=== PATIENT | male | born 1965 | race Hispanic/Latino ===

== ENCOUNTER 2021-12-19 16:02 | Inpatient (IN) | payer SELFPAY ==
--- NOTE | 2021-12-19 16:48 | Emergency Department Report ---
History of Present Illness - General Chief Complaint: Psych Stated Complaint: OD/SUICIDAL Time Seen by Provider: 12/19/21 16:14 Source: EMS Mode of arrival: Stretcher Limitations: No Limitations - History of Present Illness Initial Comments: 56-year male with a past medical history schizophrenia and depression presents to the hospital complaining of suicide attempt, depression, and drug relapse. Patient drink alcohol at 1 AM and smokes crack cocaine. He was distraught due to his relapse and around 6 AM took a bolus ingestion of Tylenol PM. Dose of acetaminophen 500 mg and dose of diphenhydramine 25 mg. Patient presents with a empty 50 capsule bottle and estimates he took 25 to 30 tablets this morning. Complains of some mild nausea without vomiting and some mild drowsiness but patient is easily arousable. No pain reported. Patient denies hallucinations and is not currently taking any other prescribed medication - Related Data Allergies Allergy/AdvReac Type Severity Reaction Status Date / Time No Known Allergies Allergy Unverified 02/23/20 02:39 ED Review of Systems ROS: Stated complaint: OD/SUICIDAL Other details as noted in HPI Comment: All other systems reviewed and negative ED Past Medical Hx - Surgical History Additional Surgical History: Cervical Discectomy. Tonsillectomy. Left Knee - Social History Smoking Status: Current Some Day Smoker Substance Use Type: Alcohol, Cocaine, Marijuana ED Physical Exam - General Limitations: No Limitations - Other Other exam information: General: No acute distress Head: Atraumatic Eyes: normal appearance ENT: Moist mucous membranes Neck: Normal appearance, no midline tenderness Chest: Clear to auscultation bilaterally CV: Regular rate and rhythm Abdomen: Soft, normal bowel sounds, nontender, nondistended, no rebound or guarding Back: Normal inspection Extremity: Normal inspection, full range of motion Neuro: Alert O x 3, no facial asymmetry, speech clear, no gross motor sensory deficit Psych: Appropriate behavior Skin: No rash ED Course Vital Signs 12/19/21 12/19/21 12/19/21 16:06 17:59 18:56 Temperature 98.0 F 97.8 F Pulse Rate 100 H 88 72 Respiratory 18 21 14 Rate Blood Pressure 109/76 126/86 132/56 [Right] O2 Sat by Pulse 98 100 99 Oximetry 12/19/21 12/19/21 20:01 20:03 Temperature 98.5 F Pulse Rate 78 Respiratory 20 Rate Blood Pressure 142/92 [Right] O2 Sat by Pulse 100 100 Oximetry - Reevaluation(s) Reevaluation #1: 12/19/21 17:39 RN called to expedite ordered IV NAC given elevated tylenol and lft's - Consultations Consultation #1: 12/19/21 16:59 RAMOS consulted at poison control. agree with Acetadote treatment based on unclear time of ingestion and single ingestion greater than 150 mg/kg. Recommends 2 hours prior to completion of the final infusion of Acetadote (third bag) recommends repeat AST, ALT, Tylenol, and INR to evaluate for the following parameters AST< 100 ALT < 100 INR < 1.5 tylenol < 10 If the results are greater than the parameters provided above (check 2 hours before completion of the final 16-hour infusion of Acetadote) then you need to repeat another 16-hour infusion of Acetadote. May call poison control for further clarification as needed Also recommend monitoring for anticholinergic poisoning given Benadryl overdose 12/19/21 17:40 Case discussed with poison control regarding elevated Tylenol and LFTs. Agree with current management to start NAC. 12/19/21 17:46 Received call back from poison control at this time who recommends a dose of fomepizole 15 mg/kg x 1 dose. Indication is that Tylenol level X ALT level is greater than 10,000 ED Medical Decision Making - Lab Data Result diagrams: 12/19/21 Unknown 12/19/21 Unknown - EKG Data -: EKG Interpreted by [facility] EKG shows normal: sinus rhythm, intervals Rate: normal - Medical Decision Making 56-year-old male presents to the hospital with depression, polysubstance abuse, and intentional overdose. Patient admits to drinking alcohol, crack use, and a bolus ingestion of Tylenol with diphenhydramine at approximately 6 AM. Bolus ingestion is greater than 150 mg/kg therefore NAC was ordered. Tylenol level and LFTs were elevated with normal INR. Poison control was contacted with recommendation to initiate NAC and to repeat the recommended labs 2 hours prior to completion of 16-hour infusion to determine if infusion needs to be continued for an additional 16 hours. Fomepizole x1 dose has also been ordered as recommended by poison control. patient also had ingestion of Benadryl however, no signs of anticholinergic poisoning at this time.These recommendations were placed in my note on the consults. We will continue to monitor. Patient will be admitted to the hospitalist service for further treatment. 1013 was signed Critical Care Time: Yes Critical care time in (mins) excluding proc time.: 35 Critical care attestation.: If time is entered above; I have spent that time in minutes in the direct care of this critically ill patient, excluding procedure time. Critical Care Time: 35 Minutes of critical care time excluding procedures were used in the care of the patient. I came immediately to the bedside upon patient's arrival. I obtained history from EMS at the bedside. I discussed treatment plan with the nursing team members. I reviewed electronic record. I spoke with family to obtain medical history. Patient required multiple interventions and reassessments. Spoke with posion control several times. hospitalist informed for admission ED Disposition Clinical Impression: Tylenol overdose, Suicidal ideation, Cocaine abuse, Depression, Anticholinergic drug overdose, Schizophrenia Disposition: ADMITTED INPATIENT Is pt being admited?: Yes Condition: Stable Time of Disposition: 18:02
[2021-12-19 17:00] LABS: Basophils % (Auto) 0.4 % (0.0-1.8); Eosinophils # (Auto) 0.1 K/mm3 (0.0-0.4); Eosinophils % (Auto) 0.5 % (0.0-4.3); Hematocrit 42.3 % (35.5-45.6); Hemoglobin 14.7 gm/dl (11.8-15.2); Lymphocytes # (Auto) 1.4 K/mm3 (1.2-5.4); Lymphocytes % (Auto) 13.4 % (13.4-35.0); Mean Corpuscular HGB Conc 35 % (32-34); Mean Corpuscular Volume 89 fl (84-94); Monocytes # (Auto) 0.9 K/mm3 (0.0-0.8); Platelet Count 232 K/mm3 (140-440); Red Blood Count 4.75 M/mm3 (3.65-5.03); Red Cell Distribution Width 13.1 % (13.2-15.2)
[2021-12-19] MEDS ORDERED: WATER IV ONE ×3 (17:00→22:00)
[2021-12-19] MEDS ORDERED: DEXTROSE 5% IV ONE ×3 (17:00→22:00)
[2021-12-19] MEDS ORDERED: ACETADOTE IV ONE ×3 (17:00→22:00)
[2021-12-19 17:19] LABS: INR 1.03 (0.87-1.13)
[2021-12-19 17:20] LABS: Partial Thromboplastin Time 31.4 Sec. (24.2-36.6)
[2021-12-19 17:24] LABS: Alanine Aminotransferase 216 units/L (7-56); Albumin 4.5 g/dL (3.9-5); BUN/Creatinine Ratio 17; Bilirubin,Direct 0.8 mg/dL (0-0.2); Blood Urea Nitrogen 15 mg/dL (9-20); Calcium 9.2 mg/dL (8.4-10.2); Hemolysis Index 5
[2021-12-19] MEDS ORDERED: SUCCINYLCHOLINE CHLORIDE 200 MG/10 ML INJ MDV ONE (17:37)
[2021-12-19] MEDS ORDERED: ALBUTEROL 2.5 MG/3 ML NEBU IH PRN (18:04)
[2021-12-19] MEDS ORDERED: HYDROmorphone 1 MG/1 ML INJ IV PRN (18:04)
[2021-12-19] MEDS ORDERED: MORPHINE 2 MG/1 ML INJ IV PRN (18:04)
--- NOTE | 2021-12-19 18:04 | History and Physical Report ---
History of Present Illness Chief complaint: I was trying to kill myself History of present illness: 56 YO Male with MDD, Schizophrenia, PSA, Cocaine Dependence, OA, Nicotine Dependence, ETOH Dependence presents to ED for evaluation. Patient reports "I was trying to kill myself". Patient states that he has been feeling depressed over the past several days and subsequently began drinking alcohol at 1 AM and ingested crack cocaine. Patient states that he subsequently became distraught due to his relapse and at approximately 6 AM the patient ingested approximately 25-30 acetaminophen 500 mg tablets and a dose of diphenhydramine 25 mg and attempt to take his own life. EMS was notified and upon arrival the patient was found to be in distress and subsequently transported to [facility] for further care and evaluation of the aforementioned symptoms. The patient was seen and evaluated in the emergency department. All lab and imaging studies reviewed. Poison control notified. Patient treated with Acetadote as per poison control recommendations and admitted to [facility]. Patient is lethargic but arousable at the time my evaluation and has a positive gag reflex and is able protect his airway without difficulty. No reports of fever, chills, chest pain, palpitation, productive cough, skin rash, recent contact, trauma, known exposure to COVID-19. No prior admission for review. No medication listed at time of admission for reconciliation. Advanced care planning conducted in ED. 1013 placed in the emergency department. Mental health team consulted in ED. Past History Past Medical History: other (See HPI) Past Surgical History: total knee replacement, tonsillectomy, Other (Cervical discectomy) Social history: single, alcohol abuse Family history: hypertension Medications and Allergies Allergies Allergy/AdvReac Type Severity Reaction Status Date / Time No Known Allergies Allergy Unverified 02/23/20 02:39 Active Meds: Active Medications Acetylcysteine 9,510 mg/ (Dextrose) 247.55 mls @ 200 mls/hr IV ONCE ONE Stop: 12/19/21 18:14 Last Admin: 12/19/21 17:38 Dose: 200 mls/hr Acetylcysteine 3,170 mg/ (Dextrose) 515.85 mls @ 125 mls/hr IV ONCE ONE Stop: 12/19/21 22:07 Acetylcysteine 6,340 mg/ (Dextrose) 1,031.7 mls @ 62.5 mls/hr IV ONCE ONE Stop: 12/20/21 14:30 Fomepizole 950 mg/ Sodium (Chloride) 100.95 mls @ 200 mls/hr IV ONCE ONE Stop: 12/19/21 19:15 Review of Systems Constitutional: no weight loss, no weight gain, no fever, no chills Ears, nose, mouth and throat: no ear pain, no tinnitis, no nose pain, no nasal congestion Cardiovascular: no chest pain, no palpitations, no syncope Respiratory: no cough, no excessive sputum, no shortness of breath, no dyspnea on exertion Gastrointestinal: nausea, no abdominal pain, no diarrhea, no constipation, no hematemesis Genitourinary Male: no hematuria, no flank pain, no discharge, no urinary frequency, no urinary hesitancy, no nocturia Rectal: no pain, no incontinence, no bleeding Musculoskeletal: no neck pain, no shooting arm pain, no arm numbness/tingling, no low back pain, no shooting leg pain Integumentary: no rash, no redness, no sores, no jaundice Neurological: no head injury, no weakness, no parathesias, no seizures, no syncope, no tremors, no lack of coordination Psychiatric: suicidal ideation, depression, hopelessness, sadness/tearfullness, mood swings, no anxiety Endocrine: no cold intolerance, no heat intolerance, no excessive thirst, no polyuria, no nocturia, no weight change Hematologic/Lymphatic: no easy bruising, no easy bleeding Allergic/Immunologic: no urticaria, no allergic rhinitis, no wheezing Exam - Constitutional Vitals: Temp Pulse Resp BP Pulse Ox 98.0 F 100 H 18 109/76 98 12/19/21 16:06 12/19/21 16:06 12/19/21 16:06 12/19/21 16:06 12/19/21 16:06 General appearance: Present: mild distress - EENT Eyes: Present: PERRL ENT: hearing intact, clear oral mucosa - Neck Neck: Present: supple, normal ROM - Respiratory Respiratory effort: normal Respiratory: bilateral: CTA - Cardiovascular Heart Sounds: Present: S1 & S2. Absent: rub, click - Extremities Extremities: pulses symmetrical, No edema Peripheral Pulses: within normal limits - Abdominal General gastrointestinal: Present: soft, non-tender, non-distended, normal bowel sounds Male genitourinary: Present: normal - Integumentary Integumentary: Present: clear, warm, dry - Musculoskeletal Musculoskeletal: generalized weakness - Psychiatric Psychiatric: no appropriate mood/affect, intact judgment & insight, agitated - Neurologic Neurologic: CNII-XII intact, moves all extremities Results - Labs CBC & Chem 7: 12/19/21 Unknown 12/19/21 Unknown Labs: Abnormal lab results 12/19/21 12/19/21 12/19/21 Range/Units Unknown Unknown Unknown MCHC 35 H (32-34) % RDW 13.1 L (13.2-15.2) % [place] % (Auto) 8.0 H (0.0-7.3) % [place] # (Auto) 0.9 H (0.0-0.8) K/mm3 Seg Neutrophils % 77.7 H (40.0-70.0) % Seg Neutrophils # 8.3 H (1.8-7.7) K/mm3 Total Bilirubin 1.80 H (0.1-1.2) mg/dL Direct Bilirubin 0.8 H (0-0.2) mg/dL AST 234 H (5-40) units/L ALT 216 H (7-56) units/L Total Protein 6.2 L (6.3-8.2) g/dL Salicylates < 0.3 L (2.8-20.0) mg/dL Acetaminophen (10.0-30.0) ug/mL 12/19/21 Range/Units Unknown MCHC (32-34) % RDW (13.2-15.2) % [place] % (Auto) (0.0-7.3) % [place] # (Auto) (0.0-0.8) K/mm3 Seg Neutrophils % (40.0-70.0) % Seg Neutrophils # (1.8-7.7) K/mm3 Total Bilirubin (0.1-1.2) mg/dL Direct Bilirubin (0-0.2) mg/dL AST (5-40) units/L ALT (7-56) units/L Total Protein (6.3-8.2) g/dL Salicylates (2.8-20.0) mg/dL Acetaminophen 52.2 H (10.0-30.0) ug/mL Assessment and Plan - Patient Problems (1) Intentional acetaminophen overdose Status: Acute Qualifiers: Encounter type: initial encounter Qualified Code(s): T39.1X2A - Poisoning by 4-Aminophenol derivatives, intentional self-harm, initial encounter Plan to address problem: Serial acetaminophen level, Poison control notified. RAMOS consulted at poison control. agree with Acetadote treatment based on unclear time of ingestion and single ingestion greater than 150 mg/kg. Recommends 2 hours prior to completion of the final infusion of Acetadote (third bag) recommends repeat AST, ALT, Tylenol, and INR to evaluate for the following parameters AST< 100 ALT < 100 INR < 1.5 tylenol < 10 If the results are greater than the parameters provided above (check 2 hours before completion of the final 16-hour infusion of Acetadote) then you need to repeat another 16-hour infusion of Acetadote. May call poison control for further clarification as needed Also recommend monitoring for anticholinergic poisoning given Benadryl overdose 12/19/21 17:40 Case discussed with poison control regarding elevated Tylenol and LFTs. Agree with current management to start NAC. 12/19/21 17:46 Received call back from poison control at this time who recommends a dose of fomepizole 15 mg/kg x 1 dose. Indication is that Tylenol level X ALT level is greater than 10,000 (2) Suicide attempt Status: Acute Plan to address problem: 1013 placed in the emergency department, mental health consult placed in the emergency department. (3) Cocaine dependence Status: Acute Plan to address problem: Supportive care, IV fluid resuscitation therapy, (4) Alcohol dependence Status: Acute Plan to address problem: Thiamine, folic acid, multivitamin, CIWA protocol. (5) DVT prophylaxis Status: Acute Plan to address problem: SCD to bilateral lower extremities while in bed (6) Advance care planning Status: Acute Plan to address problem: Disease education data, care plan discussed, diagnoses discussed, prognosis discussed, patient is full code, +30 minutes. (7) Preventative health care Status: Acute Plan to address problem: Patient counseled regarding management of life stressors, outpatient drug de pendence follow-up, outpatient psychiatric follow-up. +30 minutes.
[2021-12-19] MEDS ORDERED: FOMEPIZOLEV IV ONE (18:45)
[2021-12-19] MEDS ORDERED: SODIUM CHLORIDE 0.9% IV ONE (18:45)
[2021-12-19 20:08] LABS: Bilirubin,Urine NEG (Negative); Blood,Urine NEG (Negative); Color,Urine Yellow (Yellow); Mucus,Urine FEW /HPF; Protein,Urine <15 mg/dL mg/dL (Negative)
[2021-12-19 20:16] LABS: Amphetamine Screen,Urine Negative; Benzodiazepines Screen,Urine Negative; Cannabinoid Screen,Urine Negative; Methadone Screen,Urine Negative; Opiate Screen,Urine Negative
[2021-12-19 20:28] LABS: Cocaine Screen,Urine Positive
[2021-12-20] MEDS: SODIUM CHLORIDE 0.9% 1000 ML 1,000 ML IV SCH ×3 (00:45→16:22)
[2021-12-20 04:53] LABS: Basophils # (Auto) 0.1 K/mm3 (0.0-0.1); Basophils % (Auto) 0.7 % (0.0-1.8); Eosinophils # (Auto) 0.1 K/mm3 (0.0-0.4); Eosinophils % (Auto) 1.6 % (0.0-4.3); Hematocrit 42.1 % (35.5-45.6); Hemoglobin 14.1 gm/dl (11.8-15.2); Lymphocytes # (Auto) 1.9 K/mm3 (1.2-5.4); Lymphocytes % (Auto) 23.2 % (13.4-35.0); Mean Corpuscular HGB Conc 34 % (32-34); Mean Corpuscular Volume 90 fl (84-94); Monocytes # (Auto) 0.3 K/mm3 (0.0-0.8); Monocytes % (Auto) 3.7 % (0.0-7.3); Platelet Count 233 K/mm3 (140-440); Red Blood Count 4.67 M/mm3 (3.65-5.03); Red Cell Distribution Width 13.1 % (13.2-15.2)
[2021-12-20 05:10] LABS: Alanine Aminotransferase 649 units/L (7-56); Albumin 3.9 g/dL (3.9-5); Blood Urea Nitrogen 17 mg/dL (9-20); Calcium 8.4 mg/dL (8.4-10.2); Hemolysis Index 9
[2021-12-20 05:12] LABS: BUN/Creatinine Ratio 24
[2021-12-20 18:05] LABS: INR 1.67 (0.87-1.13)
[2021-12-20 18:36] LABS: Alanine Aminotransferase 1759 units/L (7-56)
[2021-12-20] MEDS ORDERED: WATER IV ONE (20:30)
[2021-12-20] MEDS ORDERED: ACETADOTE IV ONE (20:30)
[2021-12-20] MEDS ORDERED: DEXTROSE 5% IV ONE (20:30)
[2021-12-21] MEDS: SODIUM CHLORIDE 0.9% 1000 ML 1,000 ML IV SCH ×3 (02:33→18:46)
[2021-12-21 05:17] LABS: Hematocrit 41.8 % (35.5-45.6); Mean Corpuscular HGB Conc 34 % (32-34); Mean Corpuscular Volume 90 fl (84-94); Platelet Count 182 K/mm3 (140-440); Red Blood Count 4.64 M/mm3 (3.65-5.03); Red Cell Distribution Width 12.7 % (13.2-15.2)
[2021-12-21 05:20] LABS: Basophils # (Auto) 0.1 K/mm3 (0.0-0.1); Basophils % (Auto) 1.8 % (0.0-1.8); Eosinophils % (Auto) 0.2 % (0.0-4.3); Lymphocytes # (Auto) 0.6 K/mm3 (1.2-5.4); Lymphocytes % (Auto) 7.7 % (13.4-35.0); Monocytes # (Auto) 0.2 K/mm3 (0.0-0.8); Monocytes % (Auto) 3.3 % (0.0-7.3)
[2021-12-21 05:38] LABS: Albumin 3.7 g/dL (3.9-5); BUN/Creatinine Ratio 14; Blood Urea Nitrogen 10 mg/dL (9-20); Calcium 8.1 mg/dL (8.4-10.2); Hemolysis Index 11
[2021-12-21 05:53] LABS: Alanine Aminotransferase 6943 units/L (7-56)
--- NOTE | 2021-12-21 07:23 | Progress Note ---
Assessment and Plan Assessment and Plan - Patient Problems (1) Intentional acetaminophen overdose Status: Acute Qualifiers: Encounter type: initial encounter Qualified Code(s): T39.1X2A - Poisoning by 4-Aminophenol derivatives, intentional self-harm, initial encounter Plan to address problem: Serial acetaminophen level, Poison control notified. Worsening liver enzyme levels with AST of 717 and ALT of 649 RAMOS consulted at poison control. agree with Acetadote treatment based on unclear time of ingestion and single ingestion greater than 150 mg/kg. Recommends 2 hours prior to completion of the final infusion of Acetadote (third bag) recommends repeat AST, ALT, Tylenol, and INR to evaluate for the following parameters AST< 100 ALT < 100 INR < 1.5 tylenol < 10 If the results are greater than the parameters provided above (check 2 hours before completion of the final 16-hour infusion of Acetadote) then you need to repeat another 16-hour infusion of Acetadote. May call poison control for further clarification as needed Also recommend monitoring for anticholinergic poisoning given Benadryl overdose Worsening liver enzyme levels AST and ALT of 234/216 has worsened to 717/649 respectively Continue acetylcysteine Present control giving the recommendations to the ICU (2) Suicide attempt Status: Acute Plan to address problem: 1013 placed in the emergency department, mental health consult placed in the emergency department. (3) Cocaine dependence Status: Acute Plan to address problem: Supportive care, IV fluid resuscitation therapy, (4) Alcohol dependence Status: Acute Plan to address problem: Thiamine, folic acid, multivitamin, CIWA protocol. (5) DVT prophylaxis Status: Acute Plan to address problem: SCD to bilateral lower extremities while in bed (6) Advance care planning Status: Acute Plan to address problem: Disease education data, care plan discussed, diagnoses discussed, prognosis discussed, patient is full code, +30 minutes. (7) Preventative health care Status: Acute Plan to address problem: Patient counseled regarding management of life stressors, outpatient drug dependence follow-up, outpatient psychiatric follow-up. +30 minutes. Subjective Date of service: 12/20/21 Principal diagnosis: Tylenol overdose, severe transaminitis Interval history: 56 YO Male with MDD, Schizophrenia, PSA, Cocaine Dependence, OA, Nicotine Dependence, ETOH Dependence presents to ED for evaluation. Patient reports "I was trying to kill myself". Patient states that he has been feeling depressed over the past several days and subsequently began drinking alcohol at 1 AM and ingested crack cocaine. Patient states that he subsequently became distraught due to his relapse and at approximately 6 AM the patient ingested approximately 25-30 acetaminophen 500 mg tablets and a dose of diphenhydramine 25 mg and attempt to take his own life. EMS was notified and upon arrival the patient was found to be in distress and subsequently transported to [facility] for further care and evaluation of the aforementioned symptoms. The patient was seen and evaluated in the emergency department. All lab and imaging studies reviewed. Poison control notified. Patient treated with Acetadote as per poison control recommendations and admitted to [facility]. Patient is lethargic but arousable at the time my evaluation and has a positive gag reflex and is able protect his airway without difficulty. No reports of fever, chills, chest pain, palpitation, productive cough, skin rash, recent contact, trauma, known exposure to COVID-19. No prior admission for review. No medication listed at time of admission for reconciliation. Advanced care planning conducted in ED. 1013 placed in the emergency department. Mental health team consulted in ED. 12/20/2021 Tylenol overdose Patient symptomatically better Worsening transaminitis AST is worsened from 234to 717 ALT is worsened from 216 to 649 Needs more antidote per poison control Objective - Constitutional Vitals: Vital Signs - 12hr 12/20/21 12/20/21 12/20/21 19:31 19:41 19:51 Temperature Pulse Rate 86 81 79 Pulse Rate [ From Monitor] Respiratory 10 L 28 H 25 H Rate Blood Pressure 133/87 133/87 133/87 O2 Sat by Pulse 98 99 98 Oximetry 12/20/21 12/20/21 12/20/21 20:00 20:14 21:00 Temperature 98.1 F Pulse Rate 77 77 76 Pulse Rate [ 77 From Monitor] Respiratory 28 H 29 H Rate Blood Pressure 129/86 129/88 O2 Sat by Pulse 99 98 Oximetry 12/20/21 12/20/21 12/20/21 22:00 23:00 23:09 Temperature Pulse Rate 77 81 87 Pulse Rate [ From Monitor] Respiratory 28 H 29 H 35 H Rate Blood Pressure 136/88 129/82 129/82 O2 Sat by Pulse 98 98 98 Oximetry 12/21/21 12/21/21 12/21/21 00:00 01:00 02:00 Temperature 98.2 F Pulse Rate 87 87 87 Pulse Rate [ 87 From Monitor] Respiratory 31 H 40 H 27 H Rate Blood Pressure 122/77 136/98 135/86 O2 Sat by Pulse 97 96 98 Oximetry 12/21/21 12/21/21 12/21/21 03:01 03:15 03:45 Temperature Pulse Rate 102 H Pulse Rate [ From Monitor] Respiratory 17 18 14 Rate Blood Pressure 139/84 O2 Sat by Pulse 99 Oximetry 12/21/21 12/21/21 12/21/21 04:00 05:00 06:00 Temperature 98 F Pulse Rate 87 78 77 Pulse Rate [ 85 From Monitor] Respiratory 23 27 H 26 H Rate Blood Pressure 147/90 135/88 136/86 O2 Sat by Pulse 98 98 98 Oximetry - Labs CBC & Chem 7: 12/21/21 04:48 12/21/21 04:48 Labs: Abnormal lab results 12/20/21 12/20/21 12/20/21 Range/Units 15:07 15:08 17:30 RDW (13.2-15.2) % Lymph % (Auto) (13.4-35.0) % Lymph # (Auto) (1.2-5.4) K/mm3 Seg Neutrophils % (40.0-70.0) % PT 21.8 H (12.2-14.9) Sec. INR 1.67 H (0.87-1.13) Sodium (137-145) mmol/L Carbon Dioxide (22-30) mmol/L Creatinine (0.8-1.3) mg/dL Glucose (75-100) mg/dL Calcium (8.4-10.2) mg/dL Total Bilirubin (0.1-1.2) mg/dL AST 1762 H (5-40) units/L ALT 1759 H (7-56) units/L Total Protein (6.3-8.2) g/dL Albumin (3.9-5) g/dL Acetaminophen 5.0 L (10.0-30.0) ug/mL 12/21/21 12/21/21 Range/Units 04:48 04:48 RDW 12.7 L (13.2-15.2) % Lymph % (Auto) 7.7 L (13.4-35.0) % Lymph # (Auto) 0.6 L (1.2-5.4) K/mm3 Seg Neutrophils % 87.0 H (40.0-70.0) % PT (12.2-14.9) Sec. INR (0.87-1.13) Sodium 136 L (137-145) mmol/L Carbon Dioxide 21 L (22-30) mmol/L Creatinine 0.7 L (0.8-1.3) mg/dL Glucose 104 H (75-100) mg/dL Calcium 8.1 L (8.4-10.2) mg/dL Total Bilirubin 2.20 H (0.1-1.2) mg/dL AST 8459 H (5-40) units/L ALT 6943 H (7-56) units/L Total Protein 5.0 L (6.3-8.2) g/dL Albumin 3.7 L (3.9-5) g/dL Acetaminophen (10.0-30.0) ug/mL
--- NOTE | 2021-12-21 08:48 | Progress Note ---
Assessment and Plan Assessment and plan: HPI: 56 YO Male with MDD, Schizophrenia, PSA, Cocaine Dependence, OA, Nicotine Dependence, ETOH Dependence presents to ED for evaluation. Patient reports "I was trying to kill myself". Patient states that he has been feeling depressed over the past several days and subsequently began drinking alcohol at 1 AM and ingested crack cocaine. Patient states that he subsequently became distraught due to his relapse and at approximately 6 AM the patient ingested approximately 25-30 acetaminophen 500 mg tablets and a dose of diphenhydramine 25 mg and attempt to take his own life. EMS was notified and upon arrival the patient was found to be in distress and subsequently transported to [facility] for further care and evaluation of the aforementioned symptoms. The patient was seen and evaluated in the emergency department. All lab and imaging studies reviewed. Poison control notified. Patient treated with Acetadote as per poison control recommendations and admitted to [facility]. Patient is lethargic but arousable at the time my evaluation and has a positive gag reflex and is able protect his airway without difficulty. No reports of fever, chills, chest pain, palpitation, productive cough, skin rash, recent contact, trauma, known exposure to COVID-19. No prior admission for review. No medication listed at time of admission for reconciliation. Advanced care planning conducted in ED. 1013 placed in the emergency department. Mental health team consulted in ED. Hospital Course 12/20/2021 Tylenol overdose Patient symptomatically better Worsening transaminitis AST is worsened from 234to 717 ALT is worsened from 216 to 649 Needs more antidote per poison control 12/21: AOx4 on encounter. Remain comfortably no acute complaints AST: 32888, ALT 82792, INR: 1.67--> 2.58, hepatic indices to tracked BID US liver pending, may order CTAP if further visualization of hepobiliary tree needed. Continues to get N-acetylcysteine IV per direction of poison control hepatitis panel pending. Continue supportive care. GI consultation, D/w Dr. Stevie Machado. 0 of [facility] Criteria met for Liver transplant referral. Lacks payor source, homeless, suicide attempt so not a candidate for liver transplantation. Assessment and Plan: (1) Intentional acetaminophen overdose Status: Acute Qualifiers: Encounter type: initial encounter Qualified Code(s): T39.1X2A - Poisoning by 4-Aminophenol derivatives, intentional self-harm, initial encounter Plan to address problem: Serial acetaminophen level, Poison control notified. Worsening liver enzyme levels with AST of 717 and ALT of 649 RAMOS consulted at poison control. agree with Acetadote treatment based on unclear time of ingestion and single ingestion greater than 150 mg/kg. Recommends 2 hours prior to completion of the final infusion of Acetadote (third bag) recommends repeat AST, ALT, Tylenol, and INR to evaluate for the following parameters AST< 100 ALT < 100 INR < 1.5 tylenol < 10 If the results are greater than the parameters provided above (check 2 hours before completion of the final 16-hour infusion of Acetadote) then you need to repeat another 16-hour infusion of Acetadote. May call poison control for further clarification as needed Also recommend monitoring for anticholinergic poisoning given Benadryl overdose Worsening liver enzyme levels AST and ALT of 234/216 has worsened to 717/649 respectively Continue acetylcysteine Present control giving the recommendations to the ICU (2) Suicide attempt Status: Acute Plan to address problem: 1013 placed in the emergency department, mental health consult placed in the emergency department. (3) Cocaine dependence Status: Acute Plan to address problem: Supportive care, IV fluid resuscitation therapy, (4) Alcohol dependence Status: Acute Plan to address problem: Thiamine, folic acid, multivitamin, CIWA protocol. (5) DVT prophylaxis Status: Acute Plan to address problem: SCD to bilateral lower extremities while in bed (6) Advance care planning Status: Acute Plan to address problem: Disease education data, care plan discussed, diagnoses discussed, prognosis disc ussed, patient is full code, +30 minutes. (7) Preventative health care Status: Acute Plan to address problem: Patient counseled regarding management of life stressors, outpatient drug dependence follow-up, outpatient psychiatric follow-up. +30 minutes. The high probability of a clinically significant, sudden or life threatening deterioration of the [hepatic, heme] system(s) required my full and direct attention, intervention and personal management. The aggregate critical care time was [60] minutes. This time is in addition to time spent performing reported procedures but includes the following: [x] Data Review and interpretation [x] Patient assessment and monitoring of vital signs [x] Documentation [x] Medication orders and management History Interval history: Patient resting comfortably on encounter. He is alert and oriented x4. He denied any acute pain, discomfort. Hospitalist Physical - Physical exam Narrative exam: Physical Exam: VITAL SIGNS: Reviewed. GENERAL: The patient appears normally developed, Vital signs as documented. Descheveled gentleman, older than stated age. HEAD: No signs of head trauma. EYES: Pupils are equal. Extraocular motions intact. EARS: Hearing grossly intact. MOUTH: Oropharynx is normal. NECK: No adenopathy, no JVD. CHEST: Chest with clear breath sounds bilaterally. No wheezes, rales, or rhonchi. CARDIAC: Regular rate and rhythm. S1 and S2, without murmurs, gallops, or rubs. VASCULAR: No Edema. Peripheral pulses normal and equal in all extremities. ABDOMEN: Soft, non tender and non distended. No rebound or guarding, and no masses palpated. Bowel Sounds normal. MUSCULOSKELETAL: Good range of motion of all major joints. Extremities without clubbing, cyanosis or edema. NEUROLOGIC EXAM: Alert and oriented x 4. no focal sensory or strength deficits. PSYCHIATRIC: Mood normal. SKIN: detail exam as documented in skin assessment - Constitutional Vitals: Temp Pulse Resp BP Pulse Ox 98 F 77 26 H 136/86 98 12/21/21 04:00 12/21/21 06:00 12/21/21 06:00 12/21/21 06:00 12/21/21 06:00 General appearance: Present: mild distress Results - Labs CBC & Chem 7: 12/21/21 04:48 12/21/21 04:48 Labs: Laboratory Last Values WBC 7.2 K/mm3 (4.5-11.0) 12/21/21 04:48 RBC 4.64 M/mm3 (3.65-5.03) 12/21/21 04:48 Hgb 14.0 gm/dl (11.8-15.2) 12/21/21 04:48 Hct 41.8 % (35.5-45.6) 12/21/21 04:48 MCV 90 fl (84-94) 12/21/21 04:48 MCH 30 pg (28-32) 12/21/21 04:48 MCHC 34 % (32-34) 12/21/21 04:48 RDW 12.7 % (13.2-15.2) L 12/21/21 04:48 Plt Count 182 K/mm3 (140-440) 12/21/21 04:48 Lymph % (Auto) 7.7 % (13.4-35.0) L 12/21/21 04:48 [place] % (Auto) 3.3 % (0.0-7.3) 12/21/21 04:48 Eos % (Auto) 0.2 % (0.0-4.3) 12/21/21 04:48 Baso % (Auto) 1.8 % (0.0-1.8) 12/21/21 04:48 Lymph # (Auto) 0.6 K/mm3 (1.2-5.4) L 12/21/21 04:48 [place] # (Auto) 0.2 K/mm3 (0.0-0.8) 12/21/21 04:48 Eos # (Auto) 0.0 K/mm3 (0.0-0.4) 12/21/21 04:48 Baso # (Auto) 0.1 K/mm3 (0.0-0.1) 12/21/21 04:48 Seg Neutrophils % 87.0 % (40.0-70.0) H 12/21/21 04:48 Seg Neutrophils # 6.3 K/mm3 (1.8-7.7) 12/21/21 04:48 PT 21.8 Sec. (12.2-14.9) H 12/20/21 17:30 INR 1.67 (0.87-1.13) H 12/20/21 17:30 APTT 31.4 Sec. (24.2-36.6) 12/19/21 Unknown Sodium 136 mmol/L (137-145) L 12/21/21 04:48 Potassium 4.3 mmol/L (3.6-5.0) 12/21/21 04:48 Chloride 101.0 mmol/L (98-107) 12/21/21 04:48 Carbon Dioxide 21 mmol/L (22-30) L 12/21/21 04:48 Anion Gap 18 mmol/L 12/21/21 04:48 BUN 10 mg/dL (9-20) 12/21/21 04:48 Creatinine 0.7 mg/dL (0.8-1.3) L 12/21/21 04:48 Estimated GFR > 60 ml/min 12/21/21 04:48 BUN/Creatinine Ratio 14 % 12/21/21 04:48 Glucose 104 mg/dL (75-100) H 12/21/21 04:48 Calcium 8.1 mg/dL (8.4-10.2) L 12/21/21 04:48 Magnesium 1.80 mg/dL (1.7-2.3) 12/19/21 Unknown Total Bilirubin 2.20 mg/dL (0.1-1.2) H 12/21/21 04:48 Direct Bilirubin 0.8 mg/dL (0-0.2) H 12/19/21 Unknown Indirect Bilirubin 1.0 mg/dL 12/19/21 Unknown AST 8459 units/L (5-40) H 12/21/21 04:48 ALT 6943 units/L (7-56) H 12/21/21 04:48 Alkaline Phosphatase 106 units/L (35-129) 12/21/21 04:48 Total Creatine Kinase 119 units/L (55-170) 12/19/21 Unknown Total Protein 5.0 g/dL (6.3-8.2) L 12/21/21 04:48 Albumin 3.7 g/dL (3.9-5) L 12/21/21 04:48 Albumin/Globulin Ratio 2.8 % 12/21/21 04:48 Urine Color Yellow (Yellow) 12/19/21 Unknown Urine Turbidity Clear (Clear) 12/19/21 Unknown Urine pH 5.0 (5.0-7.0) 12/19/21 Unknown Ur Specific [place] 1.028 (1.003-1.030) 12/19/21 Unknown Urine Protein <15 mg/dl mg/dL (Negative) 12/19/21 Unknown Urine Glucose (UA) Neg mg/dL (Negative) 12/19/21 Unknown Urine Ketones 20 mg/dL (Negative) 12/19/21 Unknown Urine Blood Neg (Negative) 12/19/21 Unknown Urine Nitrite Neg (Negative) 12/19/21 Unknown Urine Bilirubin Neg (Negative) 12/19/21 Unknown Urine Urobilinogen 2.0 mg/dL (<2.0) 12/19/21 Unknown Ur Leukocyte Esterase Neg (Negative) 12/19/21 Unknown Urine WBC (Auto) 2.0 /HPF (0.0-6.0) 12/19/21 Unknown Urine RBC (Auto) 0.0 /HPF (0.0-6.0) 12/19/21 Unknown Urine Mucus Few /HPF 12/19/21 Unknown Salicylates < 0.3 mg/dL (2.8-20.0) L 12/19/21 Unknown Urine Opiates Screen Negative 12/19/21 Unknown Urine Methadone Screen Negative 12/19/21 Unknown Acetaminophen 5.0 ug/mL (10.0-30.0) L 12/20/21 15:08 Ur Barbiturates Screen Negative 12/19/21 Unknown Ur Phencyclidine Scrn Negative 12/19/21 Unknown Ur Amphetamines Screen Negative 12/19/21 Unknown U Benzodiazepines Scrn Negative 12/19/21 Unknown Urine Cocaine Screen Positive 12/19/21 Unknown U Marijuana (THC) Screen Negative 12/19/21 Unknown Drugs of Abuse Note Disclamer 12/19/21 Unknown Plasma/Serum Alcohol < 0.01 % (0-0.07) 12/19/21 Unknown [place]/IV: Voiding Method Urinal Active Medications - Current Medications Current Medications: Generic Name Dose Route Start Last Admin Trade Name Freq PRN Reason Stop Dose Admin Albuterol 2.5 mg 12/19/21 18:04 Albuterol 2.5 Mg/3 Ml Nebu IH Q3HRT PRN Shortness Of Breath Hydromorphone HCl 0.5 mg 12/19/21 18:04 Hydromorphone 1 Mg/1 Ml Inj IV Q13H PRN Pain , Severe (7-10) Sodium Chloride 1,000 mls @ 125 mls/hr 12/19/21 18:45 12/21/21 02:33 Nacl 0.9% 1000 Ml IV 125 mls/hr DIRECT MARCOS Administration Acetylcysteine 6,340 mg/ 1,031.7 mls @ 62.5 mls/hr 12/20/21 20:30 12/20/21 19:35 Dextrose IV 12/21/21 13:00 62.5 mls/hr ONCE ONE Administration Ibuprofen 600 mg 12/19/21 18:04 Ibuprofen 600 Mg Tab PO Q6H PRN Pain, Mild (1-3) Morphine Sulfate 2 mg 12/19/21 18:04 12/21/21 03:15 Morphine 2 Mg/1 Ml Inj IV 2 mg Q8H PRN Administration Pain, Moderate (4-6) Sodium Chloride 10 ml 12/19/21 22:00 12/20/21 21:04 Sodium Chloride 0.9% 10 Ml Flush Syringe IV 10 ml BID MARCOS Administration Sodium Chloride 10 ml 12/19/21 18:04 Sodium Chloride 0.9% 10 Ml Flush Syringe IV PRN PRN LINE FLUSH
[2021-12-21] MEDS: IBUPROFEN 600 MG TAB PO PRN ×2 (09:36→19:58)
--- NOTE | 2021-12-21 10:44 | Gastroenterology Consultation ---
History of Present Illness - Reason for Consult Consult date: 12/21/21 acute liver injury Requesting physician: LAY RODRIGUEZ - History of Present Illness The patient is a 56 yo male who presented after tylenol overdose. he reports consuming ~20 tylenol pm meds in suicide attempt. he had a couple alcoholic beverages the night before tylenol intake. Per chart review, he also ingested cocaine, and has had h/o alcohol abuse. He was found to have significant elevation in liver enzymes, tylenol level of > 50, and elevated INR yesterday. No signs of overt hepatic encephalopathy. He is homeless, no insurance. no known h/o chronic liver issues and denies other otc/new meds. Past History Past Medical History: other (schizophrenia, [place] drug use) Past Surgical History: total knee replacement, tonsillectomy, Other (Cervical discectomy) Social history: single, alcohol abuse Family history: hypertension Medications and Allergies Allergies Allergy/AdvReac Type Severity Reaction Status Date / Time No Known Allergies Allergy Unverified 02/23/20 02:39 Active Meds: Active Medications Albuterol (Albuterol 2.5 Mg/3 Ml Nebu) 2.5 mg IH Q3HRT PRN PRN Reason: Shortness Of Breath Hydromorphone HCl (Hydromorphone 1 Mg/1 Ml Inj) 0.5 mg IV Q13H PRN PRN Reason: Pain , Severe (7-10) Sodium Chloride (Nacl 0.9% 1000 Ml) 1,000 mls @ 125 mls/hr IV DIRECT MARCOS Last Admin: 12/21/21 09:52 Dose: 125 mls/hr Acetylcysteine 6,340 mg/ (Dextrose) 1,031.7 mls @ 62.5 mls/hr IV ONCE ONE Stop: 12/21/21 13:00 Last Admin: 12/20/21 19:35 Dose: 62.5 mls/hr Ibuprofen (Ibuprofen 600 Mg Tab) 600 mg PO Q6H PRN PRN Reason: Pain, Mild (1-3) Last Admin: 12/21/21 09:36 Dose: 600 mg Morphine Sulfate (Morphine 2 Mg/1 Ml Inj) 2 mg IV Q8H PRN PRN Reason: Pain, Moderate (4-6) Last Admin: 12/21/21 03:15 Dose: 2 mg Sodium Chloride (Sodium Chloride 0.9% 10 Ml Flush Syringe) 10 ml IV BID MARCOS Last Admin: 12/21/21 09:23 Dose: 10 ml Sodium Chloride (Sodium Chloride 0.9% 10 Ml Flush Syringe) 10 ml IV PRN PRN PRN Reason: LINE FLUSH Reviewed/updated patient's home and current medications Review of Systems - Review of Systems All systems: negative (per HPI) Exam - Constitutional Vital Signs: Temp Pulse Resp BP Pulse Ox 98 F 77 26 H 136/86 98 12/21/21 04:00 12/21/21 06:00 12/21/21 06:00 12/21/21 06:00 12/21/21 06:00 General appearance: no acute distress - EENT Eyes: PERRL, EOM intact - Respiratory Respiratory effort: normal Respiratory: bilateral: CTA - Cardiovascular Rhythm: regular Heart Sounds: Present: S1 & S2 - Gastrointestinal General gastrointestinal: Present: soft, non-tender, non-distended - Neurologic Neurological: alert and oriented x3 - Labs CBC & Chem 7: 12/21/21 04:48 12/21/21 04:48 Lab Results: Laboratory Results - last 24 hr 12/20/21 12/20/21 12/20/21 15:07 15:08 17:30 WBC RBC Hgb Hct MCV MCH MCHC RDW Plt Count Lymph % (Auto) [place] % (Auto) Eos % (Auto) Baso % (Auto) Lymph # (Auto) [place] # (Auto) Eos # (Auto) Baso # (Auto) Seg Neutrophils % Seg Neutrophils # PT 21.8 H INR 1.67 H Sodium Potassium Chloride Carbon Dioxide Anion Gap BUN Creatinine Estimated GFR BUN/Creatinine Ratio Glucose Calcium Total Bilirubin AST 1762 H ALT 1759 H Alkaline Phosphatase Total Protein Albumin Albumin/Globulin Ratio Acetaminophen 5.0 L 12/21/21 12/21/21 04:48 04:48 WBC 7.2 RBC 4.64 Hgb 14.0 Hct 41.8 MCV 90 MCH 30 MCHC 34 RDW 12.7 L Plt Count 182 Lymph % (Auto) 7.7 L [place] % (Auto) 3.3 Eos % (Auto) 0.2 Baso % (Auto) 1.8 Lymph # (Auto) 0.6 L [place] # (Auto) 0.2 Eos # (Auto) 0.0 Baso # (Auto) 0.1 Seg Neutrophils % 87.0 H Seg Neutrophils # 6.3 PT INR Sodium 136 L Potassium 4.3 Chloride 101.0 Carbon Dioxide 21 L Anion Gap 18 BUN 10 Creatinine 0.7 L Estimated GFR > 60 BUN/Creatinine Ratio 14 Glucose 104 H Calcium 8.1 L Total Bilirubin 2.20 H AST 8459 H ALT 6943 H Alkaline Phosphatase 106 Total Protein 5.0 L Albumin 3.7 L Albumin/Globulin Ratio 2.8 Acetaminophen Assessment and Plan 1. Acute liver injury - likely from tylenol OD, also with recent alcohol ingestion. not a transplant candidate as he does not have insurance, homeless/poor social support and suicide attempt. no signs of RESIDENTIAL at present time since not overt hepatic encephalopathy. agree with NAC, monitor INR and liver enzymes BID. needs imaging as well, can start off with RUQ US to make sure no biliary dilatation issues, but ideally CT scan if able. cont supportive care otherwise and follow.
[2021-12-21 11:11] LABS: INR 2.58 (0.87-1.13)
--- NOTE | 2021-12-21 11:17 | Consultation ---
History of Present Illness - Reason for Consult Consult date: 12/21/21 Reason for consult: MDD/ OD - Chief Complaint Chief complaint: I was trying to kill myself - History of Present Psychiatric Illness Per note:56 YO Male with MDD, Schizophrenia, PSA, Cocaine Dependence, OA, Nicotine Dependence, ETOH Dependence presents to ED for evaluation. Patient reports "I was trying to kill myself". Patient states that he has been feeling depressed over the past several days and subsequently began drinking alcohol at 1 AM and ingested crack cocaine. Patient states that he subsequently became distraught due to his relapse and at approximately 6 AM the patient ingested approximately 25-30 acetaminophen 500 mg tablets and a dose of diphenhydramine 25 mg and attempt to take his own life. EMS was notified and upon arrival the patient was found to be in distress and subsequently transported to [facility] for further care and evaluation of the aforementioned symptoms. The patient was seen and evaluated in the emergency department. All lab and imaging studies reviewed. Poison control notified. Patient treated with Acetadote as per poison control recommendations and admitted to [facility]. Patient is lethargic but arousable at the time my evaluation and has a positive gag reflex and is able protect his airway without difficulty. No reports of fever, chills, chest pain, palpitation, productive cough, skin rash, recent contact, trauma, known exposure to COVID-19. No prior admission for review. No medication listed at time of admission for reconciliation. Advanced care planning conducted in ED. 1013 placed in the emergency department. Mental health team consulted in ED. The patient is a 56 year old male with history of schizophrenia, bipolar, and polysubstance abuse. In my encounter with the patient, he is calm alert and oriented x3. The patient reports ongoing problem with polysubstance abuse, he states he last used crack cocaine, alcohol and marijuana about a week ago. The patient states he started using drugs as a teenager; he reports 5 inpatient admissions to rehab facilities in the past 5 years. He states his longest sobriety period as 4 years. When asking reason for his repeated relapses, he states " I get frustrated over finance, and performance, if things don't go well, I might as well use drugs." The patient states that he got frustrated about his drug addiction and intentionally tried to overdose on about 25 to 28 tablets of acetaminophen PM. He endorses depression, rates as 8/10; he reports having suicidal ideation with no plan and denies hallucinations. He denies having withdrawal symptoms. PAST PSYCHIATRIC HISTORY: Diagnoses:Schizophrenia Bipolar, Polysubstance abuse Suicide attempts or Self-harm behavior: Denies Prior psychiatric hospitalizations: yes Substance Abuse history: LSD, Cocaine, Alcohol, Marijuana Previous psychiatric medications tried: Unable to recall Outpatient treatment: Unknown PAST MEDICAL HISTORY: None reported or document Family Psychiatric History: None reported or documented SOCIAL HISTORY Marital Status: Single Living Arrangements: Homeless Employment Status: Unemployed Access to guns/weapons: denies Education: 3 years in college History of Abuse: denies Legal History: denies REVIEW OF SYSTEMS Constitutional: Negative for weight loss ENT: Negative for stridor Respiratory: Negative for cough or hemoptysis All other systems reviewed and are negative MENTAL STATUS EXAMINATION General Appearance and Behavior: Age appropriate, good hygiene, wearing appropriate clothes, calm and cooperative polite with questioning. Cooperation: engaged Psychomotor Behavior: Psychomotor normal Mood: depressed Affect and affective range: congruent with stated mood Thought Process: Goal directed Thought Content: Reality oriented Speech: Normal volume, Regular rate and rhythm, Suicidal Ideation: Yes Homicidal Ideation: Denies Hallucinations: Denies Delusions: None elicited Impulse Control: Normal Insight and Judgment: Limited Memory: Normal Attention: attentive Orientation: a/o x3 Diagnoses: Schizoaffective Disorder Treatment Plan TREATMENT PLAN 1013 Start Prozac 20mg po daily Start Trazodone 50mg po QHS- when patient is able to take PO. Continue home medications. Sitter: per primary Medical: per primary Disposition: Recommend acute psychiatric inpatient treatment. Will follow. Thanks Medications and Allergies Allergies Allergy/AdvReac Type Severity Reaction Status Date / Time No Known Allergies Allergy Unverified 02/23/20 02:39 Active Meds: Active Medications Albuterol (Albuterol 2.5 Mg/3 Ml Nebu) 2.5 mg IH Q3HRT PRN PRN Reason: Shortness Of Breath Hydromorphone HCl (Hydromorphone 1 Mg/1 Ml Inj) 0.5 mg IV Q13H PRN PRN Reason: Pain , Severe (7-10) Sodium Chloride (Nacl 0.9% 1000 Ml) 1,000 mls @ 125 mls/hr IV DIRECT MARCOS Last Admin: 12/21/21 09:52 Dose: 125 mls/hr Acetylcysteine 6,340 mg/ (Dextrose) 1,031.7 mls @ 62.5 mls/hr IV ONCE ONE Stop: 12/21/21 13:00 Last Admin: 12/20/21 19:35 Dose: 62.5 mls/hr Ibuprofen (Ibuprofen 600 Mg Tab) 600 mg PO Q6H PRN PRN Reason: Pain, Mild (1-3) Last Admin: 12/21/21 09:36 Dose: 600 mg Morphine Sulfate (Morphine 2 Mg/1 Ml Inj) 2 mg IV Q8H PRN PRN Reason: Pain, Moderate (4-6) Last Admin: 12/21/21 03:15 Dose: 2 mg Sodium Chloride (Sodium Chloride 0.9% 10 Ml Flush Syringe) 10 ml IV BID MARCOS Last Admin: 12/21/21 09:23 Dose: 10 ml Sodium Chloride (Sodium Chloride 0.9% 10 Ml Flush Syringe) 10 ml IV PRN PRN PRN Reason: LINE FLUSH Mental Status Exam - Vital signs Last Vital Signs Temp 98 F 12/21/21 04:00 Pulse 77 12/21/21 06:00 Resp 26 H 12/21/21 06:00 BP 136/86 12/21/21 06:00 Pulse Ox 98 12/21/21 06:00 Results Result Diagrams: 12/21/21 04:48 12/21/21 04:48 Abnormal lab results 12/20/21 12/20/21 12/20/21 Range/Units 15:07 15:08 17:30 RDW (13.2-15.2) % Lymph % (Auto) (13.4-35.0) % Lymph # (Auto) (1.2-5.4) K/mm3 Seg Neutrophils % (40.0-70.0) % PT 21.8 H (12.2-14.9) Sec. INR 1.67 H (0.87-1.13) Sodium (137-145) mmol/L Carbon Dioxide (22-30) mmol/L Creatinine (0.8-1.3) mg/dL Glucose (75-100) mg/dL Calcium (8.4-10.2) mg/dL Total Bilirubin (0.1-1.2) mg/dL AST 1762 H (5-40) units/L ALT 1759 H (7-56) units/L Total Protein (6.3-8.2) g/dL Albumin (3.9-5) g/dL Acetaminophen 5.0 L (10.0-30.0) ug/mL 12/21/21 12/21/21 12/21/21 Range/Units 04:48 04:48 10:38 RDW 12.7 L (13.2-15.2) % Lymph % (Auto) 7.7 L (13.4-35.0) % Lymph # (Auto) 0.6 L (1.2-5.4) K/mm3 Seg Neutrophils % 87.0 H (40.0-70.0) % PT 31.1 H (12.2-14.9) Sec. INR 2.58 H (0.87-1.13) Sodium 136 L (137-145) mmol/L Carbon Dioxide 21 L (22-30) mmol/L Creatinine 0.7 L (0.8-1.3) mg/dL Glucose 104 H (75-100) mg/dL Calcium 8.1 L (8.4-10.2) mg/dL Total Bilirubin 2.20 H (0.1-1.2) mg/dL AST 8459 H (5-40) units/L ALT 6943 H (7-56) units/L Total Protein 5.0 L (6.3-8.2) g/dL Albumin 3.7 L (3.9-5) g/dL Acetaminophen (10.0-30.0) ug/mL All other labs normal.
[2021-12-21 11:49] LABS: Alanine Aminotransferase 12459 units/L (7-56)
[2021-12-21] MEDS ORDERED: ACETADOTE IV ONE (13:15)
[2021-12-21] MEDS ORDERED: DEXTROSE 5% IV ONE (13:15)
[2021-12-21] MEDS ORDERED: WATER IV ONE (13:15)
--- NOTE | 2021-12-21 13:31 | Electrocardiograph Report ---
[facility] Test Date: 2021-12-19 Test Time: 16:33:07 Pat Name: BANDAR PARTIDA Department: Room: A265 1 Gender: M Wound Care Coordinator: COLT : 1965 Requested By: SHER HOOKS Order Number: [id number] Reading MD: Emmanuel Guerrero Measurements Intervals [place] Rate: 76 P: 82 NM: 142 QRS: 95 QRSD: 95 T: 73 QT: 407 QTc: 458 Interpretive Statements Sinus rhythm No previous ECG available for comparison Electronically Signed On 12-21-2021 13:31:33 EDT by Emmanuel Guerrero
[2021-12-21] MEDS: FLUoxetine 20 MG CAP PO SCH (13:58)
[2021-12-21 15:06] LABS: INR 2.28 (0.87-1.13)
--- NOTE | 2021-12-21 17:54 | Ultrasound Report ---
ULTRASOUND ABDOMEN, COMPLETE INDICATION: liver failure, cirrhosis. COMPARISON: No relevant prior imaging study available. FINDINGS: Pancreas: No significant abnormality. Abdominal Aorta: Normal size. IVC: No significant abnormality. Liver: The liver measures 14.7 cm in length. No significant abnormality. Normal hepatopedal blood fl ow in the main portal vein. Gallbladder: No significant abnormality. Bile ducts: No significant abnormality. Common bile duct measures 4 mm. Kidneys: Right: 10.4 cm in length. No significant abnormality. Left: 10.2 cm in length. No signif icant abnormality. Spleen: No significant abnormality. Free fluid: None. Additional Findings: None. IMPRESSION: 1. No sonographic abnormality of the abdomen. Signer Name: Brian Floyd MD Signed: 12/21/2021 5:50 PM Workstation Name: [id number]
[2021-12-21 20:36] LABS: Albumin 3.7 g/dL (3.9-5); Bilirubin,Direct 1.1 mg/dL (0-0.2)
[2021-12-21] MEDS: traZODone 50 MG TAB PO SCH (22:55)
[2021-12-22] MEDS: IBUPROFEN 600 MG TAB PO PRN ×2 (08:14→18:25)
--- NOTE | 2021-12-22 09:12 | Progress Note ---
Assessment and Plan Assessment and plan: HPI: 56 YO Male with MDD, Schizophrenia, PSA, Cocaine Dependence, OA, Nicotine Dependence, ETOH Dependence presents to ED for evaluation. Patient reports "I was trying to kill myself". Patient states that he has been feeling depressed over the past several days and subsequently began drinking alcohol at 1 AM and ingested crack cocaine. Patient states that he subsequently became distraught due to his relapse and at approximately 6 AM the patient ingested approximately 25-30 acetaminophen 500 mg tablets and a dose of diphenhydramine 25 mg and attempt to take his own life. EMS was notified and upon arrival the patient was found to be in distress and subsequently transported to [facility] for further care and evaluation of the aforementioned symptoms. The patient was seen and evaluated in the emergency department. All lab and imaging studies reviewed. Poison control notified. Patient treated with Acetadote as per poison control recommendations and admitted to [facility]. Patient is lethargic but arousable at the time my evaluation and has a positive gag reflex and is able protect his airway without difficulty. No reports of fever, chills, chest pain, palpitation, productive cough, skin rash, recent contact, trauma, known exposure to COVID-19. No prior admission for review. No medication listed at time of admission for reconciliation. Advanced care planning conducted in ED. 1013 placed in the emergency department. Mental health team consulted in ED. Hospital Course 12/20/2021 Tylenol overdose Patient symptomatically better Worsening transaminitis AST is worsened from 234to 717 ALT is worsened from 216 to 649 Needs more antidote per poison control 12/21: AOx4 on encounter. Remain comfortably no acute complaints AST: 54932, ALT 46655, INR: 1.67--> 2.58, hepatic indices to tracked BID US liver pending, may order CTAP if further visualization of hepobiliary tree needed. Continues to get N-acetylcysteine IV per direction of poison control hepatitis panel pending. Continue supportive care. GI consultation, D/w Dr. Stevie Machado. [address] [facility] Criteria met for Liver transplant referral. Lacks payer source, homeless, suicide attempt so not a candidate for liver transplantation. 12/22: INR improved to 1.58, PT: 20.8 Transaminases appear to have plateaued. Currently downtrending AST: 7K, ALT 10K, Total bili 2.1, Direct bili: 0.7. D/w Dr. Stevie Machado IV NAC infusing, continuation as per poison control. Continue to monitor liver indices q12hr. Avoid hepatotoxic agents Psych recommendations noted, continuation of 1013, patient initiated on prozac and trazadone, will need inpatient psych placement. Assessment and Plan: (1) Intentional acetaminophen overdose Status: Acute Qualifiers: Encounter type: initial encounter Qualified Code(s): T39.1X2A - Poisoning by 4-Aminophenol derivatives, intentional self-harm, initial encounter Plan to address problem: Elevated APAP level on admission. Poison control initial recommendations: RAMOS consulted at poison control. agree with Acetadote treatment based on unclear time of ingestion and single ingestion greater than 150 mg/kg. Recommends 2 hours prior to completion of the final infusion of Acetadote (third bag) recommends repeat AST, ALT, Tylenol, and INR to evaluate for the following parameters AST< 100 ALT < 100 INR < 1.5 tylenol < 10 If the results are greater than the parameters provided above (check 2 hours before completion of the final 16-hour infusion of Acetadote) then you need to repeat another 16-hour infusion of Acetadote. May call poison control for further clarification as needed Also recommend monitoring for anticholinergic poisoning given Benadryl overdose Continue acetylcysteine IV remains in IMCU Will continue to follow poison control guidance Gi/hepatology following Improvement in hepatic markers (pt/inr, bili, transaminases), continue to monitor q12hr (2) Suicide attempt Status: Acute Plan to address problem: 1013 placed in the emergency department, mental health consult placed in the emergency department. Prozac Trazadone psychiatry following, recommend inpatient psych (3) Cocaine dependence Status: Acute Plan to address problem: Supportive care, IV fluid resuscitation therapy, (4) Alcohol dependence Status: Acute Plan to address problem: Thiamine, folic acid, multivitamin, CIWA protocol. (5) DVT prophylaxis Status: Acute Plan to address problem: SCD to bilateral lower extremities while in bed (6) Advance care planning Status: Acute Plan to address problem: Disease education data, care plan discussed, diagnoses discussed, prognosis di scussed, patient is full code, +30 minutes. (7) Preventative health care Status: Acute Plan to address problem: Patient counseled regarding management of life stressors, outpatient drug dependence follow-up, outpatient psychiatric follow-up. +30 minutes. The high probability of a clinically significant, sudden or life threatening deterioration of the [hepatic, heme] system(s) required my full and direct attention, intervention and personal management. The aggregate critical care time was [60] minutes. This time is in addition to time spent performing reported procedures but includes the following: [x] Data Review and interpretation [x] Patient assessment and monitoring of vital signs [x] Documentation [x] Medication orders and management History Interval history: No acute complaints today. Remains AOx4. Hospitalist Physical - Physical exam Narrative exam: Physical Exam: VITAL SIGNS: Reviewed. GENERAL: The patient appears normally developed, Vital signs as documented. Descheveled gentleman, older than stated age. HEAD: No signs of head trauma. EYES: Pupils are equal. Extraocular motions intact. EARS: Hearing grossly intact. MOUTH: Oropharynx is normal. NECK: No adenopathy, no JVD. CHEST: Chest with clear breath sounds bilaterally. No wheezes, rales, or rhonchi. CARDIAC: Regular rate and rhythm. S1 and S2, without murmurs, gallops, or rubs. VASCULAR: No Edema. Peripheral pulses normal and equal in all extremities. ABDOMEN: Soft, non tender and non distended. No rebound or guarding, and no masses palpated. Bowel Sounds normal. MUSCULOSKELETAL: Good range of motion of all major joints. Extremities without clubbing, cyanosis or edema. NEUROLOGIC EXAM: Alert and oriented x 4. no focal sensory or strength deficits. PSYCHIATRIC: Mood normal. SKIN: detail exam as documented in skin assessment - Constitutional Vitals: Temp Pulse Resp BP Pulse Ox 98.9 F 87 21 135/81 97 12/22/21 04:00 12/22/21 07:00 12/22/21 07:00 12/22/21 07:00 12/22/21 07:00 General appearance: Present: mild distress Results - Labs CBC & Chem 7: 12/21/21 04:48 12/21/21 04:48 Labs: Laboratory Last Values WBC 7.2 K/mm3 (4.5-11.0) 12/21/21 04:48 RBC 4.64 M/mm3 (3.65-5.03) 12/21/21 04:48 Hgb 14.0 gm/dl (11.8-15.2) 12/21/21 04:48 Hct 41.8 % (35.5-45.6) 12/21/21 04:48 MCV 90 fl (84-94) 12/21/21 04:48 MCH 30 pg (28-32) 12/21/21 04:48 MCHC 34 % (32-34) 12/21/21 04:48 RDW 12.7 % (13.2-15.2) L 12/21/21 04:48 Plt Count 182 K/mm3 (140-440) 12/21/21 04:48 Lymph % (Auto) 7.7 % (13.4-35.0) L 12/21/21 04:48 [place] % (Auto) 3.3 % (0.0-7.3) 12/21/21 04:48 Eos % (Auto) 0.2 % (0.0-4.3) 12/21/21 04:48 Baso % (Auto) 1.8 % (0.0-1.8) 12/21/21 04:48 Lymph # (Auto) 0.6 K/mm3 (1.2-5.4) L 12/21/21 04:48 [place] # (Auto) 0.2 K/mm3 (0.0-0.8) 12/21/21 04:48 Eos # (Auto) 0.0 K/mm3 (0.0-0.4) 12/21/21 04:48 Baso # (Auto) 0.1 K/mm3 (0.0-0.1) 12/21/21 04:48 Seg Neutrophils % 87.0 % (40.0-70.0) H 12/21/21 04:48 Seg Neutrophils # 6.3 K/mm3 (1.8-7.7) 12/21/21 04:48 PT 28.1 Sec. (12.2-14.9) H 12/21/21 14:42 INR 2.28 (0.87-1.13) H 12/21/21 14:42 APTT 31.4 Sec. (24.2-36.6) 12/19/21 Unknown Sodium 136 mmol/L (137-145) L 12/21/21 04:48 Potassium 4.3 mmol/L (3.6-5.0) 12/21/21 04:48 Chloride 101.0 mmol/L (98-107) 12/21/21 04:48 Carbon Dioxide 21 mmol/L (22-30) L 12/21/21 04:48 Anion Gap 18 mmol/L 12/21/21 04:48 BUN 10 mg/dL (9-20) 12/21/21 04:48 Creatinine 0.7 mg/dL (0.8-1.3) L 12/21/21 04:48 Estimated GFR > 60 ml/min 12/21/21 04:48 BUN/Creatinine Ratio 14 % 12/21/21 04:48 Glucose 104 mg/dL (75-100) H 12/21/21 04:48 Calcium 8.1 mg/dL (8.4-10.2) L 12/21/21 04:48 Magnesium 1.80 mg/dL (1.7-2.3) 12/19/21 Unknown Total Bilirubin 2.20 mg/dL (0.1-1.2) H 12/21/21 20:16 Direct Bilirubin 1.1 mg/dL (0-0.2) H 12/21/21 20:16 Indirect Bilirubin 1.1 mg/dL 12/21/21 20:16 AST 28475 units/L (5-40) H 12/21/21 20:16 ALT 50523 units/L (7-56) H 12/21/21 20:16 Alkaline Phosphatase 113 units/L (35-129) 12/21/21 20:16 Total Creatine Kinase 119 units/L (55-170) 12/19/21 Unknown Total Protein 5.2 g/dL (6.3-8.2) L 12/21/21 20:16 Albumin 3.7 g/dL (3.9-5) L 12/21/21 20:16 Albumin/Globulin Ratio 2.5 % 12/21/21 20:16 Urine Color Yellow (Yellow) 12/19/21 Unknown Urine Turbidity Clear (Clear) 12/19/21 Unknown Urine pH 5.0 (5.0-7.0) 12/19/21 Unknown Ur Specific [place] 1.028 (1.003-1.030) 12/19/21 Unknown Urine Protein <15 mg/dl mg/dL (Negative) 12/19/21 Unknown Urine Glucose (UA) Neg mg/dL (Negative) 12/19/21 Unknown Urine Ketones 20 mg/dL (Negative) 12/19/21 Unknown Urine Blood Neg (Negative) 12/19/21 Unknown Urine Nitrite Neg (Negative) 12/19/21 Unknown Urine Bilirubin Neg (Negative) 12/19/21 Unknown Urine Urobilinogen 2.0 mg/dL (<2.0) 12/19/21 Unknown Ur Leukocyte Esterase Neg (Negative) 12/19/21 Unknown Urine WBC (Auto) 2.0 /HPF (0.0-6.0) 12/19/21 Unknown Urine RBC (Auto) 0.0 /HPF (0.0-6.0) 12/19/21 Unknown Urine Mucus Few /HPF 12/19/21 Unknown Salicylates < 0.3 mg/dL (2.8-20.0) L 12/19/21 Unknown Urine Opiates Screen Negative 12/19/21 Unknown Urine Methadone Screen Negative 12/19/21 Unknown Acetaminophen 5.0 ug/mL (10.0-30.0) L 12/20/21 15:08 Ur Barbiturates Screen Negative 12/19/21 Unknown Ur Phencyclidine Scrn Negative 12/19/21 Unknown Ur Amphetamines Screen Negative 12/19/21 Unknown U Benzodiazepines Scrn Negative 12/19/21 Unknown Urine Cocaine Screen Positive 12/19/21 Unknown U Marijuana (THC) Screen Negative 12/19/21 Unknown Drugs of Abuse Note Disclamer 12/19/21 Unknown Plasma/Serum Alcohol < 0.01 % (0-0.07) 12/19/21 Unknown [place]/IV: Voiding Method Urinal Active Medications - Current Medications Current Medications: Generic Name Dose Route Start Last Admin Trade Name Freq PRN Reason Stop Dose Admin Albuterol 2.5 mg 12/19/21 18:04 Albuterol 2.5 Mg/3 Ml Nebu IH Q3HRT PRN Shortness Of Breath Fluoxetine HCl 20 mg 12/21/21 12:00 12/21/21 13:58 Fluoxetine 20 Mg Cap PO 20 mg QDAY MARCOS Administration Hydromorphone HCl 0.5 mg 12/19/21 18:04 Hydromorphone 1 Mg/1 Ml Inj IV Q13H PRN Pain , Severe (7-10) Sodium Chloride 1,000 mls @ 125 mls/hr 12/19/21 18:45 12/21/21 18:46 Nacl 0.9% 1000 Ml IV 125 mls/hr DIRECT MARCOS Administration Ibuprofen 600 mg 12/19/21 18:04 12/22/21 08:14 Ibuprofen 600 Mg Tab PO 600 mg Q6H PRN Administration Pain, Mild (1-3) Morphine Sulfate 2 mg 12/19/21 18:04 12/21/21 03:15 Morphine 2 Mg/1 Ml Inj IV 2 mg Q8H PRN Administration Pain, Moderate (4-6) Sodium Chloride 10 ml 12/19/21 22:00 12/21/21 22:55 Sodium Chloride 0.9% 10 Ml Flush Syringe IV 10 ml BID MARCOS Administration Sodium Chloride 10 ml 12/19/21 18:04 Sodium Chloride 0.9% 10 Ml Flush Syringe IV PRN PRN LINE FLUSH Trazodone HCl 50 mg 12/21/21 22:00 12/21/21 22:55 Trazodone 50 Mg Tab PO 50 mg QHS MARCOS Administration Nutrition/Malnutrition Assess - Dietary Evaluation Nutrition/Malnutrition Findings: Nutrition Notes Start: 12/21/21 11:31 Freq: Status: Active Protocol: Document 12/21/21 11:32 [facility] (Rec: 12/21/21 11:37 [facility] [id number]) Nutrition Notes Need for 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 PMHx includes cocaine and EtOH dependence. Sitter at bedside. Burn Absent Trauma Absent Minimum of two criteria No #1 Nutrition Diagnosis Inadequate oral intake Etiology depression, suicide attempt As Evidenced by Signs and Symptoms pt NPO at this time Is patient on ventilator? No Is Patient Ambulatory and/or Out of Bed No REE-(Lindsey-St. Jeor-confined to bed) 3301.017 Calculation Used for Recommendations [facility] Additional Notes Pro needs 0.8-1g/k-63g/ day Fluid needs 1ml/kcal Nutrition Intervention Change Diet Order: Advance diet when medically feasible Goal #1 Diet advancement to meet nutrient needs Anticipated Discharge Needs: None identified at this time Follow-Up By: 12/24/21 Additional Comments F/U: diet advancement, wt assessment
[2021-12-22] MEDS: FLUoxetine 20 MG CAP PO SCH (09:29)
[2021-12-22 09:39] LABS: Albumin 3.5 g/dL (3.9-5); Bilirubin,Direct 0.7 mg/dL (0-0.2)
[2021-12-22 10:46] LABS: INR 1.58 (0.87-1.13)
--- NOTE | 2021-12-22 16:42 | Gastroenterology Progress Note ---
Assessment and Plan 1. acute liver injury - 2/2 tylenol and suspect underlying chronic alcohol use. INR improving. mental status remains normal. liver enzymes hopefully peaked. cont supportive care/monitoring labs, NAC per primary. will follow Subjective Date of service: 12/22/21 Principal diagnosis: Tylenol overdose, severe transaminitis Interval history: pt resting comfortably, mentation remains normal Objective - Constitutional Vitals: Temp Pulse Resp BP Pulse Ox 98.7 F 76 19 137/86 98 12/22/21 12:00 12/22/21 15:00 12/22/21 15:00 12/22/21 15:00 12/22/21 15:00 General appearance: no acute distress - Respiratory Respiratory effort: normal Respiratory: bilateral: CTA - Cardiovascular Rhythm: regular Heart Sounds: Present: S1 & S2 - Gastrointestinal General gastrointestinal: Present: soft, non-tender, non-distended - Neurologic Neurological: alert and oriented x3 - Labs CBC & Chem 7: 12/21/21 04:48 12/21/21 04:48 Labs: Laboratory Results - last 24 hr 12/21/21 12/22/21 12/22/21 20:16 09:40 Unknown PT 20.8 H INR 1.58 H Total Bilirubin 2.20 H 2.10 H Direct Bilirubin 1.1 H 0.7 H Indirect Bilirubin 1.1 1.4 AST 88974 H 7767 H ALT 49520 H 72810 H Alkaline Phosphatase 113 116 Total Protein 5.2 L 5.1 L Albumin 3.7 L 3.5 L Albumin/Globulin Ratio 2.5 2.2
[2021-12-22] MEDS: SODIUM CHLORIDE 0.9% 1000 ML 1,000 ML IV SCH ×2 (17:49→23:41)
[2021-12-22] MEDS: traZODone 50 MG TAB PO SCH (21:35)
[2021-12-22 22:52] LABS: Alanine Aminotransferase 9756 units/L (7-56)
[2021-12-22] MEDS: ACETADOTE IV SCH (23:41)
[2021-12-22] MEDS: WATER IV SCH (23:41)
[2021-12-22] MEDS: DEXTROSE 5% IV SCH (23:41)
[2021-12-22 23:54] LABS: INR 1.3 (0.87-1.13)
[2021-12-23] MEDS: IBUPROFEN 600 MG TAB PO PRN ×3 (06:07→21:17)
[2021-12-23 09:21] LABS: Albumin 3.3 g/dL (3.9-5); Bilirubin,Direct 1.1 mg/dL (0-0.2)
[2021-12-23] MEDS: FLUoxetine 20 MG CAP PO SCH (09:58)
[2021-12-23] MEDS: SODIUM CHLORIDE 0.9% 1000 ML 1,000 ML IV SCH ×2 (09:59→23:59)
[2021-12-23 10:09] LABS: INR 1.14 (0.87-1.13)
--- NOTE | 2021-12-23 11:01 | Progress Note ---
Assessment and Plan Assessment and plan: HPI: 56 YO Male with MDD, Schizophrenia, PSA, Cocaine Dependence, OA, Nicotine Dependence, ETOH Dependence presents to ED for evaluation. Patient reports "I was trying to kill myself". Patient states that he has been feeling depressed over the past several days and subsequently began drinking alcohol at 1 AM and ingested crack cocaine. Patient states that he subsequently became distraught due to his relapse and at approximately 6 AM the patient ingested approximately 25-30 acetaminophen 500 mg tablets and a dose of diphenhydramine 25 mg and attempt to take his own life. EMS was notified and upon arrival the patient was found to be in distress and subsequently transported to [facility] for further care and evaluation of the aforementioned symptoms. The patient was seen and evaluated in the emergency department. All lab and imaging studies reviewed. Poison control notified. Patient treated with Acetadote as per poison control recommendations and admitted to [facility]. Patient is lethargic but arousable at the time my evaluation and has a positive gag reflex and is able protect his airway without difficulty. No reports of fever, chills, chest pain, palpitation, productive cough, skin rash, recent contact, trauma, known exposure to COVID-19. No prior admission for review. No medication listed at time of admission for reconciliation. Advanced care planning conducted in ED. 1013 placed in the emergency department. Mental health team consulted in ED. Hospital Course 12/20/2021 Tylenol overdose Patient symptomatically better Worsening transaminitis AST is worsened from 234to 717 ALT is worsened from 216 to 649 Needs more antidote per poison control 12/21: AOx4 on encounter. Remain comfortably no acute complaints AST: 14933, ALT 02329, INR: 1.67--> 2.58, hepatic indices to tracked BID US liver pending, may order CTAP if further visualization of hepobiliary tree needed. Continues to get N-acetylcysteine IV per direction of poison control hepatitis panel pending. Continue supportive care. GI consultation, D/w Dr. Stevie Machado. 0 of [facility] Criteria met for Liver transplant referral. Lacks payer source, homeless, suicide attempt so not a candidate for liver transplantation. 12/22: INR improved to 1.58, PT: 20.8 Transaminases appear to have plateaued. Currently downtrending AST: 7K, ALT 10K, Total bili 2.1, Direct bili: 0.7. D/w Dr. Stevie Machado IV NAC infusing, continuation as per poison control. Continue to monitor liver indices q12hr. Avoid hepatotoxic agents Psych recommendations noted, continuation of 1013, patient initiated on prozac and trazadone, will need inpatient psych placement. 12/23: Transaminases downtrending, hepatic indices have demonstrated improvement. IV NAC continues to be infusing we will continue as per direction of poison control. Will await for AST, ALT, INR to normalize. Patient will need inpatient psychiatry placement once medically clear. Assessment and Plan: (1) Intentional acetaminophen overdose Status: Acute Qualifiers: Encounter type: initial encounter Qualified Code(s): T39.1X2A - Poisoning by 4-Aminophenol derivatives, intentional self-harm, initial encounter Plan to address problem: Elevated APAP level on admission. Poison control initial recommendations: RAMOS consulted at poison control. agree with Acetadote treatment based on unclear time of ingestion and single ingestion greater than 150 mg/kg. Recommends 2 hours prior to completion of the final infusion of Acetadote (third bag) recommends repeat AST, ALT, Tylenol, and INR to evaluate for the following parameters AST< 100 ALT < 100 INR < 1.5 tylenol < 10 If the results are greater than the parameters provided above (check 2 hours before completion of the final 16-hour infusion of Acetadote) then you need to repeat another 16-hour infusion of Acetadote. May call poison control for further clarification as needed Also recommend monitoring for anticholinergic poisoning given Benadryl overdose Continue acetylcysteine IV remains in IMCU Will continue to follow poison control guidance Gi/hepatology following Improvement in hepatic markers (pt/inr, bili, transaminases), continue to monitor q12hr (2) Suicide attempt Status: Acute Plan to address problem: 1013 placed in the emergency department, mental health consult placed in the emergency department. Prozac Trazadone psychiatry following, recommend inpatient psych (3) Cocaine dependence Status: Acute Plan to address problem: Supportive care, IV fluid resuscitation therapy, (4) Alcohol dependence Status: Acute Plan to address problem: Thiamine, folic acid, multivitamin, CIWA protocol. (5) DVT prophylaxis Status: Acute Plan to address problem: SCD to bilateral lower extremities while in bed (6) Advance care planning Status: Acute Plan to address problem: Disease education data, care plan discussed, diagnoses discussed, prognosis discussed, patient is full code, +30 minutes. (7) Preventative health care Status: Acute Plan to address problem: Patient counseled regarding management of life stressors, outpatient drug dependence follow-up, outpatient psychiatric follow-up. +30 minutes. The high probability of a clinically significant, sudden or life threatening deterioration of the [hepatic, heme] system(s) required my full and direct attention, intervention and personal management. The aggregate critical care time was [60] minutes. This time is in addition to time spent performing reported procedures but includes the following: [x] Data Review and interpretation [x] Patient assessment and monitoring of vital signs [x] Documentation [x] Medication orders and management History Interval history: No acute complaints today. Remains AOx4. Hospitalist Physical - Physical exam Narrative exam: Physical Exam: VITAL SIGNS: Reviewed. GENERAL: The patient appears normally developed, Vital signs as documented. Descheveled gentleman, older than stated age. HEAD: No signs of head trauma. EYES: Pupils are equal. Extraocular motions intact. EARS: Hearing grossly intact. MOUTH: Oropharynx is normal. NECK: No adenopathy, no JVD. CHEST: Chest with clear breath sounds bilaterally. No wheezes, rales, or rhonchi. CARDIAC: Regular rate and rhythm. S1 and S2, without murmurs, gallops, or rubs. VASCULAR: No Edema. Peripheral pulses normal and equal in all extremities. ABDOMEN: Soft, non tender and non distended. No rebound or guarding, and no masses palpated. Bowel Sounds normal. MUSCULOSKELETAL: Good range of motion of all major joints. Extremities without clubbing, cyanosis or edema. NEUROLOGIC EXAM: Alert and oriented x 4. no focal sensory or strength deficits. PSYCHIATRIC: Mood normal. SKIN: detail exam as documented in skin assessment - Constitutional Vitals: Temp Pulse Resp BP Pulse Ox 97.4 F L 65 16 133/74 95 12/23/21 09:46 12/23/21 07:00 12/23/21 07:07 12/23/21 07:00 12/23/21 07:00 General appearance: Present: mild distress Results - Labs CBC & Chem 7: 12/21/21 04:48 12/21/21 04:48 Labs: Laboratory Last Values WBC 7.2 K/mm3 (4.5-11.0) 12/21/21 04:48 RBC 4.64 M/mm3 (3.65-5.03) 12/21/21 04:48 Hgb 14.0 gm/dl (11.8-15.2) 12/21/21 04:48 Hct 41.8 % (35.5-45.6) 12/21/21 04:48 MCV 90 fl (84-94) 12/21/21 04:48 MCH 30 pg (28-32) 12/21/21 04:48 MCHC 34 % (32-34) 12/21/21 04:48 RDW 12.7 % (13.2-15.2) L 12/21/21 04:48 Plt Count 182 K/mm3 (140-440) 12/21/21 04:48 Lymph % (Auto) 7.7 % (13.4-35.0) L 12/21/21 04:48 [place] % (Auto) 3.3 % (0.0-7.3) 12/21/21 04:48 Eos % (Auto) 0.2 % (0.0-4.3) 12/21/21 04:48 Baso % (Auto) 1.8 % (0.0-1.8) 12/21/21 04:48 Lymph # (Auto) 0.6 K/mm3 (1.2-5.4) L 12/21/21 04:48 [place] # (Auto) 0.2 K/mm3 (0.0-0.8) 12/21/21 04:48 Eos # (Auto) 0.0 K/mm3 (0.0-0.4) 12/21/21 04:48 Baso # (Auto) 0.1 K/mm3 (0.0-0.1) 12/21/21 04:48 Seg Neutrophils % 87.0 % (40.0-70.0) H 12/21/21 04:48 Seg Neutrophils # 6.3 K/mm3 (1.8-7.7) 12/21/21 04:48 PT 15.9 Sec. (12.2-14.9) H 12/23/21 08:31 INR 1.14 (0.87-1.13) H 12/23/21 08:31 APTT 31.4 Sec. (24.2-36.6) 12/19/21 Unknown Sodium 136 mmol/L (137-145) L 12/21/21 04:48 Potassium 4.3 mmol/L (3.6-5.0) 12/21/21 04:48 Chloride 101.0 mmol/L (98-107) 12/21/21 04:48 Carbon Dioxide 21 mmol/L (22-30) L 12/21/21 04:48 Anion Gap 18 mmol/L 12/21/21 04:48 BUN 10 mg/dL (9-20) 12/21/21 04:48 Creatinine 0.7 mg/dL (0.8-1.3) L 12/21/21 04:48 Estimated GFR > 60 ml/min 12/21/21 04:48 BUN/Creatinine Ratio 14 % 12/21/21 04:48 Glucose 104 mg/dL (75-100) H 12/21/21 04:48 Calcium 8.1 mg/dL (8.4-10.2) L 12/21/21 04:48 Magnesium 1.80 mg/dL (1.7-2.3) 12/19/21 Unknown Total Bilirubin 2.20 mg/dL (0.1-1.2) H 12/23/21 08:31 Direct Bilirubin 1.1 mg/dL (0-0.2) H 12/23/21 08:31 Indirect Bilirubin 1.1 mg/dL 12/23/21 08:31 AST 2366 units/L (5-40) H 12/23/21 08:31 ALT 6368 units/L (7-56) H 12/23/21 08:31 Alkaline Phosphatase 117 units/L (35-129) 12/23/21 08:31 Total Creatine Kinase 119 units/L (55-170) 12/19/21 Unknown Total Protein 4.6 g/dL (6.3-8.2) L 12/23/21 08:31 Albumin 3.3 g/dL (3.9-5) L 12/23/21 08:31 Albumin/Globulin Ratio 2.5 % 12/23/21 08:31 Urine Color Yellow (Yellow) 12/19/21 Unknown Urine Turbidity Clear (Clear) 12/19/21 Unknown Urine pH 5.0 (5.0-7.0) 12/19/21 Unknown Ur Specific [place] 1.028 (1.003-1.030) 12/19/21 Unknown Urine Protein <15 mg/dl mg/dL (Negative) 12/19/21 Unknown Urine Glucose (UA) Neg mg/dL (Negative) 12/19/21 Unknown Urine Ketones 20 mg/dL (Negative) 12/19/21 Unknown Urine Blood Neg (Negative) 12/19/21 Unknown Urine Nitrite Neg (Negative) 12/19/21 Unknown Urine Bilirubin Neg (Negative) 12/19/21 Unknown Urine Urobilinogen 2.0 mg/dL (<2.0) 12/19/21 Unknown Ur Leukocyte Esterase Neg (Negative) 12/19/21 Unknown Urine WBC (Auto) 2.0 /HPF (0.0-6.0) 12/19/21 Unknown Urine RBC (Auto) 0.0 /HPF (0.0-6.0) 12/19/21 Unknown Urine Mucus Few /HPF 12/19/21 Unknown Salicylates < 0.3 mg/dL (2.8-20.0) L 12/19/21 Unknown Urine Opiates Screen Negative 12/19/21 Unknown Urine Methadone Screen Negative 12/19/21 Unknown Acetaminophen 5.0 ug/mL (10.0-30.0) L 12/20/21 15:08 Ur Barbiturates Screen Negative 12/19/21 Unknown Ur Phencyclidine Scrn Negative 12/19/21 Unknown Ur Amphetamines Screen Negative 12/19/21 Unknown U Benzodiazepines Scrn Negative 12/19/21 Unknown Urine Cocaine Screen Positive 12/19/21 Unknown U Marijuana (THC) Screen Negative 12/19/21 Unknown Drugs of Abuse Note Disclamer 12/19/21 Unknown Plasma/Serum Alcohol < 0.01 % (0-0.07) 12/19/21 Unknown Lgeer/IV: Voiding Method Urinal Active Medications - Current Medications Current Medications: Generic Name Dose Route Start Last Admin Trade Name Freq PRN Reason Stop Dose Admin Albuterol 2.5 mg 12/19/21 18:04 Albuterol 2.5 Mg/3 Ml Nebu IH Q3HRT PRN Shortness Of Breath Fluoxetine HCl 20 mg 12/21/21 12:00 12/23/21 09:58 Fluoxetine 20 Mg Cap PO 20 mg QDAY MARCOS Administration Sodium Chloride 1,000 mls @ 125 mls/hr 12/19/21 18:45 12/23/21 09:59 Nacl 0.9% 1000 Ml IV 125 mls/hr DIRECT MARCOS Administration Acetylcysteine 6,340 mg/ 1,031.7 mls @ 62.5 mls/hr 12/22/21 23:15 12/22/21 23:41 Dextrose IV 62.5 mls/hr DIRECT MARCOS Administration Ibuprofen 600 mg 12/19/21 18:04 12/23/21 06:07 Ibuprofen 600 Mg Tab PO 600 mg Q6H PRN Administration Pain, Mild (1-3) Morphine Sulfate 2 mg 12/19/21 18:04 12/21/21 03:15 Morphine 2 Mg/1 Ml Inj IV 2 mg Q8H PRN Administration Pain, Moderate (4-6) Sodium Chloride 10 ml 12/19/21 22:00 12/22/21 21:35 Sodium Chloride 0.9% 10 Ml Flush Syringe IV 10 ml BID MARCOS Administration Sodium Chloride 10 ml 12/19/21 18:04 Sodium Chloride 0.9% 10 Ml Flush Syringe IV PRN PRN LINE FLUSH Trazodone HCl 50 mg 12/21/21 22:00 12/22/21 21:35 Trazodone 50 Mg Tab PO 50 mg QHS MARCOS Administration Nutrition/Malnutrition Assess - Dietary Evaluation Nutrition/Malnutrition Findings: Nutrition Notes Start: 12/21/21 11:31 Freq: Status: Active Protocol: Document 12/21/21 11:32 MARCELLO (Rec: 12/21/21 11:37 [facility] [email or web address]) Nutrition Notes 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 PMHx includes cocaine and EtOH dependence. Sitter at bedside. Burn Absent Trauma Absent Minimum of two criteria No #1 Nutrition Diagnosis Inadequate oral intake Etiology depression, suicide attempt As Evidenced by Signs and Symptoms pt NPO at this time Is patient on ventilator? No Is Patient Ambulatory and/or Out of Bed No [facility] 1705.860 Calculation Used for Recommendations [place]-St Jeor Additional Notes Pro needs 0.8-1g/k-63g/ day Fluid needs 1ml/kcal Nutrition Intervention Change Diet Order: Advance diet when medically feasible Goal #1 Diet advancement to meet nutrient needs Anticipated Discharge Needs: None identified at this time Follow-Up By: 12/24/21 Additional Comments F/U: diet advancement, wt assessment
--- NOTE | 2021-12-23 11:23 | Gastroenterology Progress Note ---
Assessment and Plan 1. Acute liver injury 2/2 tylenol overdose - INR and liver enzymes improving. mentation remains normal. monitor labs, NAC per primary/poison control reccs, okay for diet from gi stand point. will sign off, please call as needed or with changes in clinical course. Subjective Date of service: 12/23/21 Principal diagnosis: Tylenol overdose, severe transaminitis Interval history: pt feels well, requesting to eat, no new gi complaints/symptoms Objective - Constitutional Vitals: Temp Pulse Resp BP Pulse Ox 97.4 F L 65 16 133/74 95 12/23/21 09:46 12/23/21 07:00 12/23/21 07:07 12/23/21 07:00 12/23/21 07:00 General appearance: no acute distress - Respiratory Respiratory effort: normal Respiratory: bilateral: CTA - Cardiovascular Rhythm: regular Heart Sounds: Present: S1 & S2 - Gastrointestinal General gastrointestinal: Present: soft, non-tender, non-distended - Labs CBC & Chem 7: 12/21/21 04:48 12/21/21 04:48 Labs: Laboratory Results - last 24 hr 12/22/21 12/22/21 12/22/21 23:08 23:09 23:09 PT 17.7 H INR 1.30 H Total Bilirubin Direct Bilirubin Indirect Bilirubin AST 3694 H ALT 7048 H Alkaline Phosphatase Total Protein Albumin Albumin/Globulin Ratio 12/22/21 12/23/21 12/23/21 Unknown 08:31 08:31 PT 15.9 H INR 1.14 H Total Bilirubin 2.20 H Direct Bilirubin 1.1 H Indirect Bilirubin 1.1 AST 7676 H 2366 H ALT 9756 H 6368 H Alkaline Phosphatase 117 Total Protein 4.6 L Albumin 3.3 L Albumin/Globulin Ratio 2.5
[2021-12-23 14:34] LABS: INR 1.11 (0.87-1.13)
[2021-12-23 14:55] LABS: Alanine Aminotransferase 5865 units/L (7-56)
[2021-12-23] MEDS: ACETADOTE IV SCH (16:12)
[2021-12-23] MEDS: DEXTROSE 5% IV SCH (16:12)
[2021-12-23] MEDS: WATER IV SCH (16:12)
[2021-12-23] MEDS: traZODone 50 MG TAB PO SCH (21:17)
[2021-12-24 05:36] LABS: INR 1.03 (0.87-1.13)
[2021-12-24 05:47] LABS: Bilirubin,Direct 0.7 mg/dL (0-0.2)
[2021-12-24] MEDS: DEXTROSE 5% IV SCH ×2 (07:50→23:55)
[2021-12-24] MEDS: WATER IV SCH ×2 (07:50→23:55)
[2021-12-24] MEDS: SODIUM CHLORIDE 0.9% 1000 ML 1,000 ML IV SCH (07:50)
[2021-12-24] MEDS: ACETADOTE IV SCH ×2 (07:50→23:55)
--- NOTE | 2021-12-24 07:53 | Progress Note ---
Assessment and Plan Assessment and plan: HPI: 56 YO Male with MDD, Schizophrenia, PSA, Cocaine Dependence, OA, Nicotine Dependence, ETOH Dependence presents to ED for evaluation. Patient reports "I was trying to kill myself". Patient states that he has been feeling depressed over the past several days and subsequently began drinking alcohol at 1 AM and ingested crack cocaine. Patient states that he subsequently became distraught due to his relapse and at approximately 6 AM the patient ingested approximately 25-30 acetaminophen 500 mg tablets and a dose of diphenhydramine 25 mg and attempt to take his own life. EMS was notified and upon arrival the patient was found to be in distress and subsequently transported to [facility] for further care and evaluation of the aforementioned symptoms. The patient was seen and evaluated in the emergency department. All lab and imaging studies reviewed. Poison control notified. Patient treated with Acetadote as per poison control recommendations and admitted to [facility]. Patient is lethargic but arousable at the time my evaluation and has a positive gag reflex and is able protect his airway without difficulty. No reports of fever, chills, chest pain, palpitation, productive cough, skin rash, recent contact, trauma, known exposure to COVID-19. No prior admission for review. No medication listed at time of admission for reconciliation. Advanced care planning conducted in ED. 1013 placed in the emergency department. Mental health team consulted in ED. Hospital Course 12/20/2021 Tylenol overdose Patient symptomatically better Worsening transaminitis AST is worsened from 234to 717 ALT is worsened from 216 to 649 Needs more antidote per poison control APAP level: 5.0 now, down from 52.2 on 12/19. 12/21: AOx4 on encounter. Remain comfortably no acute complaints AST: 16792, ALT 24871, INR: 1.67--> 2.58, hepatic indices to tracked BID US liver pending, may order CTAP if further visualization of hepobiliary tree needed. Continues to get N-acetylcysteine IV per direction of poison control hepatitis panel pending. Continue supportive care. GI consultation, D/w Dr. Stevie Machado. 0 of [facility] Criteria met for Liver transplant referral. Lacks payer sour ce, homeless, suicide attempt so not a candidate for liver transplantation. 12/22: INR improved to 1.58, PT: 20.8 Transaminases appear to have plateaued. Currently downtrending AST: 7K, ALT 10K, Total bili 2.1, Direct bili: 0.7. D/w Dr. Stevie Machado IV NAC infusing, continuation as per poison control. Continue to monitor liver indices q12hr. Avoid hepatotoxic agents Psych recommendations noted, continuation of 1013, patient initiated on prozac and trazadone, will need inpatient psych placement. 12/23: Transaminases downtrending, hepatic indices have demonstrated improvement. IV NAC continues to be infusing we will continue as per direction of poison control. Will await for AST, ALT, INR to normalize. Patient will need inpatient psychiatry placement once medically clear. 12/24: hepatic panel noted, AST, ALT, INR continue to normalize. On IV NAC as per poison control protocol. Patient is stable for floor transfer. Assessment and Plan: (1) Intentional acetaminophen overdose Status: Acute Qualifiers: Encounter type: initial encounter Qualified Code(s): T39.1X2A - Poisoning by 4-Aminophenol derivatives, intentional self-harm, initial encounter Plan to address problem: Elevated APAP level on admission. Poison control initial recommendations: RAMOS consulted at poison control. agree with Acetadote treatment based on unclear time of ingestion and single ingestion greater than 150 mg/kg. Recommends 2 hours prior to completion of the final infusion of Acetadote (third bag) recommends repeat AST, ALT, Tylenol, and INR to evaluate for the following parameters AST< 100 ALT < 100 INR < 1.5 tylenol < 10 If the results are greater than the parameters provided above (check 2 hours before completion of the final 16-hour infusion of Acetadote) then you need to repeat another 16-hour infusion of Acetadote. May call poison control for further clarification as needed Also recommend monitoring for anticholinergic poisoning given Benadryl overdose Continue acetylcysteine IV remains in IMCU Will continue to follow poison control guidance Gi/hepatology following Improvement in hepatic markers (pt/inr, bili, transaminases), continue to monitor q12hr (2) Suicide attempt Status: Acute Plan to address problem: 1013 placed in the emergency department, mental health consult placed in the emergency department. Prozac Trazadone psychiatry following, recommend inpatient psych (3) Cocaine dependence Status: Acute Plan to address problem: Supportive care, IV fluid resuscitation therapy, +15 min behavioral health counseling on cocaine substance abuse, detrimental effect on overall health, and benefits of cessation. (4) Alcohol dependence Status: Acute Plan to address problem: Thiamine, folic acid, multivitamin, CIWA protocol. (5) DVT prophylaxis Status: Acute Plan to address problem: SCD to bilateral lower extremities while in bed (6) Advance care planning Status: Acute Plan to address problem: Disease education data, care plan discussed, diagnoses discussed, prognosis discussed, patient is full code, +30 minutes. (7) Preventative health care Status: Acute Plan to address problem: Patient counseled regarding management of life stressors, outpatient drug dependence follow-up, outpatient psychiatric follow-up. +30 minutes. The high probability of a clinically significant, sudden or life threatening deterioration of the [hepatic, heme] system(s) required my full and direct attention, intervention and personal management. The aggregate critical care time was [60] minutes. This time is in addition to time spent performing reported procedures but includes the following: [x] Data Review and interpretation [x] Patient assessment and monitoring of vital signs [x] Documentation [x] Medication orders and management History Interval history: No acute complaints. Hospitalist Physical - Physical exam Narrative exam: Physical Exam: VITAL SIGNS: Reviewed. GENERAL: The patient appears normally developed, Vital signs as documented. Descheveled gentleman, older than stated age. HEAD: No signs of head trauma. EYES: Pupils are equal. Extraocular motions intact. EARS: Hearing grossly intact. MOUTH: Oropharynx is normal. NECK: No adenopathy, no JVD. CHEST: Chest with clear breath sounds bilaterally. No wheezes, rales, or rhonchi. CARDIAC: Regular rate and rhythm. S1 and S2, without murmurs, gallops, or rubs. VASCULAR: No Edema. Peripheral pulses normal and equal in all extremities. ABDOMEN: Soft, non tender and non distended. No rebound or guarding, and no masses palpated. Bowel Sounds normal. MUSCULOSKELETAL: Good range of motion of all major joints. Extremities without clubbing, cyanosis or edema. NEUROLOGIC EXAM: Alert and oriented x 4. no focal sensory or strength deficits. PSYCHIATRIC: Mood normal. SKIN: detail exam as documented in skin assessment - Constitutional Vitals: Temp Pulse Resp BP Pulse Ox 98.4 F 61 15 118/72 96 12/24/21 04:00 12/24/21 06:00 12/24/21 06:00 12/24/21 06:00 12/24/21 06:00 General appearance: Present: mild distress Results - Labs CBC & Chem 7: 12/21/21 04:48 12/21/21 04:48 Labs: Laboratory Last Values WBC 7.2 K/mm3 (4.5-11.0) 12/21/21 04:48 RBC 4.64 M/mm3 (3.65-5.03) 12/21/21 04:48 Hgb 14.0 gm/dl (11.8-15.2) 12/21/21 04:48 Hct 41.8 % (35.5-45.6) 12/21/21 04:48 MCV 90 fl (84-94) 12/21/21 04:48 MCH 30 pg (28-32) 12/21/21 04:48 MCHC 34 % (32-34) 12/21/21 04:48 RDW 12.7 % (13.2-15.2) L 12/21/21 04:48 Plt Count 182 K/mm3 (140-440) 12/21/21 04:48 Lymph % (Auto) 7.7 % (13.4-35.0) L 12/21/21 04:48 [place] % (Auto) 3.3 % (0.0-7.3) 12/21/21 04:48 Eos % (Auto) 0.2 % (0.0-4.3) 12/21/21 04:48 Baso % (Auto) 1.8 % (0.0-1.8) 12/21/21 04:48 Lymph # (Auto) 0.6 K/mm3 (1.2-5.4) L 12/21/21 04:48 [place] # (Auto) 0.2 K/mm3 (0.0-0.8) 12/21/21 04:48 Eos # (Auto) 0.0 K/mm3 (0.0-0.4) 12/21/21 04:48 Baso # (Auto) 0.1 K/mm3 (0.0-0.1) 12/21/21 04:48 Seg Neutrophils % 87.0 % (40.0-70.0) H 12/21/21 04:48 Seg Neutrophils # 6.3 K/mm3 (1.8-7.7) 12/21/21 04:48 PT 14.6 Sec. (12.2-14.9) 12/24/21 05:04 INR 1.03 (0.87-1.13) 12/24/21 05:04 APTT 31.4 Sec. (24.2-36.6) 12/19/21 Unknown Sodium 136 mmol/L (137-145) L 12/21/21 04:48 Potassium 4.3 mmol/L (3.6-5.0) 12/21/21 04:48 Chloride 101.0 mmol/L (98-107) 12/21/21 04:48 Carbon Dioxide 21 mmol/L (22-30) L 12/21/21 04:48 Anion Gap 18 mmol/L 12/21/21 04:48 BUN 10 mg/dL (9-20) 12/21/21 04:48 Creatinine 0.7 mg/dL (0.8-1.3) L 12/21/21 04:48 Estimated GFR > 60 ml/min 12/21/21 04:48 BUN/Creatinine Ratio 14 % 12/21/21 04:48 Glucose 104 mg/dL (75-100) H 12/21/21 04:48 Calcium 8.1 mg/dL (8.4-10.2) L 12/21/21 04:48 Magnesium 1.80 mg/dL (1.7-2.3) 12/19/21 Unknown Total Bilirubin 1.20 mg/dL (0.1-1.2) 12/24/21 05:04 Direct Bilirubin 0.7 mg/dL (0-0.2) H 12/24/21 05:04 Indirect Bilirubin 0.5 mg/dL 12/24/21 05:04 AST 895 units/L (5-40) H 12/24/21 05:04 ALT 4299 units/L (7-56) H 12/24/21 05:04 Alkaline Phosphatase 140 units/L (35-129) H 12/24/21 05:04 Total Creatine Kinase 119 units/L (55-170) 12/19/21 Unknown Total Protein 4.3 g/dL (6.3-8.2) L 12/24/21 05:04 Albumin 3.0 g/dL (3.9-5) L 12/24/21 05:04 Albumin/Globulin Ratio 2.3 % 12/24/21 05:04 Urine Color Yellow (Yellow) 12/19/21 Unknown Urine Turbidity Clear (Clear) 12/19/21 Unknown Urine pH 5.0 (5.0-7.0) 12/19/21 Unknown Ur Specific [place] 1.028 (1.003-1.030) 12/19/21 Unknown Urine Protein <15 mg/dl mg/dL (Negative) 12/19/21 Unknown Urine Glucose (UA) Neg mg/dL (Negative) 12/19/21 Unknown Urine Ketones 20 mg/dL (Negative) 12/19/21 Unknown Urine Blood Neg (Negative) 12/19/21 Unknown Urine Nitrite Neg (Negative) 12/19/21 Unknown Urine Bilirubin Neg (Negative) 12/19/21 Unknown Urine Urobilinogen 2.0 mg/dL (<2.0) 12/19/21 Unknown Ur Leukocyte Esterase Neg (Negative) 12/19/21 Unknown Urine WBC (Auto) 2.0 /HPF (0.0-6.0) 12/19/21 Unknown Urine RBC (Auto) 0.0 /HPF (0.0-6.0) 12/19/21 Unknown Urine Mucus Few /HPF 12/19/21 Unknown Salicylates < 0.3 mg/dL (2.8-20.0) L 12/19/21 Unknown Urine Opiates Screen Negative 12/19/21 Unknown Urine Methadone Screen Negative 12/19/21 Unknown Acetaminophen 5.0 ug/mL (10.0-30.0) L 12/20/21 15:08 Ur Barbiturates Screen Negative 12/19/21 Unknown Ur Phencyclidine Scrn Negative 12/19/21 Unknown Ur Amphetamines Screen Negative 12/19/21 Unknown U Benzodiazepines Scrn Negative 12/19/21 Unknown Urine Cocaine Screen Positive 12/19/21 Unknown U Marijuana (THC) Screen Negative 12/19/21 Unknown Drugs of Abuse Note Disclamer 12/19/21 Unknown Plasma/Serum Alcohol < 0.01 % (0-0.07) 12/19/21 Unknown Leger/IV: Voiding Method Urinal Active Medications - Current Medications Current Medications: Generic Name Dose Route Start Last Admin Trade Name Freq PRN Reason Stop Dose Admin Albuterol 2.5 mg 12/19/21 18:04 Albuterol 2.5 Mg/3 Ml Nebu IH Q3HRT PRN Shortness Of Breath Fluoxetine HCl 20 mg 12/21/21 12:00 12/23/21 09:58 Fluoxetine 20 Mg Cap PO 20 mg QDAY MARCOS Administration Sodium Chloride 1,000 mls @ 125 mls/hr 12/19/21 18:45 12/23/21 23:59 Nacl 0.9% 1000 Ml IV 125 mls/hr DIRECT MARCOS Administration Acetylcysteine 6,340 mg/ 1,031.7 mls @ 62.5 mls/hr 12/22/21 23:15 12/23/21 1 6:12 Dextrose IV 62.5 mls/hr DIRECT MARCOS Administration Ibuprofen 600 mg 12/19/21 18:04 12/23/21 21:17 Ibuprofen 600 Mg Tab PO 600 mg Q6H PRN Administration Pain, Mild (1-3) Morphine Sulfate 2 mg 12/19/21 18:04 12/21/21 03:15 Morphine 2 Mg/1 Ml Inj IV 2 mg Q8H PRN Administration Pain, Moderate (4-6) Sodium Chloride 10 ml 12/19/21 22:00 12/23/21 21:20 Sodium Chloride 0.9% 10 Ml Flush Syringe IV 10 ml BID MARCOS Administration Sodium Chloride 10 ml 12/19/21 18:04 Sodium Chloride 0.9% 10 Ml Flush Syringe IV PRN PRN LINE FLUSH Trazodone HCl 50 mg 12/21/21 22:00 12/23/21 21:17 Trazodone 50 Mg Tab PO 50 mg QHS MARCOS Administration Nutrition/Malnutrition Assess - Dietary Evaluation Nutrition/Malnutrition Findings: Nutrition Notes Start: 12/21/21 11:31 Freq: Status: Active Protocol: Document 12/21/21 11:32 MARCELLO (Rec: 12/21/21 11:37 COALL [id number]) Nutrition Notes Need for Assessment generated from: mold maintenance technician,MST Initial or Follow up Assessment Other Pertinent Diagnosis Intentional acetaminophen OD, Suicide attempt, MDD, Schizophrenia Current Diet NPO Labs/Tests Na 136 tBili 2.2 AST 8459 ALT 6943 Pertinent Medications NS at 125ml/hr Height 5 ft 7 in Weight 63.4 kg [place] Body Weight (kg) 67.27 BMI 21.9 Weight Status Appropriate Subjective/Other Information Pt screened for malnutrition risk. PMHx includes cocaine and EtOH dependence. Sitter at bedside. Burn Absent Trauma Absent Minimum of two criteria No #1 Nutrition Diagnosis Inadequate oral intake Etiology depression, suicide attempt As Evidenced by Signs and Symptoms pt NPO at this time Is patient on ventilator? No Is Patient Ambulatory and/or Out of Bed No REE-([facility]-confined to bed) 9263.030 Calculation Used for Recommendations [facility] Additional Notes Pro needs 0.8-1g/k-63g/ day Fluid needs 1ml/kcal Nutrition Intervention Change Diet Order: Advance diet when medically feasible Goal #1 Diet advancement to meet nutrient needs Anticipated Discharge Needs: None identified at this time Follow-Up By: 12/24/21 Additional Comments F/U: diet advancement, wt assessment
[2021-12-24 08:56] LABS: INR 1.03 (0.87-1.13)
[2021-12-24 09:19] LABS: Albumin 3.4 g/dL (3.9-5); Bilirubin,Direct 0.6 mg/dL (0-0.2)
[2021-12-24] MEDS: FLUoxetine 20 MG CAP PO SCH (10:45)
[2021-12-24] MEDS: IBUPROFEN 600 MG TAB PO PRN ×2 (10:45→21:32)
--- NOTE | 2021-12-24 12:32 | Progress Note ---
Subjective - Reason for Consult Consult date: 12/24/21 Reason for consult: OD - Chief Complaint Chief complaint: The patient was seen today. He presents with appropriate affect. He states he feels better. The patient denies any current suicidal/homicidal ideation and denies hallucinations. REVIEW OF SYSTEMS Constitutional: Negative for weight loss ENT: Negative for stridor Respiratory: Negative for cough or hemoptysis All other systems reviewed and are negative MENTAL STATUS EXAMINATION General Appearance and Behavior: Age appropriate, good hygiene, wearing appropriate clothes, calm and cooperative polite with questioning. Cooperation: engaged Psychomotor Behavior: Psychomotor normal Mood: Ok Affect and affective range: congruent with stated mood Thought Process: Goal directed Thought Content: Reality oriented Speech: Normal volume, Regular rate and rhythm, Suicidal Ideation: Denies Homicidal Ideation: Denies Hallucinations: Denies Delusions: None elicited Impulse Control: Normal Insight and Judgment: Limited Memory: Normal Attention: attentive Orientation: a/o x3 Diagnosis: Schizoaffective Disorder Treatment Plan TREATMENT PLAN Case management DC 1013 Continue Prozac 20mg po daily Continue Trazodone 50mg po QHS Continue home medications. Sitter: per primary Medical: per primary Disposition: Do not recommend acute psychiatric inpatient treatment. [employer] Education Teacher will provide patient with psychiatric outpatient resources. Will sign off. Thanks Medications and Allergies Mental Status Exam - Vital signs Last Vital Signs Temp 98 F 12/24/21 08:00 Pulse 72 12/24/21 10:00 Resp 20 12/24/21 10:00 BP 122/78 12/24/21 10:00 Pulse Ox 97 12/24/21 10:00
[2021-12-24 20:37] LABS: INR 1.01 (0.87-1.13)
[2021-12-24 20:48] LABS: Albumin 3.3 g/dL (3.9-5); Bilirubin,Direct 0.5 mg/dL (0-0.2)
[2021-12-24] MEDS: traZODone 50 MG TAB PO SCH (21:32)
[2021-12-25] MEDS: FLUoxetine 20 MG CAP PO SCH (09:44)
--- NOTE | 2021-12-25 13:36 | Progress Note ---
Assessment and Plan Assessment and plan: 56 YO Male with MDD, Schizophrenia, PSA, Cocaine Dependence, OA, Nicotine Dependence, ETOH Dependence presents to ED for evaluation. Patient reports "I was trying to kill myself". Patient states that he has been feeling depressed over the past several days and subsequently began drinking alcohol at 1 AM and ingested crack cocaine. Patient states that he subsequently became distraught due to his relapse and at approximately 6 AM the patient ingested approximately 25-30 acetaminophen 500 mg tablets and a dose of diphenhydramine 25 mg and attempt to take his own life. EMS was notified and upon arrival the patient was found to be in distress and subsequently transported to [facility] for further care and evaluation of the aforementioned symptoms. The patient was seen and evaluated in the emergency department. All lab and imaging studies reviewed. Poison control notified. Patient treated with Acetadote as per poison control recommendations and admitted to [facility]. Patient is lethargic but arousable at the time my evaluation and has a positive gag reflex and is able protect his airway without difficulty. No reports of fever, chills, chest pain, palpitation, productive cough, skin rash, recent contact, trauma, known exposure to COVID-19. No prior admission for review. No medication listed at time of admission for reconciliation. Advanced care planning conducted in ED. 1013 placed in the emergency department. Mental health team consulted in ED. Hospital Course 12/20/2021 Tylenol overdose Patient symptomatically better Worsening transaminitis AST is worsened from 234to 717 ALT is worsened from 216 to 649 Needs more antidote per poison control APAP level: 5.0 now, down from 52.2 on 12/19. 12/21: AOx4 on encounter. Remain comfortably no acute complaints AST: 29556, ALT 04684, INR: 1.67--> 2.58, hepatic indices to tracked BID US liver pending, may order CTAP if further visualization of hepobiliary tree needed. Continues to get N-acetylcysteine IV per direction of poison control hepatitis panel pending. Continue supportive care. GI consultation, D/w Dr. Stevie Machado. 0 of [facility] Criteria met for Liver transplant referral. Lacks payer source, homeless, suicide attempt so not a candidate for liver transplantation. 12/22: INR improved to 1.58, PT: 20.8 Transaminases appear to have plateaued. Currently downtrending AST: 7K, ALT 10K, Total bili 2.1, Direct bili: 0.7. D/w Dr. Stevie Machado IV NAC infusing, continuation as per poison control. Continue to monitor liver indices q12hr. Avoid hepatotoxic agents Psych recommendations noted, continuation of 1013, patient initiated on prozac and trazadone, will need inpatient psych placement. 12/23: Transaminases downtrending, hepatic indices have demonstrated improvement. IV NAC continues to be infusing we will continue as per direction of poison control. Will await for AST, ALT, INR to normalize. Patient will need inpatient psychiatry placement once medically clear. 12/24: hepatic panel noted, AST, ALT, INR continue to normalize. On IV NAC as per poison control protocol. Patient is stable for floor transfer. 12/25: Patient remained in the IMCU but we will transfer him this morning to the floor. His liver function is improving. Still not at baseline for discharge. Psych has discontinued 1013 and deemed him not a candidate for inpatient psych placement. Lifestyle modification counseling provided to the patient for 15 minutes. He verbalized understanding. We will continue Acetadote treatment and follow serial liver function test at this time. Assessment and Plan: (1) Intentional acetaminophen overdose Status: Acute Qualifiers: Encounter type: initial encounter Qualified Code(s): T39.1X2A - Poisoning by 4-Aminophenol derivatives, intentional self-harm, initial encounter Plan to address problem: Elevated APAP level on admission. Poison control initial recommendations: RAMOS consulted at poison control. agree with Acetadote treatment based on unclear time of ingestion and single ingestion greater than 150 mg/kg. Recommends 2 hours prior to completion of the final infusion of Acetadote (third bag) mara mmends repeat AST, ALT, Tylenol, and INR to evaluate for the following parameters AST< 100 ALT < 100 INR < 1.5 tylenol < 10 If the results are greater than the parameters provided above (check 2 hours before completion of the final 16-hour infusion of Acetadote) then you need to repeat another 16-hour infusion of Acetadote. May call poison control for further clarification as needed Also recommend monitoring for anticholinergic poisoning given Benadryl overdose Continue acetylcysteine IV remains in IMCU Will continue to follow poison control guidance Gi/hepatology following Improvement in hepatic markers (pt/inr, bili, transaminases), continue to monitor q12hr (2) Suicide attempt Status: Acute Plan to address problem: 1013 placed in the emergency department, mental health consult placed in the emergency department. Prozac Trazadone psychiatry following, recommend inpatient psych (3) Cocaine dependence Status: Acute Plan to address problem: Supportive care, IV fluid resuscitation therapy, +15 min behavioral health counseling on cocaine substance abuse, detrimental effect on overall health, and benefits of cessation. (4) Alcohol dependence Status: Acute Plan to address problem: Thiamine, folic acid, multivitamin, CIWA protocol. (5) DVT prophylaxis Status: Acute Plan to address problem: SCD to bilateral lower extremities while in bed (6) Advance care planning Status: Acute Plan to address problem: Disease education data, care plan discussed, diagnoses discussed, prognosis discussed, patient is full code, +30 minutes. (7) Preventative health care Status: Acute Plan to address problem: Patient counseled regarding management of life stressors, outpatient drug d ependence follow-up, outpatient psychiatric follow-up. +30 minutes. History Interval history: Patient seen and examined this morning tells me that he is no longer suicidal and that his mind frame is improving. He still does not perceive a way forward but states that this is not trying to hurt himself anymore. Hospitalist Physical - Physical exam Narrative exam: Physical Exam: VITAL SIGNS: Reviewed. GENERAL: The patient appears normally developed, Vital signs as documented. older than stated age. HEAD: No signs of head trauma. EYES: Pupils are equal. Extraocular motions intact. EARS: Hearing grossly intact. MOUTH: Oropharynx is normal. NECK: No adenopathy, no JVD. CHEST: Chest with clear breath sounds bilaterally. No wheezes, rales, or rhonchi. CARDIAC: Regular rate and rhythm. S1 and S2, without murmurs, gallops, or rubs. VASCULAR: No Edema. Peripheral pulses normal and equal in all extremities. ABDOMEN: Soft, non tender and non distended. No rebound or guarding, and no masses palpated. Bowel Sounds normal. MUSCULOSKELETAL: Good range of motion of all major joints. Extremities without clubbing, cyanosis or edema. NEUROLOGIC EXAM: Alert and oriented x 4. no focal sensory or strength deficits. PSYCHIATRIC: Mood normal. SKIN: detail exam as documented in skin assessment - Constitutional Vitals: Temp Pulse Resp BP Pulse Ox 97.8 F 66 16 129/81 97 12/25/21 12:00 12/25/21 12:00 12/25/21 12:00 12/25/21 12:00 12/25/21 12:00 General appearance: Present: mild distress Results - Labs CBC & Chem 7: 12/21/21 04:48 12/21/21 04:48 Labs: Laboratory Last Values WBC 7.2 K/mm3 (4.5-11.0) 12/21/21 04:48 RBC 4.64 M/mm3 (3.65-5.03) 12/21/21 04:48 Hgb 14.0 gm/dl (11.8-15.2) 12/21/21 04:48 Hct 41.8 % (35.5-45.6) 12/21/21 04:48 MCV 90 fl (84-94) 12/21/21 04:48 MCH 30 pg (28-32) 12/21/21 04:48 MCHC 34 % (32-34) 12/21/21 04:48 RDW 12.7 % (13.2-15.2) L 12/21/21 04:48 Plt Count 182 K/mm3 (140-440) 12/21/21 04:48 Lymph % (Auto) 7.7 % (13.4-35.0) L 12/21/21 04:48 [place] % (Auto) 3.3 % (0.0-7.3) 12/21/21 04:48 Eos % (Auto) 0.2 % (0.0-4.3) 12/21/21 04:48 Baso % (Auto) 1.8 % (0.0-1.8) 12/21/21 04:48 Lymph # (Auto) 0.6 K/mm3 (1.2-5.4) L 12/21/21 04:48 [place] # (Auto) 0.2 K/mm3 (0.0-0.8) 12/21/21 04:48 Eos # (Auto) 0.0 K/mm3 (0.0-0.4) 12/21/21 04:48 Baso # (Auto) 0.1 K/mm3 (0.0-0.1) 12/21/21 04:48 Seg Neutrophils % 87.0 % (40.0-70.0) H 12/21/21 04:48 Seg Neutrophils # 6.3 K/mm3 (1.8-7.7) 12/21/21 04:48 PT 14.4 Sec. (12.2-14.9) 12/24/21 20:09 INR 1.01 (0.87-1.13) 12/24/21 20:09 APTT 31.4 Sec. (24.2-36.6) 12/19/21 Unknown Sodium 136 mmol/L (137-145) L 12/21/21 04:48 Potassium 4.3 mmol/L (3.6-5.0) 12/21/21 04:48 Chloride 101.0 mmol/L (98-107) 12/21/21 04:48 Carbon Dioxide 21 mmol/L (22-30) L 12/21/21 04:48 Anion Gap 18 mmol/L 12/21/21 04:48 BUN 10 mg/dL (9-20) 12/21/21 04:48 Creatinine 0.7 mg/dL (0.8-1.3) L 12/21/21 04:48 Estimated GFR > 60 ml/min 12/21/21 04:48 BUN/Creatinine Ratio 14 % 12/21/21 04:48 Glucose 104 mg/dL (75-100) H 12/21/21 04:48 Calcium 8.1 mg/dL (8.4-10.2) L 12/21/21 04:48 Magnesium 1.80 mg/dL (1.7-2.3) 12/19/21 Unknown Total Bilirubin 0.80 mg/dL (0.1-1.2) 12/24/21 20:09 Direct Bilirubin 0.5 mg/dL (0-0.2) H 12/24/21 20:09 Indirect Bilirubin 0.3 mg/dL 12/24/21 20:09 AST 568 units/L (5-40) H 12/24/21 20:09 ALT 3351 units/L (7-56) H 12/24/21 20:09 Alkaline Phosphatase 157 units/L (35-129) H 12/24/21 20:09 Total Creatine Kinase 119 units/L (55-170) 12/19/21 Unknown Total Protein 4.5 g/dL (6.3-8.2) L 12/24/21 20:09 Albumin 3.3 g/dL (3.9-5) L 12/24/21 20:09 Albumin/Globulin Ratio 2.8 % 12/24/21 20:09 Urine Color Yellow (Yellow) 12/19/21 Unknown Urine Turbidity Clear (Clear) 12/19/21 Unknown Urine pH 5.0 (5.0-7.0) 12/19/21 Unknown Ur Specific [place] 1.028 (1.003-1.030) 12/19/21 Unknown Urine Protein <15 mg/dl mg/dL (Negative) 12/19/21 Unknown Urine Glucose (UA) Neg mg/dL (Negative) 12/19/21 Unknown Urine Ketones 20 mg/dL (Negative) 12/19/21 Unknown Urine Blood Neg (Negative) 12/19/21 Unknown Urine Nitrite Neg (Negative) 12/19/21 Unknown Urine Bilirubin Neg (Negative) 12/19/21 Unknown Urine Urobilinogen 2.0 mg/dL (<2.0) 12/19/21 Unknown Ur Leukocyte Esterase Neg (Negative) 12/19/21 Unknown Urine WBC (Auto) 2.0 /HPF (0.0-6.0) 12/19/21 Unknown Urine RBC (Auto) 0.0 /HPF (0.0-6.0) 12/19/21 Unknown Urine Mucus Few /HPF 12/19/21 Unknown Salicylates < 0.3 mg/dL (2.8-20.0) L 12/19/21 Unknown Urine Opiates Screen Negative 12/19/21 Unknown Urine Methadone Screen Negative 12/19/21 Unknown Acetaminophen 5.0 ug/mL (10.0-30.0) L 12/20/21 15:08 Ur Barbiturates Screen Negative 12/19/21 Unknown Ur Phencyclidine Scrn Negative 12/19/21 Unknown Ur Amphetamines Screen Negative 12/19/21 Unknown U Benzodiazepines Scrn Negative 12/19/21 Unknown Urine Cocaine Screen Positive 12/19/21 Unknown U Marijuana (THC) Screen Negative 12/19/21 Unknown Drugs of Abuse Note Disclamer 12/19/21 Unknown Plasma/Serum Alcohol < 0.01 % (0-0.07) 12/19/21 Unknown [place]er/IV: Voiding Method Urinal Active Medications - Current Medications Current Medications: Generic Name Dose Route Start Last Admin Trade Name Freq PRN Reason Stop Dose Admin Albuterol 2.5 mg 12/19/21 18:04 Albuterol 2.5 Mg/3 Ml Nebu IH Q3HRT PRN Shortness Of Breath Fluoxetine HCl 20 mg 12/21/21 12:00 12/25/21 09:44 Fluoxetine 20 Mg Cap PO 20 mg QDAY MARCOS Administration Acetylcysteine 6,340 mg/ 1,031.7 mls @ 62.5 mls/hr 12/22/21 23:15 12/24/21 23:55 Dextrose IV 62.5 mls/hr DIRECT MARCOS Administration Ibuprofen 600 mg 12/19/21 18:04 12/24/21 21:32 Ibuprofen 600 Mg Tab PO 600 mg Q6H PRN Administration Pain, Mild (1-3) Morphine Sulfate 2 mg 12/19/21 18:04 12/21/21 03:15 Morphine 2 Mg/1 Ml Inj IV 2 mg Q8H PRN Administration Pain, Moderate (4-6) Sodium Chloride 10 ml 12/19/21 22:00 12/25/21 09:44 Sodium Chloride 0.9% 10 Ml Flush Syringe IV 10 ml BID MARCOS Administration Sodium Chloride 10 ml 12/19/21 18:04 Sodium Chloride 0.9% 10 Ml Flush Syringe IV PRN PRN LINE FLUSH Trazodone HCl 50 mg 12/21/21 22:00 12/24/21 21:32 Trazodone 50 Mg Tab PO 50 mg QHS MARCOS Administration Nutrition/Malnutrition Assess - Dietary Evaluation Nutrition/Malnutrition Findings: Nutrition Notes Start: 12/21/21 11:31 Freq: Status: Active Protocol: Document 12/24/21 16:36 FERNANDO (Rec: 12/24/21 16:55 FERNANDO [email or web address]) Nutrition Notes Initial or Follow up Brief Note Other Pertinent Diagnosis Schizo-Affective Disorder, Acetaminophen OD, Cocaine & EtOH Dependence... Current Diet Regular Diet (since L 12/23). Labs/Tests 12/24: T Bili 1.2, AST 912, ALT 4341. Pertinent Medications 12/24: Nutriutionally unremarkable. Height 5 ft 7 in Weight 63.4 kg [place] Body Weight (kg) 67.27 BMI 21.9 Weight change and time frame No body weight change reported in 3 days. Weight Status Appropriate Subjective/Other Information RD consult for routine F/U on Dietary Advancement. Pt's PO intake of meals has been Good (100%), according to ADL notes. Pt is on Room Air, O2 saturation @ 97%, according to Physical Assessment History notes. Percent of energy/protein needs met: Prescribed Regular Diet provides for energy/protein needs (2,289 Kcal/89 g) during LOS. #1 Nutrition Diagnosis Inadequate oral intake Comments: Pt's PO intake of meals has been Good (100%), according to ADL notes. Diagnosis Progress(for reassessment Resolved documentation) Is patient on ventilator? No Is Patient Ambulatory and/or Out of Bed Yes REE-([place]-St. Jeor-ambulatory/OOB) [ 1842.919 [id number]] Kcal/Kg value to use for calculation 27 Approximate Energy Requirements Using 1712 kcal/Kg Calculation Used for Recommendations Kcal/kg Additional Notes Protein: 0.8-1 g/Kg ABW; 51-63 g/day. Fluids: 1 ml/Kcal, or as per MD. Nutrition Intervention Change Diet Order: Continue Regular Diet. Goal #1 Maintain body weight within +/ -3% of admission body weight during LOS. Revisit per MD consult or patient Sign Off request: Additional Comments Continue monitoring food tolerance, %PO intake of meals , and BM.
[2021-12-25 15:38] LABS: Albumin 3.4 g/dL (3.9-5); Bilirubin,Direct 0.4 mg/dL (0-0.2)
[2021-12-25 15:54] LABS: INR 0.84 (0.87-1.13)
[2021-12-25] MEDS: DEXTROSE 5% IV SCH (18:35)
[2021-12-25] MEDS: ACETADOTE IV SCH (18:35)
[2021-12-25] MEDS: WATER IV SCH (18:35)
[2021-12-25] MEDS: traZODone 50 MG TAB PO SCH (21:42)
[2021-12-25] MEDS: IBUPROFEN 600 MG TAB PO PRN (21:46)
[2021-12-26 05:37] LABS: Hematocrit 37.2 % (35.5-45.6); Hemoglobin 12.5 gm/dl (11.8-15.2); Mean Corpuscular HGB Conc 34 % (32-34); Mean Corpuscular Volume 90 fl (84-94); Platelet Count 231 K/mm3 (140-440); Red Blood Count 4.12 M/mm3 (3.65-5.03); Red Cell Distribution Width 13.2 % (13.2-15.2)
[2021-12-26 05:57] LABS: Albumin 3.3 g/dL (3.9-5); Blood Urea Nitrogen 8 mg/dL (9-20); Calcium 8.4 mg/dL (8.4-10.2); Hemolysis Index 4
[2021-12-26 06:07] LABS: BUN/Creatinine Ratio 13
[2021-12-26 06:21] LABS: Alanine Aminotransferase 2201 units/L (7-56)
[2021-12-26] MEDS: FLUoxetine 20 MG CAP PO SCH (09:35)
--- NOTE | 2021-12-26 12:06 | Progress Note ---
Assessment and Plan Assessment and plan: 56 YO Male with MDD, Schizophrenia, PSA, Cocaine Dependence, OA, Nicotine Dependence, ETOH Dependence presents to ED for evaluation. Patient reports "I was trying to kill myself". Patient states that he has been feeling depressed over the past several days and subsequently began drinking alcohol at 1 AM and ingested crack cocaine. Patient states that he subsequently became distraught due to his relapse and at approximately 6 AM the patient ingested approximately 25-30 acetaminophen 500 mg tablets and a dose of diphenhydramine 25 mg and attempt to take his own life. EMS was notified and upon arrival the patient was found to be in distress and subsequently transported to [facility] for further care and evaluation of the aforementioned symptoms. The patient was seen and evaluated in the emergency department. All lab and imaging studies reviewed. Poison control notified. Patient treated with Acetadote as per poison control recommendations and admitted to [facility]. Patient is lethargic but arousable at the time my evaluation and has a positive gag reflex and is able protect his airway without difficulty. No reports of fever, chills, chest pain, palpitation, productive cough, skin rash, recent contact, trauma, known exposure to COVID-19. No prior admission for review. No medication listed at time of admission for reconciliation. Advanced care planning conducted in ED. 1013 placed in the emergency department. Mental health team consulted in ED. Hospital Course 12/20/2021 Tylenol overdose Patient symptomatically better Worsening transaminitis AST is worsened from 234to 717 ALT is worsened from 216 to 649 Needs more antidote per poison control APAP level: 5.0 now, down from 52.2 on 12/19. 12/21: AOx4 on encounter. Remain comfortably no acute complaints AST: 30243, ALT 94953, INR: 1.67--> 2.58, hepatic indices to tracked BID US liver pending, may order CTAP if further visualization of hepobiliary tree needed. Continues to get N-acetylcysteine IV per direction of poison control hepatitis panel pending. Continue supportive care. GI consultation, D/w Dr. Setvie Machado. 0 of [facility] Criteria met for Liver transplant referral. Lacks payer source, homeless, suicide attempt so not a candidate for liver transplantation. 12/22: INR improved to 1.58, PT: 20.8 Transaminases appear to have plateaued. Currently downtrending AST: 7K, ALT 10K, Total bili 2.1, Direct bili: 0.7. D/w Dr. Stevie Machado IV NAC infusing, continuation as per poison control. Continue to monitor liver indices q12hr. Avoid hepatotoxic agents Psych recommendations noted, continuation of 1013, patient initiated on prozac and trazadone, will need inpatient psych placement. 12/23: Transaminases downtrending, hepatic indices have demonstrated improvement. IV NAC continues to be infusing we will continue as per direction of poison control. Will await for AST, ALT, INR to normalize. Patient will need inpatient psychiatry placement once medically clear. 12/24: hepatic panel noted, AST, ALT, INR continue to normalize. On IV NAC as per poison control protocol. Patient is stable for floor transfer. 12/25: Patient remained in the IMCU but we will transfer him this morning to the floor. His liver function is improving. Still not at baseline for discharge. Psych has discontinued 1013 and deemed him not a candidate for inpatient psych placement. Lifestyle modification counseling provided to the patient for 15 minutes. He verbalized understanding. We will continue Acetadote treatment and follow serial liver function test at this time. 12/26: Clinically improving LFTs improving. Continue with Acetadote this morning Poison control advised to hold treatment after this bag is completed and obtain repeat LFT and will obtain further advice from them. Otherwise clinically stable no abdominal pain at this time. Assessment and Plan: (1) Intentional acetaminophen overdose Status: Acute Qualifiers: Encounter type: initial encounter Qualified Code(s): T39.1X2A - Poisoning by 4-Aminophenol derivatives, intentional self-harm, initial encounter Plan to address problem: Elevated APAP level on admission. Poison control initial recommendations: RAMOS consulted at poison control. agree with Acetadote treatment based on unclear time of ingestion and single ingestion greater than 150 mg/kg. Recommends 2 ho urs prior to completion of the final infusion of Acetadote (third bag) recommends repeat AST, ALT, Tylenol, and INR to evaluate for the following parameters AST< 100 ALT < 100 INR < 1.5 tylenol < 10 If the results are greater than the parameters provided above (check 2 hours before completion of the final 16-hour infusion of Acetadote) then you need to repeat another 16-hour infusion of Acetadote. May call poison control for further clarification as needed Also recommend monitoring for anticholinergic poisoning given Benadryl overdose Continue acetylcysteine IV remains in IMCU Will continue to follow poison control guidance Gi/hepatology following Improvement in hepatic markers (pt/inr, bili, transaminases), continue to monitor q12hr (2) Suicide attempt Status: Acute Plan to address problem: 1013 placed in the emergency department, mental health consult placed in the emergency department. Prozac Trazadone psychiatry following, recommend inpatient psych (3) Cocaine dependence Status: Acute Plan to address problem: Supportive care, IV fluid resuscitation therapy, +15 min behavioral health counseling on cocaine substance abuse, detrimental eff ect on overall health, and benefits of cessation. (4) Alcohol dependence Status: Acute Plan to address problem: Thiamine, folic acid, multivitamin, CIWA protocol. (5) acute hepatic failure secondary to acetaminophen overdose (6) DVT prophylaxis Status: Acute Plan to address problem: SCD to bilateral lower extremities while in bed (7) Advance care planning Status: Acute Plan to address problem: Disease education data, care plan discussed, diagnoses discussed, prognosis discussed, patient is full code, +30 minutes. (8) Preventative health care Status: Acute Plan to address problem: Patient counseled regarding management of life stressors, outpatient drug dependence follow-up, outpatient psychiatric follow-up. +30 minutes. History Interval history: Patient seen and examined this morning he is eating this morning much more positive outlook than yesterday. Very appreciative of the care he is receiving. Hospitalist Physical - Physical exam Narrative exam: Physical Exam: VITAL SIGNS: Reviewed. GENERAL: The patient appears normally developed, Vital signs as documented. older than stated age. HEAD: No signs of head trauma. EYES: Pupils are equal. Extraocular motions intact. EARS: Hearing grossly intact. MOUTH: Oropharynx is normal. NECK: No adenopathy, no JVD. CHEST: Chest with clear breath sounds bilaterally. No wheezes, rales, or rhonchi. CARDIAC: Regular rate and rhythm. S1 and S2, without murmurs, gallops, or rubs. VASCULAR: No Edema. Peripheral pulses normal and equal in all extremities. ABDOMEN: Soft, non tender and non distended. No rebound or guarding, and no masses palpated. Bowel Sounds normal. MUSCULOSKELETAL: Good range of motion of all major joints. Extremities without clubbing, cyanosis or edema. NEUROLOGIC EXAM: Alert and oriented x 4. no focal sensory or strength deficits. Follows commands, normal speech PSYCHIATRIC: Mood normal. SKIN: detail exam as documented in skin assessment - Constitutional Vitals: Temp Pulse Resp BP Pulse Ox 98.2 F 70 20 123/71 96 12/26/21 11:43 12/26/21 11:43 12/26/21 11:43 12/26/21 11:43 12/26/21 11:43 General appearance: Present: mild distress Results - Labs CBC & Chem 7: 12/26/21 05:07 12/26/21 05:07 Labs: Laboratory Last Values WBC 8.3 K/mm3 (4.5-11.0) 12/26/21 05:07 RBC 4.12 M/mm3 (3.65-5.03) 12/26/21 05:07 Hgb 12.5 gm/dl (11.8-15.2) 12/26/21 05:07 Hct 37.2 % (35.5-45.6) 12/26/21 05:07 MCV 90 fl (84-94) 12/26/21 05:07 MCH 30 pg (28-32) 12/26/21 05:07 MCHC 34 % (32-34) 12/26/21 05:07 RDW 13.2 % (13.2-15.2) 12/26/21 05:07 Plt Count 231 K/mm3 (140-440) 12/26/21 05:07 Lymph % (Auto) 7.7 % (13.4-35.0) L 12/21/21 04:48 [place] % (Auto) 3.3 % (0.0-7.3) 12/21/21 04:48 Eos % (Auto) 0.2 % (0.0-4.3) 12/21/21 04:48 Baso % (Auto) 1.8 % (0.0-1.8) 12/21/21 04:48 Lymph # (Auto) 0.6 K/mm3 (1.2-5.4) L 12/21/21 04:48 [place] # (Auto) 0.2 K/mm3 (0.0-0.8) 12/21/21 04:48 Eos # (Auto) 0.0 K/mm3 (0.0-0.4) 05/02/22 04:48 Baso # (Auto) 0.1 K/mm3 (0.0-0.1) 12/21/21 04:48 Seg Neutrophils % 87.0 % (40.0-70.0) H 12/21/21 04:48 Seg Neutrophils # 6.3 K/mm3 (1.8-7.7) 12/21/21 04:48 PT 12.4 Sec. (12.2-14.9) 12/25/21 14:00 INR 0.84 (0.87-1.13) L 12/25/21 14:00 APTT 31.4 Sec. (24.2-36.6) 12/19/21 Unknown Sodium 142 mmol/L (137-145) 12/26/21 05:07 Potassium 4.4 mmol/L (3.6-5.0) 12/26/21 05:07 Chloride 106.2 mmol/L (98-107) 12/26/21 05:07 Carbon Dioxide 27 mmol/L (22-30) 12/26/21 05:07 Anion Gap 13 mmol/L 12/26/21 05:07 BUN 8 mg/dL (9-20) L 12/26/21 05:07 Creatinine 0.6 mg/dL (0.8-1.3) L 12/26/21 05:07 Estimated GFR > 60 ml/min 12/26/21 05:07 BUN/Creatinine Ratio 13 % 12/26/21 05:07 Glucose 107 mg/dL (75-100) H 12/26/21 05:07 Calcium 8.4 mg/dL (8.4-10.2) 12/26/21 05:07 Magnesium 1.80 mg/dL (1.7-2.3) 12/19/21 Unknown Total Bilirubin 0.60 mg/dL (0.1-1.2) 12/26/21 05:07 Direct Bilirubin 0.4 mg/dL (0-0.2) H 12/25/21 14:00 Indirect Bilirubin 0.3 mg/dL 12/25/21 14:00 AST 237 units/L (5-40) H 12/26/21 05:07 ALT 2201 units/L (7-56) H 12/26/21 05:07 Alkaline Phosphatase 133 units/L (35-129) H 12/26/21 05:07 Total Creatine Kinase 119 units/L (55-170) 12/19/21 Unknown Total Protein 4.4 g/dL (6.3-8.2) L 12/26/21 05:07 Albumin 3.3 g/dL (3.9-5) L 12/26/21 05:07 Albumin/Globulin Ratio 3.0 % 12/26/21 05:07 Urine Color Yellow (Yellow) 12/19/21 Unknown Urine Turbidity Clear (Clear) 12/19/21 Unknown Urine pH 5.0 (5.0-7.0) 12/19/21 Unknown Ur Specific [place] 1.028 (1.003-1.030) 12/19/21 Unknown Urine Protein <15 mg/dl mg/dL (Negative) 12/19/21 Unknown Urine Glucose (UA) Neg mg/dL (Negative) 12/19/21 Unknown Urine Ketones 20 mg/dL (Negative) 12/19/21 Unknown Urine Blood Neg (Negative) 12/19/21 Unknown Urine Nitrite Neg (Negative) 12/19/21 Unknown Urine Bilirubin Neg (Negative) 12/19/21 Unknown Urine Urobilinogen 2.0 mg/dL (<2.0) 12/19/21 Unknown Ur Leukocyte Esterase Neg (Negative) 12/19/21 Unknown Urine WBC (Auto) 2.0 /HPF (0.0-6.0) 12/19/21 Unknown Urine RBC (Auto) 0.0 /HPF (0.0-6.0) 12/19/21 Unknown Urine Mucus Few /HPF 12/19/21 Unknown Salicylates < 0.3 mg/dL (2.8-20.0) L 12/19/21 Unknown Urine Opiates Screen Negative 12/19/21 Unknown Urine Methadone Screen Negative 12/19/21 Unknown Acetaminophen 5.0 ug/mL (10.0-30.0) L 12/20/21 15:08 Ur Barbiturates Screen Negative 12/19/21 Unknown Ur Phencyclidine Scrn Negative 12/19/21 Unknown Ur Amphetamines Screen Negative 12/19/21 Unknown U Benzodiazepines Scrn Negative 12/19/21 Unknown Urine Cocaine Screen Positive 12/19/21 Unknown U Marijuana (THC) Screen Negative 12/19/21 Unknown Drugs of Abuse Note Disclamer 12/19/21 Unknown Plasma/Serum Alcohol < 0.01 % (0-0.07) 12/19/21 Unknown [place]/IV: Voiding Method Toilet Active Medications - Current Medications Current Medications: Generic Name Dose Route Start Last Admin Trade Name Freq PRN Reason Stop Dose Admin Albuterol 2.5 mg 12/19/21 18:04 Albuterol 2.5 Mg/3 Ml Nebu IH Q3HRT PRN Shortness Of Breath Fluoxetine HCl 20 mg 12/21/21 12:00 12/26/21 09:35 Fluoxetine 20 Mg Cap PO 20 mg QDAY MARCOS Administration Acetylcysteine 6,340 mg/ 1,031.7 mls @ 62.5 mls/hr 12/22/21 23:15 12/25/21 18:35 Dextrose IV 62.5 mls/hr DIRECT MARCOS Administration Ibuprofen 600 mg 12/19/21 18:04 12/25/21 21:46 Ibuprofen 600 Mg Tab PO 600 mg Q6H PRN Administration Pain, Mild (1-3) Morphine Sulfate 2 mg 12/19/21 18:04 12/21/21 03:15 Morphine 2 Mg/1 Ml Inj IV 2 mg Q8H PRN Administration Pain, Moderate (4-6) Sodium Chloride 10 ml 12/19/21 22:00 12/26/21 09:36 Sodium Chloride 0.9% 10 Ml Flush Syringe IV 10 ml BID MARCOS Administration Sodium Chloride 10 ml 12/19/21 18:04 Sodium Chloride 0.9% 10 Ml Flush Syringe IV PRN PRN LINE FLUSH Trazodone HCl 50 mg 12/21/21 22:00 12/25/21 21:42 Trazodone 50 Mg Tab PO 50 mg QHS MARCOS Administration Nutrition/Malnutrition Assess - Dietary Evaluation Nutrition/Malnutrition Findings: Nutrition Notes Start: 12/21/21 11:31 Freq: Status: Active Protocol: Document 12/24/21 16:36 FERNANDO (Rec: 12/24/21 16:55 FERNANDO [id number]) Nutrition Notes Initial or Follow up Brief Note Other Pertinent Diagnosis Schizo-Affective Disorder, Acetaminophen OD, Cocaine & EtOH Dependence... Current Diet Regular Diet (since L 12/23). Labs/Tests 12/24: T Bili 1.2, AST 912, ALT 4341. Pertinent Medications 12/24: Nutriutionally unremarkable. Height 5 ft 7 in Weight 63.4 kg [place] Body Weight (kg) 67.27 BMI 21.9 Weight change and time frame No body weight change reported in 3 days. Weight Status Appropriate Subjective/Other Information RD consult for routine F/U on Dietary Advancement. Pt's PO intake of meals has been Good (100%), according to ADL notes. Pt is on Room Air, O2 saturation @ 97%, according to Physical Assessment History notes. Percent of energy/protein needs met: Prescribed Regular Diet provides for energy/protein needs (2,289 Kcal/89 g) during LOS. #1 Nutrition Diagnosis Inadequate oral intake Comments: Pt's PO intake of meals has been Good (100%), according to ADL notes. Diagnosis Progress(for reassessment Resolved documentation) Is patient on ventilator? No Is Patient Ambulatory and/or Out of Bed Yes REE-([place]-ambulatory/OOB) [ 1842.919 [id number]] Kcal/Kg value to use for calculation 27 Approximate Energy Requirements Using 1712 kcal/Kg Calculation Used for Recommendations Kcal/kg Additional Notes Protein: 0.8-1 g/Kg ABW; 51-63 g/day. Fluids: 1 ml/Kcal, or as per MD. Nutrition Intervention Change Diet Order: Continue Regular Diet. Goal #1 Maintain body weight within +/ -3% of admission body weight during LOS. Revisit per MD consult or patient Sign Off request: Additional Comments Continue monitoring food tolerance, %PO intake of meals , and BM.
[2021-12-26] MEDS: IBUPROFEN 600 MG TAB PO PRN (15:59)
[2021-12-26] MEDS: traZODone 50 MG TAB PO SCH (22:42)
[2021-12-26 23:39] LABS: Albumin 3.6 g/dL (3.9-5); Blood Urea Nitrogen 12 mg/dL (9-20); Calcium 8.5 mg/dL (8.4-10.2); Hemolysis Index 5
[2021-12-26 23:48] LABS: BUN/Creatinine Ratio 17
[2021-12-26 23:53] LABS: Alanine Aminotransferase 1895 units/L (7-56)
[2021-12-27 00:46] LABS: INR 0.9 (0.87-1.13)
[2021-12-27 01:01] LABS: Alanine Aminotransferase 1755 units/L (7-56)
[2021-12-27 05:56] LABS: Albumin 3.2 g/dL (3.9-5); BUN/Creatinine Ratio 14; Blood Urea Nitrogen 10 mg/dL (9-20); Calcium 8.2 mg/dL (8.4-10.2); Hemolysis Index 3
[2021-12-27 06:13] LABS: Alanine Aminotransferase 1613 units/L (7-56)
[2021-12-27] MEDS: FLUoxetine 20 MG CAP PO SCH (09:06)
[2021-12-27] MEDS: IBUPROFEN 600 MG TAB PO PRN ×2 (09:06→22:02)
--- NOTE | 2021-12-27 11:53 | Progress Note ---
Assessment and Plan Assessment and plan: 56 YO Male with MDD, Schizophrenia, PSA, Cocaine Dependence, OA, Nicotine Dependence, ETOH Dependence presents to ED for evaluation. Patient reports "I was trying to kill myself". Patient states that he has been feeling depressed over the past several days and subsequently began drinking alcohol at 1 AM and ingested crack cocaine. Patient states that he subsequently became distraught due to his relapse and at approximately 6 AM the patient ingested approximately 25-30 acetaminophen 500 mg tablets and a dose of diphenhydramine 25 mg and attempt to take his own life. EMS was notified and upon arrival the patient was found to be in distress and subsequently transported to [facility] for further care and evaluation of the aforementioned symptoms. The patient was seen and evaluated in the emergency department. All lab and imaging studies reviewed. Poison control notified. Patient treated with Acetadote as per poison control recommendations and admitted to [facility]. Patient is lethargic but arousable at the time my evaluation and has a positive gag reflex and is able protect his airway without difficulty. No reports of fever, chills, chest pain, palpitation, productive cough, skin rash, recent contact, trauma, known exposure to COVID-19. No prior admission for review. No medication listed at time of admission for reconciliation. Advanced care planning conducted in ED. 1013 placed in the emergency department. Mental health team consulted in ED. Hospital Course 12/20/2021 Tylenol overdose Patient symptomatically better Worsening transaminitis AST is worsened from 234to 717 ALT is worsened from 216 to 649 Needs more antidote per poison control APAP level: 5.0 now, down from 52.2 on 12/19. 12/21: AOx4 on encounter. Remain comfortably no acute complaints AST: 67596, ALT 50777, INR: 1.67--> 2.58, hepatic indices to tracked BID US liver pending, may order CTAP if further visualization of hepobiliary tree needed. Continues to get N-acetylcysteine IV per direction of poison control hepatitis panel pending. Continue supportive care. GI consultation, D/w Dr. Stevie Machado. 0 of [facility] Criteria met for Liver transplant referral. Lacks payer source, homeless, suicide attempt so not a candidate for liver transplantation. 12/22: INR improved to 1.58, PT: 20.8 Transaminases appear to have plateaued. Currently downtrending AST: 7K, ALT 10K, Total bili 2.1, Direct bili: 0.7. D/w Dr. Stevie Machado IV NAC infusing, continuation as per poison control. Continue to monitor liver indices q12hr. Avoid hepatotoxic agents Psych recommendations noted, continuation of 1013, patient initiated on prozac and trazadone, will need inpatient psych placement. 12/23: Transaminases downtrending, hepatic indices have demonstrated improvement. IV NAC continues to be infusing we will continue as per direction of poison control. Will await for AST, ALT, INR to normalize. Patient will need inpatient psychiatry placement once medically clear. 12/24: hepatic panel noted, AST, ALT, INR continue to normalize. On IV NAC as per poison control protocol. Patient is stable for floor transfer. 12/25: Patient remained in the IMCU but we will transfer him this morning to the floor. His liver function is improving. Still not at baseline for discharge. Psych has discontinued 1013 and deemed him not a candidate for inpatient psych placement. Lifestyle modification counseling provided to the patient for 15 minutes. He verbalized understanding. We will continue Acetadote treatment and follow serial liver function test at this time. 12/26: Clinically improving LFTs improving. Continue with Acetadote this morning Poison control advised to hold treatment after this bag is completed and obtain repeat LFT and will obtain further advice from them. Otherwise clinically stable no abdominal pain at this time. 12/27: Patient continues to show improvement both clinically and mentally. He reports he has been making arrangement for where to live when he leaves here. W ill check with poison control about possible discharge in am if LFT continues to improve Assessment and Plan: (1) Intentional acetaminophen overdose Status: Acute Qualifiers: Encounter type: initial encounter Qualified Code(s): T39.1X2A - Poisoning by 4-Aminophenol derivatives, intentional self-harm, initial encounter Plan to address problem: Elevated APAP level on admission. Poison control initial recommendations: RAMOS consulted at poison control. agree with Acetadote treatment based on unclear time of ingestion and single ingestion greater than 150 mg/kg. Recommends 2 hours prior to completion of the final infusion of Acetadote (third bag) recommends repeat AST, ALT, Tylenol, and INR to evaluate for the following parameters AST< 100 ALT < 100 INR < 1.5 tylenol < 10 If the results are greater than the parameters provided above (check 2 hours before completion of the final 16-hour infusion of Acetadote) then you need to repeat another 16-hour infusion of Acetadote. May call poison control for further clarification as needed Also recommend monitoring for anticholinergic poisoning given Benadryl overdose Continue acetylcysteine IV Will continue to follow poison control guidance Gi/hepatology following Improvement in hepatic markers (pt/inr, bili, transaminases), continue to monitor q12hr (2) Suicide attempt Status: Acute Plan to address problem: 1013 placed in the emergency department, mental health consult placed in the emergency department. Prozac Trazadone psychiatry following, recommend inpatient psych (3) Cocaine dependence Status: Acute Plan to address problem: Supportive care, IV fluid resuscitation therapy, +15 min behavioral health counseling on cocaine substance abuse, detrimental effect on overall health, and benefits of cessation. (4) Alcohol dependence Status: Acute Plan to address problem: Thiamine, folic acid, multivitamin, CIWA protocol. (5) Acute hepatic failure secondary to acetaminophen overdose (6) DVT prophylaxis Status: Acute Plan to address problem: SCD to bilateral lower extremities while in bed (7) Advance care planning Status: Acute Plan to address problem: Disease education data, care plan discussed, diagnoses discussed, prognosis discussed, patient is full code, +30 minutes. (8) Preventative health care Status: Acute Plan to address problem: Patient counseled regarding management of life stressors, outpatient drug dependence follow-up, outpatient psychiatric follow-up. +30 minutes. History Interval history: Patient seen and examined this morning, Very upbeat Hospitalist Physical - Physical exam Narrative exam: Physical Exam: VITAL SIGNS: Reviewed. GENERAL: The patient appears normally developed, Vital signs as documented. older than stated age. HEAD: No signs of head trauma. EYES: Pupils are equal. Extraocular motions intact. EARS: Hearing grossly intact. MOUTH: Oropharynx is normal. NECK: No adenopathy, no JVD. CHEST: Chest with clear breath sounds bilaterally. No wheezes, rales, or rhonchi. CARDIAC: Regular rate and rhythm. S1 and S2, without murmurs, gallops, or rubs. VASCULAR: No Edema. Peripheral pulses normal and equal in all extremities. ABDOMEN: Soft, non tender and non distended. No rebound or guarding, and no masses palpated. Bowel Sounds normal. MUSCULOSKELETAL: Good range of motion of all major joints. Extremities without clubbing, cyanosis or edema. NEUROLOGIC EXAM: Alert and oriented x 4. no focal sensory or strength deficits. Follows commands, normal speech PSYCHIATRIC: Mood normal. SKIN: detail exam as documented in skin assessment - Constitutional Vitals: Temp Pulse Resp BP Pulse Ox 97.9 F 59 L 18 120/81 95 12/27/21 05:30 12/27/21 05:30 12/27/21 09:06 12/27/21 05:30 12/27/21 06:00 General appearance: Present: mild distress Results - Labs CBC & Chem 7: 12/26/21 05:07 12/27/21 05:01 Labs: Laboratory Last Values WBC 8.3 K/mm3 (4.5-11.0) 12/26/21 05:07 RBC 4.12 M/mm3 (3.65-5.03) 12/26/21 05:07 Hgb 12.5 gm/dl (11.8-15.2) 12/26/21 05:07 Hct 37.2 % (35.5-45.6) 12/26/21 05:07 MCV 90 fl (84-94) 12/26/21 05:07 MCH 30 pg (28-32) 12/26/21 05:07 MCHC 34 % (32-34) 12/26/21 05:07 RDW 13.2 % (13.2-15.2) 12/26/21 05:07 Plt Count 231 K/mm3 (140-440) 12/26/21 05:07 Lymph % (Auto) 7.7 % (13.4-35.0) L 12/21/21 04:48 Steele % (Auto) 3.3 % (0.0-7.3) 12/21/21 04:48 Eos % (Auto) 0.2 % (0.0-4.3) 12/21/21 04:48 Baso % (Auto) 1.8 % (0.0-1.8) 12/21/21 04:48 Lymph # (Auto) 0.6 K/mm3 (1.2-5.4) L 12/21/21 04:48 Steele # (Auto) 0.2 K/mm3 (0.0-0.8) 12/21/21 04:48 Eos # (Auto) 0.0 K/mm3 (0.0-0.4) 12/21/21 04:48 Baso # (Auto) 0.1 K/mm3 (0.0-0.1) 12/21/21 04:48 Seg Neutrophils % 87.0 % (40.0-70.0) H 12/21/21 04:48 Seg Neutrophils # 6.3 K/mm3 (1.8-7.7) 12/21/21 04:48 PT 13.1 Sec. (12.2-14.9) 12/27/21 00:10 INR 0.90 (0.87-1.13) 12/27/21 00:10 APTT 31.4 Sec. (24.2-36.6) 12/19/21 Unknown Sodium 141 mmol/L (137-145) 12/27/21 05:01 Potassium 4.1 mmol/L (3.6-5.0) 12/27/21 05:01 Chloride 107.2 mmol/L (98-107) H 12/27/21 05:01 Carbon Dioxide 26 mmol/L (22-30) 12/27/21 05:01 Anion Gap 12 mmol/L 12/27/21 05:01 BUN 10 mg/dL (9-20) 12/27/21 05:01 Creatinine 0.7 mg/dL (0.8-1.3) L 12/27/21 05:01 Estimated GFR > 60 ml/min 12/27/21 05:01 BUN/Creatinine Ratio 14 % 12/27/21 05:01 Glucose 105 mg/dL (75-100) H 12/27/21 05:01 Calcium 8.2 mg/dL (8.4-10.2) L 12/27/21 05:01 Magnesium 1.80 mg/dL (1.7-2.3) 12/19/21 Unknown Total Bilirubin 0.50 mg/dL (0.1-1.2) 12/27/21 05:01 Direct Bilirubin 0.4 mg/dL (0-0.2) H 12/25/21 14:00 Indirect Bilirubin 0.3 mg/dL 12/25/21 14:00 AST 165 units/L (5-40) H 12/27/21 05:01 ALT 1613 units/L (7-56) H 12/27/21 05:01 Alkaline Phosphatase 129 units/L (35-129) 12/27/21 05:01 Total Creatine Kinase 119 units/L (55-170) 12/19/21 Unknown Total Protein 4.5 g/dL (6.3-8.2) L 12/27/21 05:01 Albumin 3.2 g/dL (3.9-5) L 12/27/21 05:01 Albumin/Globulin Ratio 2.5 % 12/27/21 05:01 Urine Color Yellow (Yellow) 12/19/21 Unknown Urine Turbidity Clear (Clear) 12/19/21 Unknown Urine pH 5.0 (5.0-7.0) 12/19/21 Unknown Ur Specific [place] 1.028 (1.003-1.030) 12/19/21 Unknown Urine Protein <15 mg/dl mg/dL (Negative) 12/19/21 Unknown Urine Glucose (UA) Neg mg/dL (Negative) 12/19/21 Unknown Urine Ketones 20 mg/dL (Negative) 12/19/21 Unknown Urine Blood Neg (Negative) 12/19/21 Unknown Urine Nitrite Neg (Negative) 12/19/21 Unknown Urine Bilirubin Neg (Negative) 12/19/21 Unknown Urine Urobilinogen 2.0 mg/dL (<2.0) 12/19/21 Unknown Ur Leukocyte Esterase Neg (Negative) 12/19/21 Unknown Urine WBC (Auto) 2.0 /HPF (0.0-6.0) 12/19/21 Unknown Urine RBC (Auto) 0.0 /HPF (0.0-6.0) 12/19/21 Unknown Urine Mucus Few /HPF 12/19/21 Unknown Salicylates < 0.3 mg/dL (2.8-20.0) L 12/19/21 Unknown Urine Opiates Screen Negative 12/19/21 Unknown Urine Methadone Screen Negative 12/19/21 Unknown Acetaminophen 5.0 ug/mL (10.0-30.0) L 12/20/21 15:08 Ur Barbiturates Screen Negative 12/19/21 Unknown Ur Phencyclidine Scrn Negative 12/19/21 Unknown Ur Amphetamines Screen Negative 12/19/21 Unknown U Benzodiazepines Scrn Negative 12/19/21 Unknown Urine Cocaine Screen Positive 12/19/21 Unknown U Marijuana (THC) Screen Negative 12/19/21 Unknown Drugs of Abuse Note Disclamer 12/19/21 Unknown Plasma/Serum Alcohol < 0.01 % (0-0.07) 12/19/21 Unknown [place]er/IV: Voiding Method Urinal Active Medications - Current Medications Current Medications: Generic Name Dose Route Start Last Admin Trade Name Freq PRN Reason Stop Dose Admin Albuterol 2.5 mg 12/19/21 18:04 Albuterol 2.5 Mg/3 Ml Nebu IH Q3HRT PRN Shortness Of Breath Fluoxetine HCl 20 mg 12/21/21 12:00 12/27/21 09:06 Fluoxetine 20 Mg Cap PO 20 mg QDAY MARCOS Administration Ibuprofen 600 mg 12/19/21 18:04 12/27/21 09:06 Ibuprofen 600 Mg Tab PO 600 mg Q6H PRN Administration Pain, Mild (1-3) Morphine Sulfate 2 mg 12/19/21 18:04 12/21/21 03:15 Morphine 2 Mg/1 Ml Inj IV 2 mg Q8H PRN Administration Pain, Moderate (4-6) Sodium Chloride 10 ml 12/19/21 22:00 12/27/21 09:07 Sodium Chloride 0.9% 10 Ml Flush Syringe IV 10 ml BID MARCOS Administration Sodium Chloride 10 ml 12/19/21 18:04 Sodium Chloride 0.9% 10 Ml Flush Syringe IV PRN PRN LINE FLUSH Trazodone HCl 50 mg 12/21/21 22:00 12/26/21 22:42 Trazodone 50 Mg Tab PO 50 mg QHS MARCOS Administration Nutrition/Malnutrition Assess - Dietary Evaluation Nutrition/Malnutrition Findings: Nutrition Notes Start: 12/21/21 11:31 Freq: Status: Active Protocol: Document 12/24/21 16:36 FERNANDO (Rec: 12/24/21 16:55 [email or web address] [id number]) Nutrition Notes Initial or Follow up Brief Note Other Pertinent Diagnosis Schizo-Affective Disorder, Acetaminophen OD, Cocaine & EtOH Dependence... Current Diet Regular Diet (since L 12/23). Labs/Tests 12/24: T Bili 1.2, AST 912, ALT 4341. Pertinent Medications 12/24: Nutriutionally unremarkable. Height 5 ft 7 in Weight 63.4 kg [place] Body Weight (kg) 67.27 BMI 21.9 Weight change and time frame No body weight change reported in 3 days. Weight Status Appropriate Subjective/Other Information RD consult for routine F/U on Dietary Advancement. Pt's PO intake of meals has been Good (100%), according to ADL notes. Pt is on Room Air, O2 saturation @ 97%, according to Physical Assessment History notes. Percent of energy/protein needs met: Prescribed Regular Diet provides for energy/protein needs (2,289 Kcal/89 g) during LOS. #1 Nutrition Diagnosis Inadequate oral intake Comments: Pt's PO intake of meals has been Good (100%), according to ADL notes. Diagnosis Progress(for reassessment Resolved documentation) Is patient on ventilator? No Is Patient Ambulatory and/or Out of Bed Yes REE-([place]-St. Jeor-ambulatory/OOB) [ 1842.919 [id number]] Kcal/Kg value to use for calculation 27 Approximate Energy Requirements Using 1712 kcal/Kg Calculation Used for Recommendations Kcal/kg Additional Notes Protein: 0.8-1 g/Kg ABW; 51-63 g/day. Fluids: 1 ml/Kcal, or as per MD. Nutrition Intervention Change Diet Order: Continue Regular Diet. Goal #1 Maintain body weight within +/ -3% of admission body weight during LOS. Revisit per MD consult or patient Sign Off request: Additional Comments Continue monitoring food tolerance, %PO intake of meals , and BM.
[2021-12-27] MEDS: traZODone 50 MG TAB PO SCH (21:56)
[2021-12-28 05:50] LABS: Hematocrit 35.1 % (35.5-45.6); Hemoglobin 11.7 gm/dl (11.8-15.2); Mean Corpuscular HGB Conc 33 % (32-34); Mean Corpuscular Volume 91 fl (84-94); Platelet Count 259 K/mm3 (140-440); Red Blood Count 3.85 M/mm3 (3.65-5.03); Red Cell Distribution Width 13.7 % (13.2-15.2)
[2021-12-28 06:13] LABS: Albumin 3.1 g/dL (3.9-5); BUN/Creatinine Ratio 20; Blood Urea Nitrogen 12 mg/dL (9-20); Calcium 8.7 mg/dL (8.4-10.2); Hemolysis Index 2
[2021-12-28 06:28] LABS: Alanine Aminotransferase 1238 units/L (7-56)
[2021-12-28] MEDS: FLUoxetine 20 MG CAP PO SCH (09:27)
--- NOTE | 2021-12-28 12:51 | Progress Note ---
Assessment and Plan Assessment and plan: 56 YO Male with MDD, Schizophrenia, PSA, Cocaine Dependence, OA, Nicotine Dependence, ETOH Dependence presents to ED for evaluation. Patient reports "I was trying to kill myself". Patient states that he has been feeling depressed over the past several days and subsequently began drinking alcohol at 1 AM and ingested crack cocaine. Patient states that he subsequently became distraught due to his relapse and at approximately 6 AM the patient ingested approximately 25-30 acetaminophen 500 mg tablets and a dose of diphenhydramine 25 mg and attempt to take his own life. EMS was notified and upon arrival the patient was found to be in distress and subsequently transported to [facility] for further care and evaluation of the aforementioned symptoms. The patient was seen and evaluated in the emergency department. All lab and imaging studies reviewed. Poison control notified. Patient treated with Acetadote as per poison control recommendations and admitted to [facility]. Patient is lethargic but arousable at the time my evaluation and has a positive gag reflex and is able protect his airway without difficulty. No reports of fever, chills, chest pain, palpitation, productive cough, skin rash, recent contact, trauma, known exposure to COVID-19. No prior admission for review. No medication listed at time of admission for reconciliation. Advanced care planning conducted in ED. 1013 placed in the emergency department. Mental health team consulted in ED. Hospital Course 12/20/2021 Tylenol overdose Patient symptomatically better Worsening transaminitis AST is worsened from 234to 717 ALT is worsened from 216 to 649 Needs more antidote per poison control APAP level: 5.0 now, down from 52.2 on 12/19. 12/21: AOx4 on encounter. Remain comfortably no acute complaints AST: 50220, ALT 77901, INR: 1.67--> 2.58, hepatic indices to tracked BID US liver pending, may order CTAP if further visualization of hepobiliary tree needed. Continues to get N-acetylcysteine IV per direction of poison control hepatitis panel pending. Continue supportive care. GI consultation, D/w Dr. Stevie Machado. 0 of [facility] Criteria met for Liver transplant referral. Lacks payer source, homeless, suicide attempt so not a candidate for liver transplantation. 12/22: INR improved to 1.58, PT: 20.8 Transaminases appear to have plateaued. Currently downtrending AST: 7K, ALT 10K, Total bili 2.1, Direct bili: 0.7. D/w Dr. Stevie Machado IV NAC infusing, continuation as per poison control. Continue to monitor liver indices q12hr. Avoid hepatotoxic agents Psych recommendations noted, continuation of 1013, patient initiated on prozac and trazadone, will need inpatient psych placement. 12/23: Transaminases downtrending, hepatic indices have demonstrated improvement. IV NAC continues to be infusing we will continue as per direction of poison control. Will await for AST, ALT, INR to normalize. Patient will need inpatient psychiatry placement once medically clear. 12/24: hepatic panel noted, AST, ALT, INR continue to normalize. On IV NAC as per poison control protocol. Patient is stable for floor transfer. 12/25: Patient remained in the IMCU but we will transfer him this morning to the floor. His liver function is improving. Still not at baseline for discharge. Psych has discontinued 1013 and deemed him not a candidate for inpatient psych placement. Lifestyle modification counseling provided to the patient for 15 minutes. He verbalized understanding. We will continue Acetadote treatment and follow serial liver function test at this time. 12/26: Clinically improving LFTs improving. Continue with Acetadote this morning Poison control advised to hold treatment after this bag is completed and obtain repeat LFT and will obtain further advice from them. Otherwise clinically stable no abdominal pain at this time. 12/27: Patient continues to show improvement both clinically and mentally. He reports he has been making arrangement for where to live when he leaves here. W ill check with poison control about possible discharge in am if LFT continues to improve. 12/28: Patient seen and examined, I discussed with Poison control, they have no objection for discharge as long as clinically the patient is doing well which he is. He understands the discharge plan and case management/social contact worker is working with him for placement and also outpatient labs. Anticipate discharge in am if AST/ALT continues to improve. Assessment and Plan: (1) Intentional acetaminophen overdose Status: Acute Qualifiers: Encounter type: initial encounter Qualified Code(s): T39.1X2A - Poisoning by 4-Aminophenol derivatives, intentional self-harm, initial encounter Plan to address problem: Elevated APAP level on admission. Poison control initial recommendations: RAMOS consulted at poison control. agree with Acetadote treatment based on unclear time of ingestion and single ingestion greater than 150 mg/kg. Recommends 2 hours prior to completion of the final infusion of Acetadote (third bag) recommends repeat AST, ALT, Tylenol, and INR to evaluate for the following parameters AST< 100 ALT < 100 INR < 1.5 tylenol < 10 If the results are greater than the parameters provided above (check 2 hours before completion of the final 16-hour infusion of Acetadote) then you need to repeat another 16-hour infusion of Acetadote. May call poison control for further clarification as needed Also recommend monitoring for anticholinergic poisoning given Benadryl overdose Continue acetylcysteine IV Will continue to follow poison control guidance Gi/hepatology following Improvement in hepatic markers (pt/inr, bili, transaminases), continue to monitor q12hr (2) Suicide attempt Status: Acute Plan to address problem: 1013 placed in the emergency department, mental health consult placed in the emergency department. Prozac Trazadone psychiatry following, recommend inpatient psych (3) Cocaine dependence Status: Acute Plan to address problem: Supportive care, IV fluid resuscitation therapy, +15 min behavioral health counseling on cocaine substance abuse, detrimental effect on overall health, and benefits of cessation. (4) Alcohol dependence Status: Acute Plan to address problem: Thiamine, folic acid, multivitamin, CIWA protocol. (5) Acute hepatic failure secondary to acetaminophen overdose (6) DVT prophylaxis Status: Acute Plan to address problem: SCD to bilateral lower extremities while in bed (7) Advance care planning Status: Acute Plan to address problem: Disease education data, care plan discussed, diagnoses discussed, prognosis discussed, patient is full code, +30 minutes. (8) Preventative health care Status: Acute Plan to address problem: Patient counseled regarding management of life stressors, outpatient drug dependence follow-up, outpatient psychiatric follow-up. +30 minutes. History Interval history: Patient seen and examined this morning, Very upbeat, no new complaints Hospitalist Physical - Physical exam Narrative exam: Physical Exam: VITAL SIGNS: Reviewed. GENERAL: The patient appears normally developed, Vital signs as documented. older than stated age. HEAD: No signs of head trauma. EYES: Pupils are equal. Extraocular motions intact. EARS: Hearing grossly intact. MOUTH: Oropharynx is normal. NECK: No adenopathy, no JVD. CHEST: Chest with clear breath sounds bilaterally. No wheezes, rales, or rhonchi. CARDIAC: Regular rate and rhythm. S1 and S2, without murmurs, gallops, or rubs. VASCULAR: No Edema. Peripheral pulses normal and equal in all extremities. ABDOMEN: Soft, non tender and non distended. No rebound or guarding, and no masses palpated. Bowel Sounds normal. MUSCULOSKELETAL: Good range of motion of all major joints. Extremities without clubbing, cyanosis or edema. NEUROLOGIC EXAM: Alert and oriented x 4. no focal sensory or strength deficits. Follows commands, normal speech PSYCHIATRIC: Mood normal. SKIN: detail exam as documented in skin assessment - Constitutional Vitals: Temp Pulse Resp BP Pulse Ox 97.4 F L 70 16 130/83 98 12/28/21 04:41 12/28/21 04:41 12/28/21 04:41 12/28/21 04:41 12/28/21 12:05 General appearance: Present: mild distress Results - Labs CBC & Chem 7: 12/28/21 05:16 12/28/21 05:16 Labs: Laboratory Last Values WBC 7.9 K/mm3 (4.5-11.0) 12/28/21 05:16 RBC 3.85 M/mm3 (3.65-5.03) 12/28/21 05:16 Hgb 11.7 gm/dl (11.8-15.2) L 12/28/21 05:16 Hct 35.1 % (35.5-45.6) L 12/28/21 05:16 MCV 91 fl (84-94) 12/28/21 05:16 MCH 30 pg (28-32) 12/28/21 05:16 MCHC 33 % (32-34) 12/28/21 05:16 RDW 13.7 % (13.2-15.2) 12/28/21 05:16 Plt Count 259 K/mm3 (140-440) 12/28/21 05:16 Lymph % (Auto) 7.7 % (13.4-35.0) L 12/21/21 04:48 [place] % (Auto) 3.3 % (0.0-7.3) 12/21/21 04:48 Eos % (Auto) 0.2 % (0.0-4.3) 12/21/21 04:48 Baso % (Auto) 1.8 % (0.0-1.8) 12/21/21 04:48 Lymph # (Auto) 0.6 K/mm3 (1.2-5.4) L 12/21/21 04:48 [place] # (Auto) 0.2 K/mm3 (0.0-0.8) 12/21/21 04:48 Eos # (Auto) 0.0 K/mm3 (0.0-0.4) 12/21/21 04:48 Baso # (Auto) 0.1 K/mm3 (0.0-0.1) 12/21/21 04:48 Seg Neutrophils % 87.0 % (40.0-70.0) H 12/21/21 04:48 Seg Neutrophils # 6.3 K/mm3 (1.8-7.7) 12/21/21 04:48 PT 13.1 Sec. (12.2-14.9) 12/27/21 00:10 INR 0.90 (0.87-1.13) 12/27/21 00:10 APTT 31.4 Sec. (24.2-36.6) 12/19/21 Unknown Sodium 142 mmol/L (137-145) 12/28/21 05:16 Potassium 4.4 mmol/L (3.6-5.0) 12/28/21 05:16 Chloride 107.9 mmol/L (98-107) H 12/28/21 05:16 Carbon Dioxide 27 mmol/L (22-30) 12/28/21 05:16 Anion Gap 12 mmol/L 12/28/21 05:16 BUN 12 mg/dL (9-20) 12/28/21 05:16 Creatinine 0.6 mg/dL (0.8-1.3) L 12/28/21 05:16 Estimated GFR > 60 ml/min 12/28/21 05:16 BUN/Creatinine Ratio 20 % 12/28/21 05:16 Glucose 110 mg/dL (75-100) H 12/28/21 05:16 Calcium 8.7 mg/dL (8.4-10.2) 12/28/21 05:16 Magnesium 1.80 mg/dL (1.7-2.3) 12/19/21 Unknown Total Bilirubin 0.40 mg/dL (0.1-1.2) 12/28/21 05:16 Direct Bilirubin 0.4 mg/dL (0-0.2) H 12/25/21 14:00 Indirect Bilirubin 0.3 mg/dL 12/25/21 14:00 AST 108 units/L (5-40) H 12/28/21 05:16 ALT 1238 units/L (7-56) H 12/28/21 05:16 Alkaline Phosphatase 119 units/L (35-129) 12/28/21 05:16 Total Creatine Kinase 119 units/L (55-170) 12/19/21 Unknown Total Protein 4.5 g/dL (6.3-8.2) L 12/28/21 05:16 Albumin 3.1 g/dL (3.9-5) L 12/28/21 05:16 Albumin/Globulin Ratio 2.2 % 12/28/21 05:16 Urine Color Yellow (Yellow) 12/19/21 Unknown Urine Turbidity Clear (Clear) 12/19/21 Unknown Urine pH 5.0 (5.0-7.0) 12/19/21 Unknown Ur Specific [place] 1.028 (1.003-1.030) 12/19/21 Unknown Urine Protein <15 mg/dl mg/dL (Negative) 12/19/21 Unknown Urine Glucose (UA) Neg mg/dL (Negative) 12/19/21 Unknown Urine Ketones 20 mg/dL (Negative) 12/19/21 Unknown Urine Blood Neg (Negative) 12/19/21 Unknown Urine Nitrite Neg (Negative) 12/19/21 Unknown Urine Bilirubin Neg (Negative) 12/19/21 Unknown Urine Urobilinogen 2.0 mg/dL (<2.0) 12/19/21 Unknown Ur Leukocyte Esterase Neg (Negative) 12/19/21 Unknown Urine WBC (Auto) 2.0 /HPF (0.0-6.0) 12/19/21 Unknown Urine RBC (Auto) 0.0 /HPF (0.0-6.0) 12/19/21 Unknown Urine Mucus Few /HPF 12/19/21 Unknown Salicylates < 0.3 mg/dL (2.8-20.0) L 12/19/21 Unknown Urine Opiates Screen Negative 12/19/21 Unknown Urine Methadone Screen Negative 12/19/21 Unknown Acetaminophen 5.0 ug/mL (10.0-30.0) L 12/20/21 15:08 Ur Barbiturates Screen Negative 12/19/21 Unknown Ur Phencyclidine Scrn Negative 12/19/21 Unknown Ur Amphetamines Screen Negative 12/19/21 Unknown U Benzodiazepines Scrn Negative 12/19/21 Unknown Urine Cocaine Screen Positive 12/19/21 Unknown U Marijuana (THC) Screen Negative 12/19/21 Unknown Drugs of Abuse Note Disclamer 12/19/21 Unknown Plasma/Serum Alcohol < 0.01 % (0-0.07) 12/19/21 Unknown [place]/IV: Voiding Method Toilet Active Medications - Current Medications Current Medications: Generic Name Dose Route Start Last Admin Trade Name Freq PRN Reason Stop Dose Admin Albuterol 2.5 mg 12/19/21 18:04 Albuterol 2.5 Mg/3 Ml Nebu IH Q3HRT PRN Shortness Of Breath Fluoxetine HCl 20 mg 12/21/21 12:00 12/28/21 09:27 Fluoxetine 20 Mg Cap PO 20 mg QDAY MARCOS Administration Ibuprofen 600 mg 12/19/21 18:04 12/27/21 22:02 Ibuprofen 600 Mg Tab PO 600 mg Q6H PRN Administration Pain, Mild (1-3) Morphine Sulfate 2 mg 12/19/21 18:04 12/21/21 03:15 Morphine 2 Mg/1 Ml Inj IV 2 mg Q8H PRN Administration Pain, Moderate (4-6) Sodium Chloride 10 ml 12/19/21 22:00 12/28/21 09:28 Sodium Chloride 0.9% 10 Ml Flush Syringe IV 10 ml BID MARCOS Administration Sodium Chloride 10 ml 12/19/21 18:04 Sodium Chloride 0.9% 10 Ml Flush Syringe IV PRN PRN LINE FLUSH Trazodone HCl 50 mg 12/21/21 22:00 12/27/21 21:56 Trazodone 50 Mg Tab PO 50 mg QHS MARCOS Administration Nutrition/Malnutrition Assess - Dietary Evaluation Nutrition/Malnutrition Findings: Nutrition Notes Start: 12/21/21 11:31 Freq: Status: Active Protocol: Document 12/24/21 16:36 FERNANDO (Rec: 12/24/21 16:55 FERNANDO [id number]) Nutrition Notes Initial or Follow up Brief Note Other Pertinent Diagnosis Schizo-Affective Disorder, Acetaminophen OD, Cocaine & EtOH Dependence... Current Diet Regular Diet (since L 12/23). Labs/Tests 12/24: T Bili 1.2, AST 912, ALT 4341. Pertinent Medications 12/24: Nutriutionally unremarkable. Height 5 ft 7 in Weight 63.4 kg [place] Body Weight (kg) 67.27 BMI 21.9 Weight change and time frame No body weight change reported in 3 days. Weight Status Appropriate Subjective/Other Information RD consult for routine F/U on Dietary Advancement. Pt's PO intake of meals has been Good (100%), according to ADL notes. Pt is on Room Air, O2 saturation @ 97%, according to Physical Assessment History notes. Percent of energy/protein needs met: Prescribed Regular Diet provides for energy/protein needs (2,289 Kcal/89 g) during LOS. #1 Nutrition Diagnosis Inadequate oral intake Comments: Pt's PO intake of meals has been Good (100%), according to ADL notes. Diagnosis Progress(for reassessment Resolved documentation) Is patient on ventilator? No Is Patient Ambulatory and/or Out of Bed Yes REE-([place]-St. Jeor-ambulatory/OOB) [ 1842.919 [id number]] Kcal/Kg value to use for calculation 27 Approximate Energy Requirements Using 1712 kcal/Kg Calculation Used for Recommendations Kcal/kg Additional Notes Protein: 0.8-1 g/Kg ABW; 51-63 g/day. Fluids: 1 ml/Kcal, or as per MD. Nutrition Intervention Change Diet Order: Continue Regular Diet. Goal #1 Maintain body weight within +/ -3% of admission body weight during LOS. Revisit per MD consult or patient Sign Off request: Additional Comments Continue monitoring food tolerance, %PO intake of meals , and BM.
[2021-12-28] MEDS: IBUPROFEN 600 MG TAB PO PRN ×2 (15:06→21:55)
[2021-12-28] MEDS: traZODone 50 MG TAB PO SCH (21:55)
[2021-12-29] MEDS: FLUoxetine 20 MG CAP PO SCH (09:02)
--- NOTE | 2021-12-29 10:48 | Discharge Summary ---
Providers - Providers Date of Admission: 12/19/21 18:05 Date of discharge: 12/30/21 Attending physician: BIA VIRGEN 12/19/21 18:08 Consult to Mental Health [CONS] Routine Reason For Exam: suicide attempt/MDD 12/21/21 08:41 Consult to Physician [CONS] Routine Comment: called [id number]/ [place] Consulting Provider: KATE RODRIGUEZ Physician Instructions: Reason For Exam: apap overdose, worsening transaminitis 12/28/21 12:49 Consult to Case Management [CONS] Routine Services Needed at Discharge: Brush Or Broom Cutter Notified:: no Additional Physician Instructions: discharge plan. Looking at discharge 12/29/21 Primary care physician: SKILLS INSTRUCTOR Hospitalization Reason for admission: Suicidal ideation Condition: Stable Hospital course: 56 YO Male with MDD, Schizophrenia, PSA, Cocaine Dependence, OA, Nicotine Dependence, ETOH Dependence presents to ED for evaluation of suicidal attempt and depression. 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 Patient states that he subsequently became distraught due to his relapse and at approximately 6 AM the patient ingested approximately 25-30 acetaminophen 500 mg tablets and a dose of diphenhydramine 25 mg and attempt to take his own life. EMS was notified and upon arrival the patient was found to be in distress and subsequently transported to [facility] for further care and evaluation of the aforementioned symptoms. Poison control notified. Patient treated with Acetadote as per poison control recommendations and admitted to [facility]. 1013 placed in the emergency department. Mental health team consulted in ED. the patient was admitted with diagnosis of intentional acetaminophen overdose, suicide attempt, cocaine dependence, alcohol dependence and acute hepatic failure secondary to acetaminophen overdose. Poison control initial recommendations: RAMOS consulted at poison control. agree with Acetadote treatment based on unclear time of ingestion and single ingestion greater than 150 mg/kg. Recommends 2 hours prior to completion of the final infusion of Acetadote (third bag) recommends repeat AST, ALT, Tylenol, and INR to evaluate for the following parameters AST< 100 ALT < 100 INR < 1.5 tylenol < 10 If the results are greater than the parameters provided above (check 2 hours before completion of the final 16-hour infusion of Acetadote) then you need to repeat another 16-hour infusion of Acetadote. May call poison control for further clarification as needed Also recommend monitoring for anticholinergic poisoning given Benadryl overdose The patient was continued on acetylcysteine IV Gi/hepatology consulted. Over the course of the hospitalization, patient had improvement in hepatic markers (pt/inr, bili, transaminases), patient was seen by psychiatry for the suicide attempt and initially placed on 1013 and had recommendations for inpatient psych. The patient also received withdrawal protocols for cocaine and alcohol dependence. The patient received thiamine, folic acid, multivitamin and CIWA protocol. Later during hospitalization psychiatry discontinue 1013 Detailed Hospital Course 12/20/2021 Tylenol overdose Patient symptomatically better Worsening transaminitis AST is worsened from 234to 717 ALT is worsened from 216 to 649 Needs more antidote per poison control APAP level: 5.0 now, down from 52.2 on 12/19. 12/21: AOx4 on encounter. Remain comfortably no acute complaints AST: 37647, ALT 93735, INR: 1.67--> 2.58, hepatic indices to tracked BID US liver pending, may order CTAP if further visualization of hepobiliary tree needed. Continues to get N-acetylcysteine IV per direction of poison control hepatitis panel pending. Continue supportive care. GI consultation, D/w Dr. Kate Rodriguez. 0 of [facility] Criteria met for Liver transplant referral. Lacks payer source, homeless, suicide attempt so not a candidate for liver transplantation. 12/22: INR improved to 1.58, PT: 20.8 Transaminases appear to have plateaued. Currently downtrending AST: 7K, ALT 10K, Total bili 2.1, Direct bili: 0.7. D/w Dr. Kate Rodriguez IV NAC infusing, continuation as per poison control. Continue to monitor liver indices q12hr. Avoid hepatotoxic agents Psych recommendations noted, continuation of 1013, patient initiated on prozac and trazadone, will need inpatient psych placement. 12/23: Transaminases downtrending, hepatic indices have demonstrated improvement. IV NAC continues to be infusing we will continue as per direction of poison control. Will await for AST, ALT, INR to normalize. Patient will need inpatient psychiatry placement once medically clear. 12/24: hepatic panel noted, AST, ALT, INR continue to normalize. On IV NAC as per poison control protocol. Patient is stable for floor transfer. 12/25: Patient remained in the IMCU but we will transfer him this morning to the floor. His liver function is improving. Still not at baseline for discharge. Psych has discontinued 1013 and deemed him not a candidate for inpatient psych placement. Lifestyle modification counseling provided to the patient for 15 minutes. He verbalized understanding. We will continue Acetadote treatment and follow serial liver function test at this time. 12/26: Clinically improving LFTs improving. Continue with Acetadote this morning Poison control advised to hold treatment after this bag is completed and obtain repeat LFT and will obtain further advice from them. Otherwise clinically stable no abdominal pain at this time. 12/27: Patient continues to show improvement both clinically and mentally. He reports he has been making arrangement for where to live when he leaves here. Will check with poison control about possible discharge in am if LFT continues to improve. 12/28: Patient seen and examined, I discussed with Poison control, they have no objection for discharge as long as clinically the patient is doing well which he is. He understands the discharge plan and case management/marriage and family social worker is working with him for placement and also outpatient labs. Anticipate discharge in am if AST/ALT continues to improve. 12/29: Case management to arrange for jail recommendation for the patient to be discharged to today. Dedicated discharge time 35 minutes Disposition: HOME / SELF CARE / HOMELESS Final Discharge Diagnosis (Prints w/discharge instructions): intentional acet aminophen overdose, suicide attempt, cocaine dependence, alcohol dependence and acute hepatic failure secondary to acetaminophen overdose. Core Measure Documentation - Palliative Care Palliative Care/ Comfort Measures: Not Applicable - Core Measures Any of the following diagnoses?: none Exam - Constitutional Vitals: Temp Pulse Resp BP Pulse Ox 97.5 F L 63 20 126/79 96 12/29/21 06:19 12/29/21 06:19 12/29/21 06:19 12/29/21 06:19 12/29/21 06:19 General appearance: Present: no acute distress, well-nourished - EENT Eyes: Present: PERRL ENT: hearing intact, clear oral mucosa - Neck Neck: Present: supple, normal ROM - Respiratory Respiratory effort: normal Respiratory: bilateral: CTA - Cardiovascular Heart Sounds: Present: S1 & S2. Absent: rub, click - Extremities Extremities: pulses symmetrical, No edema Peripheral Pulses: within normal limits - Abdominal General gastrointestinal: Present: soft, non-tender, non-distended, normal bowel sounds Male genitourinary: Present: normal - Integumentary Integumentary: Present: clear, warm, dry - Musculoskeletal Musculoskeletal: gait normal, strength equal bilaterally - Psychiatric Psychiatric: appropriate mood/affect, intact judgment & insight - Neurologic Neurologic: CNII-XII intact, moves all extremities Plan Activity: advance as tolerated Weight Bearing Status: Weight Bear as Tolerated Diet: regular Follow up with: PRIMARY CARE, [Primary Care Provider] - 7 Days Prescriptions: traZODone [Desyrel] 50 mg PO QHS #30 tablet FLUoxetine [PROzac] 20 mg PO QDAY #30 capsule FLUoxetine [PROzac] 20 mg PO QDAY #30 capsule Trazodone HCl 50 mg PO QHS #30
[2021-12-29 11:03] LABS: INR 0.92 (0.87-1.13)
[2021-12-29 11:13] LABS: Albumin 3.5 g/dL (3.9-5); Blood Urea Nitrogen 12 mg/dL (9-20); Calcium 9.1 mg/dL (8.4-10.2); Hemolysis Index 5
[2021-12-29 11:18] LABS: BUN/Creatinine Ratio 17
[2021-12-29 11:29] LABS: Alanine Aminotransferase 980 units/L (7-56)
[2021-12-29] MEDS: IBUPROFEN 600 MG TAB PO PRN ×2 (13:32→22:18)
[2021-12-29] MEDS: traZODone 50 MG TAB PO SCH (22:17)
--- NOTE | 2021-12-30 09:23 | Progress Note ---
Assessment and Plan Assessment and plan: 56 YO Male with MDD, Schizophrenia, PSA, Cocaine Dependence, OA, Nicotine Dependence, ETOH Dependence presents to ED for evaluation. Patient reports "I was trying to kill myself". Patient states that he has been feeling depressed over the past several days and subsequently began drinking alcohol at 1 AM and ingested crack cocaine. Patient states that he subsequently became distraught due to his relapse and at approximately 6 AM the patient ingested approximately 25-30 acetaminophen 500 mg tablets and a dose of diphenhydramine 25 mg and attempt to take his own life. EMS was notified and upon arrival the patient was found to be in distress and subsequently transported to [facility] for further care and evaluation of the aforementioned symptoms. The patient was seen and evaluated in the emergency department. All lab and imaging studies reviewed. Poison control notified. Patient treated with Acetadote as per poison control recommendations and admitted to [facility]. Patient is lethargic but arousable at the time my evaluation and has a positive gag reflex and is able protect his airway without difficulty. No reports of fever, chills, chest pain, palpitation, productive cough, skin rash, recent contact, trauma, known exposure to COVID-19. No prior admission for review. No medication listed at time of admission for reconciliation. Advanced care planning conducted in ED. 1013 placed in the emergency department. Mental health team consulted in ED. Hospital Course 12/20/2021 Tylenol overdose Patient symptomatically better Worsening transaminitis AST is worsened from 234to 717 ALT is worsened from 216 to 649 Needs more antidote per poison control APAP level: 5.0 now, down from 52.2 on 12/19. 12/21: AOx4 on encounter. Remain comfortably no acute complaints AST: 10598, ALT 40751, INR: 1.67--> 2.58, hepatic indices to tracked BID US liver pending, may order CTAP if further visualization of hepobiliary tree needed. Continues to get N-acetylcysteine IV per direction of poison control hepatitis panel pending. Continue supportive care. GI consultation, D/w Dr. Stevie Machado. [address] [facility] Criteria met for Liver transplant referral. Lacks payer source, homeless, suicide attempt so not a candidate for liver transplantation. 12/22: INR improved to 1.58, PT: 20.8 Transaminases appear to have plateaued. Currently downtrending AST: 7K, ALT 10K, Total bili 2.1, Direct bili: 0.7. D/w Dr. Stevie Machado IV NAC infusing, continuation as per poison control. Continue to monitor liver indices q12hr. Avoid hepatotoxic agents Psych recommendations noted, continuation of 1013, patient initiated on prozac and trazadone, will need inpatient psych placement. 12/23: Transaminases downtrending, hepatic indices have demonstrated improvement. IV NAC continues to be infusing we will continue as per direction of poison control. Will await for AST, ALT, INR to normalize. Patient will need inpatient psychiatry placement once medically clear. 12/24: hepatic panel noted, AST, ALT, INR continue to normalize. On IV NAC as per poison control protocol. Patient is stable for floor transfer. 12/25: Patient remained in the IMCU but we will transfer him this morning to the floor. His liver function is improving. Still not at baseline for discharge. Psych has discontinued 1013 and deemed him not a candidate for inpatient psych placement. Lifestyle modification counseling provided to the patient for 15 minutes. He verbalized understanding. We will continue Acetadote treatment and follow serial liver function test at this time. 12/26: Clinically improving LFTs improving. Continue with Acetadote this morning Poison control advised to hold treatment after this bag is completed and obtain repeat LFT and will obtain further advice from them. Otherwise clinically stable no abdominal pain at this time. 12/27: Patient continues to show improvement both clinically and mentally. He reports he has been making arrangement for where to live when he leaves here. Will check with poison control about possible discharge in am if LFT continues to improve. 12/28: Patient seen and examined, I discussed with Poison control, they have no objection for discharge as long as clinically the patient is doing well which he is. He understands the discharge plan and case management/social security benefits interviewer is working with him for placement and also outpatient labs. Anticipate discharge in am if AST/ALT continues to improve. 12/29: Patient seen and examined. As noted from documentation yesterday Poison control has cleared the patient for discharge. Case management has given the patient community resources for food stamps, social security office to start benefits/make an appointment, and mental health resources for outpatient. Bus Pass will be provided to patient and a list of shelters. No additional social needs at this time. Anticipate discharge later today or in a.m. History Interval history: No new issues overnight Hospitalist Physical - Constitutional Vitals: Temp Pulse Resp BP Pulse Ox 97.6 F 63 18 140/87 97 12/30/21 06:42 12/30/21 06:42 12/30/21 06:42 12/30/21 06:42 12/30/21 06:42 General appearance: Present: no acute distress, well-nourished - EENT Eyes: Present: PERRL, EOM intact ENT: hearing intact, clear oral mucosa, dentition normal - Neck Neck: Present: supple, normal ROM - Respiratory Respiratory effort: normal Respiratory: bilateral: CTA - Cardiovascular Rhythm: regular Heart Sounds: Present: S1 & S2. Absent: gallop, rub - Extremities Extremities: no ischemia, No edema, Full ROM - Abdominal General gastrointestinal: soft, non-tender, non-distended, normal bowel sounds - Integumentary Integumentary: Present: clear, warm, dry - Neurologic Neurologic: CNII-XII intact, moves all extremities Results - Labs CBC & Chem 7: 12/28/21 05:16 12/29/21 10:29 Labs: Laboratory Last Values WBC 7.9 K/mm3 (4.5-11.0) 12/28/21 05:16 RBC 3.85 M/mm3 (3.65-5.03) 12/28/21 05:16 Hgb 11.7 gm/dl (11.8-15.2) L 12/28/21 05:16 Hct 35.1 % (35.5-45.6) L 12/28/21 05:16 MCV 91 fl (84-94) 12/28/21 05:16 MCH 30 pg (28-32) 12/28/21 05:16 MCHC 33 % (32-34) 12/28/21 05:16 RDW 13.7 % (13.2-15.2) 12/28/21 05:16 Plt Count 259 K/mm3 (140-440) 12/28/21 05:16 Lymph % (Auto) 7.7 % (13.4-35.0) L 12/21/21 04:48 [place] % (Auto) 3.3 % (0.0-7.3) 12/21/21 04:48 Eos % (Auto) 0.2 % (0.0-4.3) 12/21/21 04:48 Baso % (Auto) 1.8 % (0.0-1.8) 12/21/21 04:48 Lymph # (Auto) 0.6 K/mm3 (1.2-5.4) L 12/21/21 04:48 [place] # (Auto) 0.2 K/mm3 (0.0-0.8) 12/21/21 04:48 Eos # (Auto) 0.0 K/mm3 (0.0-0.4) 12/21/21 04:48 Baso # (Auto) 0.1 K/mm3 (0.0-0.1) 12/21/21 04:48 Seg Neutrophils % 87.0 % (40.0-70.0) H 12/21/21 04:48 Seg Neutrophils # 6.3 K/mm3 (1.8-7.7) 12/21/21 04:48 PT 13.3 Sec. (12.2-14.9) 12/29/21 10:29 INR 0.92 (0.87-1.13) 12/29/21 10:29 APTT 31.4 Sec. (24.2-36.6) 12/19/21 Unknown Sodium 144 mmol/L (137-145) 12/29/21 10:29 Potassium 5.3 mmol/L (3.6-5.0) H D 12/29/21 10:29 Chloride 105.5 mmol/L (98-107) 12/29/21 10:29 Carbon Dioxide 31 mmol/L (22-30) H 12/29/21 10:29 Anion Gap 13 mmol/L 12/29/21 10:29 BUN 12 mg/dL (9-20) 12/29/21 10:29 Creatinine 0.7 mg/dL (0.8-1.3) L 12/29/21 10:29 Estimated GFR > 60 ml/min 12/29/21 10:29 BUN/Creatinine Ratio 17 % 12/29/21 10:29 Glucose 115 mg/dL (75-100) H 12/29/21 10:29 Calcium 9.1 mg/dL (8.4-10.2) 12/29/21 10:29 Magnesium 1.80 mg/dL (1.7-2.3) 12/19/21 Unknown Total Bilirubin 0.50 mg/dL (0.1-1.2) 12/29/21 10:29 Direct Bilirubin 0.4 mg/dL (0-0.2) H 12/25/21 14:00 Indirect Bilirubin 0.3 mg/dL 12/25/21 14:00 AST 89 units/L (5-40) H 12/29/21 10:29 ALT 980 units/L (7-56) H 12/29/21 10:29 Alkaline Phosphatase 118 units/L (35-129) 12/29/21 10: Total Creatine Kinase 119 units/L (55-170) 12/19/21 Unknown Total Protein 4.9 g/dL (6.3-8.2) L 12/29/21 10: Albumin 3.5 g/dL (3.9-5) L 12/29/21 10: Albumin/Globulin Ratio 2.5 % 12/29/21 10:29 Urine Color Yellow (Yellow) 12/19/21 Unknown Urine Turbidity Clear (Clear) 12/19/21 Unknown Urine pH 5.0 (5.0-7.0) 12/19/21 Unknown Ur Specific [place] 1.028 (1.003-1.030) 12/19/21 Unknown Urine Protein <15 mg/dl mg/dL (Negative) 12/19/21 Unknown Urine Glucose (UA) Neg mg/dL (Negative) 12/19/21 Unknown Urine Ketones 20 mg/dL (Negative) 12/19/21 Unknown Urine Blood Neg (Negative) 12/19/21 Unknown Urine Nitrite Neg (Negative) 12/19/21 Unknown Urine Bilirubin Neg (Negative) 12/19/21 Unknown Urine Urobilinogen 2.0 mg/dL (<2.0) 12/19/21 Unknown Ur Leukocyte Esterase Neg (Negative) 12/19/21 Unknown Urine WBC (Auto) 2.0 /HPF (0.0-6.0) 12/19/21 Unknown Urine RBC (Auto) 0.0 /HPF (0.0-6.0) 12/19/21 Unknown Urine Mucus Few /HPF 12/19/21 Unknown Salicylates < 0.3 mg/dL (2.8-20.0) L 12/19/21 Unknown Urine Opiates Screen Negative 12/19/21 Unknown Urine Methadone Screen Negative 12/19/21 Unknown Acetaminophen 5.0 ug/mL (10.0-30.0) L 12/20/21 15:08 Ur Barbiturates Screen Negative 12/19/21 Unknown Ur Phencyclidine Scrn Negative 12/19/21 Unknown Ur Amphetamines Screen Negative 12/19/21 Unknown U Benzodiazepines Scrn Negative 12/19/21 Unknown Urine Cocaine Screen Positive 12/19/21 Unknown U Marijuana (THC) Screen Negative 12/19/21 Unknown Drugs of Abuse Note Disclamer 12/19/21 Unknown Plasma/Serum Alcohol < 0.01 % (0-0.07) 12/19/21 Unknown [place]/IV: Voiding Method Toilet Active Medications - Current Medications Current Medications: Generic Name Dose Route Start Last Admin Trade Name Freq PRN Reason Stop Dose Admin Albuterol 2.5 mg 12/19/21 18:04 Albuterol 2.5 Mg/3 Ml Nebu IH Q3HRT PRN Shortness Of Breath Fluoxetine HCl 20 mg 12/21/21 12:00 12/29/21 09:02 Fluoxetine 20 Mg Cap PO 20 mg QDAY MARCOS Administration Ibuprofen 600 mg 12/19/21 18:04 12/29/21 22:18 Ibuprofen 600 Mg Tab PO 600 mg Q6H PRN Administration Pain, Mild (1-3) Morphine Sulfate 2 mg 12/19/21 18:04 12/21/21 03:15 Morphine 2 Mg/1 Ml Inj IV 2 mg Q8H PRN Administration Pain, Moderate (4-6) Sodium Chloride 10 ml 12/19/21 22:00 12/29/21 22:18 Sodium Chloride 0.9% 10 Ml Flush Syringe IV 10 ml BID MARCOS Administration Sodium Chloride 10 ml 12/19/21 18:04 Sodium Chloride 0.9% 10 Ml Flush Syringe IV PRN PRN LINE FLUSH Trazodone HCl 50 mg 12/21/21 22:00 12/29/21 22:17 Trazodone 50 Mg Tab PO 50 mg QHS MARCOS Administration Nutrition/Malnutrition Assess - Dietary Evaluation Nutrition/Malnutrition Findings: Nutrition Notes Start: 12/21/21 11:31 Freq: Status: Active Protocol: Document 12/24/21 16:36 FERNANDO (Rec: 12/24/21 16:55 FERNANDO [id number]) Nutrition Notes Initial or Follow up Brief Note Other Pertinent Diagnosis Schizo-Affective Disorder, Acetaminophen OD, Cocaine & EtOH Dependence... Current Diet Regular Diet (since L 12/23). Labs/Tests 12/24: T Bili 1.2, AST 912, ALT 4341. Pertinent Medications 12/24: Nutriutionally unremarkable. Height 5 ft 7 in Weight 63.4 kg [place] Body Weight (kg) 67.27 BMI 21.9 Weight change and time frame No body weight change reported in 3 days. Weight Status Appropriate Subjective/Other Information RD consult for routine F/U on Dietary Advancement. Pt's PO intake of meals has been Good (100%), according to ADL notes. Pt is on Room Air, O2 saturation @ 97%, according to Physical Assessment History notes. Percent of energy/protein needs met: Prescribed Regular Diet provides for energy/protein needs (2,289 Kcal/89 g) during LOS. #1 Nutrition Diagnosis Inadequate oral intake Comments: Pt's PO intake of meals has been Good (100%), according to ADL notes. Diagnosis Progress(for reassessment Resolved documentation) Is patient on ventilator? No Is Patient Ambulatory and/or Out of Bed Yes REE-([facility]-ambulatory/OOB) [ 1842.919 [id number]] Kcal/Kg value to use for calculation 27 Approximate Energy Requirements Using 1712 kcal/Kg Calculation Used for Recommendations Kcal/kg Additional Notes Protein: 0.8-1 g/Kg ABW; 51-63 g/day. Fluids: 1 ml/Kcal, or as per MD. Nutrition Intervention Change Diet Order: Continue Regular Diet. Goal #1 Maintain body weight within +/ -3% of admission body weight during LOS. Revisit per MD consult or patient Sign Off request: Additional Comments Continue monitoring food tolerance, %PO intake of meals , and BM.
[2021-12-30] MEDS: FLUoxetine 20 MG CAP PO SCH (09:31)
[2021-12-30 12:24] VITALS: BP 130/87
[2021-12-30] MEDS: IBUPROFEN 600 MG TAB PO PRN (13:35)
== END 2021-12-30 14:40 | disposition home or self-care (01) | DRG 918 ==
LOC: ED 16:02 → IMCU 18:05 → 3A 12-25 13:20
PROVIDERS: ADMIT Internal Medicine; ATTEND Hospitalist
DX: T39.1X2A Poisoning by 4-Aminophenol derivatives, intentional self-harm, initial encounter (principal); T39.1X1A Poisoning by 4-Aminophenol derivatives, accidental (unintentional), initial encounter; Y92.89 Other specified places as the place of occurrence of the external cause; F20.9 Schizophrenia, unspecified; F32.9 Major depressive disorder, single episode, unspecified; F14.10 Cocaine abuse, uncomplicated; Z82.49 Family history of ischemic heart disease and other diseases of the circulatory system; F10.20 Alcohol dependence, uncomplicated; Y90.9 Presence of alcohol in blood, level not specified; K71.10 Toxic liver disease with hepatic necrosis, without coma
CPT/HCPCS: 36415; 76700; 80048; 80053; 80076; 80307; 80320; 81001; 82550; 83735; 84450; 84460; 85025; 85027; 85610; 85730; 93005; 94640; 96374; 96375; 99291; G0378; J3490; J7060; G0480; J0132; J0330; J1451; J2270; J7030; J7070

== ENCOUNTER 2022-01-03 16:28 | Emergency (ER) | payer SELFPAY ==
[2022-01-03] MEDS ORDERED: SODIUM CHLORIDE 0.9% 1000 ML 1,000 ML IV ONE (18:45)
[2022-01-03 19:35] LABS: Basophils # (Auto) 0.1 K/mm3 (0.0-0.1); Basophils % (Auto) 0.8 % (0.0-1.8); Eosinophils # (Auto) 0.2 K/mm3 (0.0-0.4); Eosinophils % (Auto) 1.6 % (0.0-4.3); Hematocrit 39.1 % (35.5-45.6); Hemoglobin 13.1 gm/dl (11.8-15.2); Lymphocytes % (Auto) 20.9 % (13.4-35.0); Mean Corpuscular HGB Conc 33 % (32-34); Mean Corpuscular Volume 91 fl (84-94); Monocytes # (Auto) 1.4 K/mm3 (0.0-0.8); Monocytes % (Auto) 9.7 % (0.0-7.3); Platelet Count 454 K/mm3 (140-440); Red Blood Count 4.29 M/mm3 (3.65-5.03); Red Cell Distribution Width 13.9 % (13.2-15.2)
[2022-01-03 19:53] LABS: Alanine Aminotransferase 381 units/L (7-56); Albumin 4.3 g/dL (3.9-5); BUN/Creatinine Ratio 38; Blood Urea Nitrogen 38 mg/dL (9-20); Calcium 9.3 mg/dL (8.4-10.2); Hemolysis Index 7
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
[2022-01-04] MEDS ORDERED: ACETAMINOPHEN 325 MG TAB PO ONE (01:03)
[2022-01-04 01:41] LABS: Bilirubin,Urine NEG (Negative); Blood,Urine NEG (Negative); Color,Urine Yellow (Yellow); Mucus,Urine 1+ /HPF; Protein,Urine <15 mg/dL mg/dL (Negative)
[2022-01-04 01:52] LABS: Amphetamine Screen,Urine PRESUMPTIVE POSITIVE; Benzodiazepines Screen,Urine PRESUMPTIVE NEGATIVE; Cannabinoid Screen,Urine PRESUMPTIVE NEGATIVE; Cocaine Screen,Urine PRESUMPTIVE POSITIVE; Methadone Screen,Urine PRESUMPTIVE NEGATIVE; Opiate Screen,Urine PRESUMPTIVE NEGATIVE
[2022-01-04] MEDS ORDERED: NEOMY 3.5 MG/BACIT 400 UNITS/POLY B 5000 UNITS OINT 15 GM TP SCH (08:00)
[2022-01-04 09:53] VITALS: BP 118/70
[2022-01-04] MEDS ORDERED: cephALEXin ORAL LIQD 500 MG/10 ML ORAL LIQD PO SCH (10:00)
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
[2022-01-04] MEDS ORDERED: FLUoxetine 20 MG CAP PO SCH (11:00)
[2022-01-04] MEDS ORDERED: traZODone 50 MG TAB PO SCH (22:00)
== END 2022-01-04 12:38 | disposition home or self-care (01) ==
LOC: ED 16:28
DX: T22.011A Burn of unspecified degree of right forearm, initial encounter (principal); R06.02 Shortness of breath; N39.0 Urinary tract infection, site not specified; F19.10 Other psychoactive substance abuse, uncomplicated; Z87.891 Personal history of nicotine dependence; Z79.899 Other long term (current) drug therapy; Z20.822 Contact with and (suspected) exposure to COVID-19; X08.8XXA Exposure to other specified smoke, fire and flames, initial encounter; Y93.89 Activity, other specified; Y92.89 Other specified places as the place of occurrence of the external cause; Y99.8 Other external cause status
CPT/HCPCS: 36415; 80053; 80307; 81001; 85025; 86140; 87086; 96361; 96365; 96366; 99284; J0690; J7030; U0003; 80320; G0480